=== PATIENT | female | born 1980 | race Caucasian/White ===

== ENCOUNTER 2018-01-22 03:16 | Inpatient (IN) | payer OTHER ==
[2018-01-22] VITALS (13 sets, daily range): BP systolic 88–134; BP diastolic 50–80; PULSE 93–116; RESP 15; TEMP 97.6–99; O2SAT 96–100
[~2018-01-22] VITALS: Ht 170.2 cm; Wt 71.2 kg
[2018-01-22] MEDS ORDERED: LIDOCAINE HCL 1% PF 30 ML VIAL ONE (03:36)
[2018-01-22] MEDS ORDERED: ONDANSETRON HCL 4 MG/2 ML VIAL ONE (03:37)
[2018-01-22] MEDS ORDERED: VECURONIUM BROMIDE 10 MG VIAL ONE (03:52)
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
[2018-01-22] MEDS ORDERED: IOHEXOL 350 MG/ML 10 ML VIAL (for RAD DIAG) IVCONTRAST ONE (04:23)
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
[2018-01-22] MEDS ORDERED: NURSING INFORMATION XX SCH (04:45)
[2018-01-22] MEDS ORDERED: CHLORHEXIDINE GLUCONATE 2 % 1 PACK (2 CLOTHS) TOP PRN (04:45)
[2018-01-22] MEDS ORDERED: ENALAPRILAT 1.25 MG/ML VIAL IV PUSH PRN (04:45)
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
[2018-01-22] MEDS ORDERED: NEED HT & WT SCH (05:15)
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
[2018-01-22] MEDS ORDERED: GENTAMICIN INJ 80 MG in SODIUM CHLORIDE 0.9% INJ 100 ML IV ONE (06:00)
[2018-01-22] MEDS ORDERED: PROPOFOL 500 MG/50 ML INJ 50 ML ONE (06:03)
[2018-01-22] MEDS: SODIUM CHLOR 0.9% 1000 ML INJ 1,000 ML IV SCH ×3 (06:07→19:15)
[2018-01-22] MEDS: ceFAZolin 2 GM PREMIX 50 ML IV SCH ×3 (06:07→22:03)
[2018-01-22] MEDS: PANTOPRAZOLE SODIUM 40 MG VIAL IVP SCH (06:07)
[2018-01-22 06:08] LABS: AUTOMATED NEUTROPHIL # 15.3 TH/MM3 (1.8-7.7); BASOPHIL % 0.2 % (0.0-2.0); EOSINOPHIL % 0.2 % (0.0-4.0); HEMATOCRIT 52.5 % (35.0-46.0); HEMOGLOBIN 17.5 GM/DL (11.6-15.3); LYMPH % 14.5 % (9.0-44.0); LYMPHOCYTE # 2.7 TH/MM3 (1.0-4.8); MEAN CELL VOLUME 91.7 FL (80.0-100.0); MEAN CORPUSCULAR HEMOGLOBIN 30.5 PG (27.0-34.0); MEAN CORPUSCULAR HGB CONC 33.2 % (32.0-36.0); MEAN PLATELET VOLUME 9.5 FL (7.0-11.0); MONO % 3.4 % (0.0-8.0); MONOCYTE # 0.6 TH/MM3 (0-0.9); NEUT % 81.7 % (16.0-70.0); PLATELET COUNT 196 TH/MM3 (150-450); RED BLOOD COUNT 5.73 MIL/MM3 (4.00-5.30); RED CELL DISTRIBUTION WIDTH 16.8 % (11.6-17.2); WHITE BLOOD COUNT 18.7 TH/MM3 (4.0-11.0)
[2018-01-22] MEDS: fentaNYL 2,500 MCG/NS 250 ML IV PRN ×2 (06:08→17:04)
[2018-01-22 06:23] LABS: INTERNATIONAL NORMALIZED RATIO 1.3 RATIO; PROTHROMBIN TIME - PATIENT 13.4 SEC (9.8-11.6)
[2018-01-22] MEDS ORDERED: SODIUM BICARBONATE 8.4% SOLN 50 MEQ/50 ML VIAL IV SCH (06:30)
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
--- NOTE | 2018-01-22 06:39 | MP ---
cc: Cody Olsen MD DATE OF OPERATION: 01/22/2018 PREOPERATIVE DIAGNOSIS: Left pneumothorax. POSTOPERATIVE DIAGNOSIS: Left pneumothorax. PROCEDURE PERFORMED: Placement of 28-Greenlandic chest tube. SURGEON: Obdulio Olsen MD. ANESTHESIA: 1% lidocaine. PROCEDURE NOTE: In the trauma bay, the patient's left chest was prepped and draped sterilely. 1% lidocaine was used to anesthetize the skin and subcutaneous tissue at the fourth interspace at the anterior axillary line. A skin incision was made using blunt dissection. The intercostal muscle was encountered. A Dorota clamp was used to enter the chest cavity. A joaquin of air escaped on entering. A 28-Greenlandic chest tube was placed. The tube was secured to the chest wall with a suture and then an occlusive dressing was placed. The tube was secured to the Pleur-evac. The patient tolerated the procedure well. Cody Olsen MD JLS/CAT , 05:06 AM , 06:38 AM
[2018-01-22] MEDS: METHOCARBAMOL 500 MG TAB PO SCH ×3 (06:45→22:03)
[2018-01-22] MEDS ORDERED: POTASSIUM CHLOR 20 MEQ PREMIX 100 ML IV PRN ×2 (06:45)
[2018-01-22] MEDS ORDERED: MAGNESIUM SULFATE INJ 4 GM in SODIUM CHLORIDE 0.9% INJ 92 ML IV PRN (06:45)
[2018-01-22] MEDS ORDERED: SODIUM PHOSPHATE INJ 30 MMOL in SODIUM CHLOR 0.9% 250 ML INJ 240 ML IV PRN (06:45)
[2018-01-22] MEDS ORDERED: POTASSIUM PHOSPHATE INJ 30 MMOL in SODIUM CHLOR 0.9% 250 ML INJ 250 ML IV PRN (06:45)
[2018-01-22] MEDS ORDERED: POTASSIUM CHLORIDE 25 MEQ EFFERVESCENT TAB PO PRN ×2 (06:45)
[2018-01-22] MEDS ORDERED: POTASSIUM PHOSPHATE MONOBASIC 500 MG TAB PO PRN (06:45)
[2018-01-22] MEDS ORDERED: POTASSIUM PHOSPHATE MONOBASIC 500 MG TAB PO/TUBE PRN (06:45)
[2018-01-22] MEDS ORDERED: MAGNESIUM SULFATE INJ 2 GM in SODIUM CHLORIDE 0.9% INJ 96 ML IV PRN (06:45)
[2018-01-22] MEDS ORDERED: MAGNESIUM OXIDE 400 MG TAB PO PRN (06:45)
[2018-01-22] MEDS ORDERED: POTASSIUM CHLOR 40 MEQ PREMIX 100 ML IV PRN ×2 (06:45)
[2018-01-22 07:15] LABS: BACTERIA, URINE FEW /hpf; BILIRUBIN, URINE NEG (NEG); BLOOD, URINE LARGE (NEG); GLUCOSE,URINE NEG (NEG); KETONE, URINE NEG (NEG); NITRITE,URINE NEG (NEG); SQUAMOUS EPITHELIAL CELL URINE 2 /hpf (0-5); URINE LEUKOCYTE ESTERASE TRACE (NEG)
[2018-01-22 07:17] LABS: URINE COLOR RED (YELLW/STRAW)
[2018-01-22] MEDS ORDERED: SODIUM BICARBONATE 8.4% INJ 50 MEQ/50 ML SYR ONE (07:26)
[2018-01-22] MEDS: CHLORHEXIDINE 0.12% (ORAL KIT) 15 ML CUP MT SCH ×2 (08:00→19:48)
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
[2018-01-22] MEDS: RESP: ALBUTEROL 2.5 MG/IPRATROPIUM 0.5 MG NEB (SCH) NEB ×3 (08:23→21:43)
[2018-01-22] MEDS: MAGNESIUM HYDROXIDE SUSP 30 ML CUP PO SCH ×2 (09:00→21:00)
[2018-01-22] MEDS ORDERED: MIDAZOLAM HCL 5 MG/ML VIAL (1 ML) ONE ×2 (10:20→11:28)
[2018-01-22] MEDS ORDERED: LACTATED RINGER'S 1000 ML INJ 1,000 ML IV ONE ×2 (10:45→20:00)
[2018-01-22] MEDS ORDERED: ALBUMIN 5% INJ 500 ML IV ONE (10:45)
--- NOTE | 2018-01-22 11:01 | PD.PROCEDR ---
Central Line Procedure REASON FOR PROCEDURE Central venous access PROCEDURE PERFORMED Central line placement: [left SC ] CONSENT emergency consent ANESTHESIA Local injection of 1% Lidocaine DESCRIPTION OF THE PROCEDURE The patient was placed in supine, mild Trendelenburg position. The area was exposed and cleansed with ChloraPrep, times two. Large sterile drape was used to cover the patient, with the site exposed, under sterile conditions including cap, face mask, sterile gown, and sterile gloves. On single attempt, the introducer needle was inserted with negative pressure in syringe and venous flash was obtained. The guide wire was then advanced without any restriction and the needle was removed. The dilator was used without any complications. Using Seldinger technique the [ TLC] catheter was advanced over the guide wire to a depth of [ 15] centimeters. The guide wire was removed. All ports were aspirated with dark venous blood return and flushed easily with sterile saline. All ports were capped. Antibiotic disc was placed around central line at puncture site. The central line was secured to the skin with two interrupted 2.0 silk sutures. The area was bandaged with sterile see-through central line bandage. RADIOLOGICAL DATA CXR p COMPLICATIONS: No apparent complications ESTIMATED BLOOD LOSS: Less than 1 cc. Julisa Sawyer MD Jan 22, 2018 11:01
--- NOTE | 2018-01-22 11:26 | OTSOAPIP ---
TIME SESSION COMPLETED: AM TREATMENT TIME: 0 MINS. CHART REVIEWED. INTERDISCIPLINARY COMMUNICATION: NURSING REQUEST TO HOLD TREATMENT TODAY SECONDARY TO PATIENT SCHEDULE FOR SURGERY OF LEFT LOWER EXTREMITY PLAN: WILL SEE PT NEXT TREATMENT Therapist: JULIÁN CARBAJAL/Esther Signature on file
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
[2018-01-22 12:11] LABS: HEMATOCRIT 33.6 % (35.0-46.0); HEMOGLOBIN 11.4 GM/DL (11.6-15.3)
--- NOTE | 2018-01-22 12:12 | RADRPT ---
EXAM DATE/TIME: 01/22/2018 11:33 [facility] COMPARISON: CT THORAX W CONTRAST, January 22, 2018, 4:05. CHEST SINGLE AP, January 22, 2018, 3:26. INDICATIONS : Central line placement. Evaluate for pneumothorax. MEDICAL HISTORY : None. SURGICAL HISTORY : None. ENCOUNTER: Subsequent ACUITY: 1 day PAIN SCORE: 0/10 LOCATION: chest FINDINGS: Portable AP view the chest demonstrates a normal-sized cardiac silhouette. ETT, left subclavian centr al line, nasogastric tube, and left chest tube are present. No pneumothorax is visualized. There is m ild by basilar airspace opacity. A round density nodule in the right lower lung zone measures 19 mm. CONCLUSION: 1. Left subclavian central line distal tip in the SVC. No pneumothorax is visualized. 2. Mild bibasilar airspace opacity. 1. Mickey Colin MD on January 22, 2018 at 12:06 Board Certified Radiologist. This report was verified electronically.
[2018-01-22] MEDS: LIDOCAINE HCL 5% PATCH T-DERMAL SCH (12:21)
[2018-01-22] MEDS: DOCUSATE SODIUM 50 MG/SENNA 8.6 MG TAB PO SCH ×2 (12:23→22:03)
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
[2018-01-22] MEDS ORDERED: MIDAZOLAM HCL 2 MG/2 ML VIAL IV PUSH ONE (12:45)
--- NOTE | 2018-01-22 12:55 | RADRPT ---
EXAM DATE/TIME: 01/22/2018 12:02 [facility] COMPARISON: CT ABDOMEN & PELVIS W CONTRAST, January 22, 2018, 4:05. PELVIS AP ONLY, January 22, 2018, 3:26. INDICATIONS : Fracture. MEDICAL HISTORY : None. SURGICAL HISTORY : None. ENCOUNTER: Initial ACUITY: 1 day PAIN SCORE: Non-responsive. LOCATION: Bilateral pelvis FINDINGS: Single slightly rotated AP view of the pelvis demonstrates a minimally displaced left pubic bone and superior pubic ramus fracture. There is also a displaced and comminuted fracture of the right acetabu lum with approximately 13 mm of displacement. The distal fragment is less displaced than present on t he prior examination. Proximal femurs appear intact. There is stable discontinuity of the sacral arch es. No soft tissue abnormality is seen. [place] catheter is present within the urinary bladder which co ntains excreted IV contrast. CONCLUSION: 1. Comminuted and displaced fracture of the right acetabulum. There is slightly less displacement oscar n present on the prior study. 2. Stable minimally displaced left pubic bone fracture. 3. Stable fracture through the right sacrum. Mickey Colin MD on January 22, 2018 at 12:51 Board Certified Radiologist. This report was verified electronically.
--- NOTE | 2018-01-22 12:57 | RADRPT ---
EXAM DATE/TIME: 01/22/2018 12:17 [facility] COMPARISON: TIBIA/FIBULA RIGHT ( 1 VW), January 22, 2018, 3:26. INDICATIONS : Fracture. MEDICAL HISTORY : None. SURGICAL HISTORY : None. ENCOUNTER: Initial ACUITY: 1 day PAIN SCORE: Non-responsive. LOCATION: Right knee FINDINGS: AP and lateral views of the right knee demonstrates a comminuted displaced fracture of the patella. T he distal femur and proximal tibia appear intact. Metallic traction device is present. No soft tissue abnormality is identified. There is no definite joint effusion seen. CONCLUSION: Comminuted displaced fracture of the patella. Mickey Colin MD on January 22, 2018 at 12:54 Board Certified Radiologist. This report was verified electronically.
[2018-01-22] MEDS: PROPOFOL 1000 MG/100 ML IV PRN ×3 (13:00→22:30)
--- NOTE | 2018-01-22 13:09 | RADRPT ---
EXAM DATE/TIME: 01/22/2018 12:06 [facility] COMPARISON: No previous studies available for comparison. INDICATIONS : Fracture. MEDICAL HISTORY : None. SURGICAL HISTORY : None. ENCOUNTER: Initial ACUITY: 1 day PAIN SCORE: Non-responsive. LOCATION: Left knee FINDINGS: The small amount of air within the joint capsule. There is fracture of the proximal tibia that proba augustine exits through the medial plateau. The fracture of the lateral corner of the plateau as well.. F ibular head is intact. CONCLUSION: Fracture as above. CT scan would be benefit.. Anup Diehl MD FACR on January 22, 2018 at 13:06 Board Certified Radiologist. This report was verified electronically.
--- NOTE | 2018-01-22 13:12 | RADRPT ---
EXAM DATE/TIME: 01/22/2018 12:12 [facility] COMPARISON: No previous studies available for comparison. INDICATIONS : Fracture. MEDICAL HISTORY : None. SURGICAL HISTORY : None. ENCOUNTER: Initial ACUITY: 1 day PAIN SCORE: Non-responsive. LOCATION: Left ankle FINDINGS: The fracture of the distal fibula extending above the tibial plafond. Distal tibia is intact. Align ment is anatomic about the ankle mortise. CONCLUSION: Fracture distal fibula. Anup Diehl MD FACR on January 22, 2018 at 13:09 Board Certified Radiologist. This report was verified electronically.
[2018-01-22] MEDS ORDERED: MIDAZOLAM HCL 5 MG/ML VIAL (1 ML) IV PUSH ONE (14:15)
[2018-01-22] MEDS: MIDAZOLAM 100 MG/100 ML INJ 100 ML IV PRN (16:26)
[2018-01-22] MEDS ORDERED: RASS Change Order XX ONE (16:30)
[2018-01-22 17:52] LABS: HEMATOCRIT 29.4 % (35.0-46.0); HEMOGLOBIN 10.1 GM/DL (11.6-15.3); MEAN CELL VOLUME 89.1 FL (80.0-100.0); MEAN CORPUSCULAR HEMOGLOBIN 30.7 PG (27.0-34.0); MEAN CORPUSCULAR HGB CONC 34.5 % (32.0-36.0); MEAN PLATELET VOLUME 9.4 FL (7.0-11.0); PLATELET COUNT 80 TH/MM3 (150-450); RED CELL DISTRIBUTION WIDTH 16.8 % (11.6-17.2); WHITE BLOOD COUNT 8.5 TH/MM3 (4.0-11.0)
[2018-01-22 18:18] LABS: BICARBONATE 22.5 MEQ/L (21.0-32.0); CALCIUM 6.3 MG/DL (8.5-10.1); CREATININE 1.38 MG/DL (0.50-1.00)
[2018-01-22 18:35] LABS: CALCIUM-PROTEIN CORRECTED 7.5 MG/DL (8.5-10.1); TOTAL PROTEIN 4.6 GM/DL (6.4-8.2)
[2018-01-23] VITALS (23 sets, daily range): BP systolic 55–132; BP diastolic 50–67; PULSE 88–100; RESP 15–22; TEMP 98.4–99.3; O2SAT 92–100
[2018-01-23 00:35] LABS: HEMATOCRIT 26.4 % (35.0-46.0)
[2018-01-23] MEDS: RESP: ALBUTEROL 2.5 MG/IPRATROPIUM 0.5 MG NEB (SCH) NEB ×4 (02:50→21:44)
[2018-01-23] MEDS: CHLORHEXIDINE GLUCONATE 2 % 1 PACK (2 CLOTHS) TOP SCH (04:00)
[2018-01-23] MEDS: SODIUM CHLOR 0.9% 1000 ML INJ 1,000 ML IV SCH ×2 (04:05→07:41)
[2018-01-23] MEDS: fentaNYL 2,500 MCG/NS 250 ML IV PRN ×2 (04:06→13:35)
[2018-01-23] MEDS: PROPOFOL 1000 MG/100 ML IV PRN ×3 (04:07→20:46)
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
[2018-01-23] MEDS: PANTOPRAZOLE SODIUM 40 MG VIAL IVP SCH (05:34)
[2018-01-23] MEDS: METHOCARBAMOL 500 MG TAB PO SCH ×3 (05:34→22:09)
[2018-01-23] MEDS: ceFAZolin 2 GM PREMIX 50 ML IV SCH ×3 (05:34→22:09)
[2018-01-23 06:19] LABS: AUTOMATED NEUTROPHIL # 5.4 TH/MM3 (1.8-7.7); BASOPHIL % 0.3 % (0.0-2.0); EOSINOPHIL # 0.1 TH/MM3 (0-0.4); EOSINOPHIL % 1.9 % (0.0-4.0); HEMATOCRIT 24.4 % (35.0-46.0); HEMOGLOBIN 8.4 GM/DL (11.6-15.3); LYMPH % 10.8 % (9.0-44.0); LYMPHOCYTE # 0.7 TH/MM3 (1.0-4.8); MEAN CELL VOLUME 89.7 FL (80.0-100.0); MEAN CORPUSCULAR HEMOGLOBIN 30.8 PG (27.0-34.0); MEAN CORPUSCULAR HGB CONC 34.3 % (32.0-36.0); MEAN PLATELET VOLUME 9.3 FL (7.0-11.0); MONO % 6.2 % (0.0-8.0); MONOCYTE # 0.4 TH/MM3 (0-0.9); NEUT % 80.8 % (16.0-70.0); PLATELET COUNT 68 TH/MM3 (150-450); RED BLOOD COUNT 2.72 MIL/MM3 (4.00-5.30); RED CELL DISTRIBUTION WIDTH 17.1 % (11.6-17.2); WHITE BLOOD COUNT 6.6 TH/MM3 (4.0-11.0)
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
[2018-01-23 07:12] LABS: BANDS 26 % (0-6); LYMPHOCYTES 8 % (9-44); MONOCYTES 2 % (0-8); NEUTROPHIL # MANUAL DIFF 5.9 TH/MM3 (1.8-7.7); POLYS (SEG NEUTROPHILS) 63 % (16-70)
[2018-01-23 07:20] LABS: ALBUMIN 2.1 GM/DL (3.4-5.0); BICARBONATE 22.4 MEQ/L (21.0-32.0); CREATININE 1.34 MG/DL (0.50-1.00); TOTAL BILIRUBIN ADULT 0.4 MG/DL (0.2-1.0); TOTAL PROTEIN 4.2 GM/DL (6.4-8.2)
[2018-01-23 07:30] LABS: CALCIUM-PROTEIN CORRECTED 7.4 MG/DL (8.5-10.1)
[2018-01-23] MEDS: MAGNESIUM HYDROXIDE SUSP 30 ML CUP PO SCH ×2 (08:57→22:09)
[2018-01-23] MEDS: LIDOCAINE HCL 5% PATCH T-DERMAL SCH (08:57)
[2018-01-23] MEDS: DOCUSATE SODIUM 50 MG/SENNA 8.6 MG TAB PO SCH ×2 (08:57→22:09)
[2018-01-23] MEDS: CHLORHEXIDINE 0.12% (ORAL KIT) 15 ML CUP MT SCH ×2 (09:00→20:44)
[2018-01-23] MEDS: LACTATED RINGER'S 1000 ML INJ 1,000 ML IV SCH ×2 (10:30→20:46)
[2018-01-23] MEDS ORDERED: IOHEXOL 350 MG/ML 10 ML VIAL (for RAD DIAG) IVCONTRAST ONE (10:57)
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
[2018-01-23] MEDS ORDERED: ROCURONIUM INJ 50 MG/5 ML SYRINGE IV PUSH ONE (12:00)
[2018-01-23] MEDS ORDERED: PROPOFOL 200 MG/20 ML AMP IV ONE (12:00)
[2018-01-23] MEDS ORDERED: LACTATED RINGER'S 1000 ML INJ 1,000 ML IV ONE (12:00)
[2018-01-23] MEDS ORDERED: LIDOCAINE HCL 1% PF 5 ML SYRINGE OTHER ONE (12:00)
[2018-01-23] MEDS ORDERED: CALCIUM GLUCONATE 10% 1 GM/10 ML VIAL ONE (12:20)
[2018-01-23 13:45] LABS: HEMATOCRIT 27.2 % (35.0-46.0); HEMOGLOBIN 9.9 GM/DL (11.6-15.3)
[2018-01-23] MEDS ORDERED: CALCIUM GLUCONATE INJ 1 GM in SODIUM CHLORIDE 0.9% INJ 100 ML IV ONE (14:15)
[2018-01-23] MEDS ORDERED: VANCOMYCIN HCL 1000 MG VIAL ONE (14:30)
[2018-01-23] MEDS ORDERED: SODIUM CHLOR 0.9% 250 ML INJ 250 ML ONE (14:30)
[2018-01-23] MEDS ORDERED: GENTAMICIN SULFATE 80 MG/2 ML VIAL ONE (14:30)
[2018-01-23] MEDS ORDERED: BACITRACIN TOP OINT 15 GM TUBE ONE (14:30)
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
--- NOTE | 2018-01-23 17:26 | PD.OP ---
cc: Michael Nuno MD Operative Report Date of Surgery: Jan 23, 2018 Preoperative Diagnosis: Displaced left ankle bimalleolar fracture, displaced left ulnar shaft fracture Postoperative Diagnosis: Procedure: Open reduction internal fixation left ankle bimalleolar fracture, open reduction fixation left ulna shaft fracture Surgeon: Michael Nuno Dry Wall Installer(s): Irving Agee PA-C The surgical procedure was assisted by my physician broker assistant. My P.A. presence was necessary throughout this case for the manipulation and positioning of the surgical extremity. My P.A. was assisting me throughout the duration of this procedure. The skill set of a physician broker assistant was medically necessary to complete this procedure. During the surgical case the home appliance technician was working at the back table and the physician broker assistant was directly assisting me. Operation and Findings: Implants used : ITS Patient was seen and evaluated preoperatively and found to have a displaced left ulna fracture and a left ankle fracture. Informed consent was obtained after a detailed discussion of risk and benefits of surgery. The operative sites was marked. Patient was brought to the OR, placed on the OR table, and given IV sedation and general endotracheal anesthesia. IV antibiotics were given preoperatively. A timeout procedure was performed. The left arm and left leg were prepped with alcohol followed by Hibiclens and draped in the usual sterile fashion. Attention was turned towards the distal fibula. A four-inch incision was made over the distal fibula. The subcutaneous tissue was dissected with Bovie. The fracture site was visualized. The fracture site was cleaned with curets. The fracture was now reduced. The fracture keyed into anatomic alignment. K-wires were used to hold provisional fixation. A lag screw was placed to compress fracture. A plate was selected and contoured to fit the distal fibula. The plate was provisionally held to bone with K-wires. 3.5 cortical screws were used to compress the plate to bone. Multiple screws were placed above and below the fracture. Next attention was turned towards the medial malleolus. The medial malleolus supposed through a 3 cm incision. Saphenous vein was retracted. Fracture was visualized. Fracture was cleaned with curettes. Fracture was now reduced and keyed into anatomic alignment. K wires were used to hold provisional fixation. 2 guidepins for the 4.0 cannulated screws were placed in a retrograde fashion across the fracture. Fluoroscopy was used to confirm guidepin placement. Cannulated drill was placed over the guidepin. 2 appropriate length screws were now placed. Good compression was applied. Fluoroscopy confirmed well aligned fracture with well-placed hardware. Next, attention was turned to the syndesmosis. The syndesmosis was stressed. There was no widening of the syndesmosis with external rotation of the ankle. Incisions were thoroughly irrigated. The subcutaneous tissue was closed with 3- 0 Vicryl and the skin was closed with 3-0 nylon. Next attention was turned towards the left arm. A 5 inch incision was made over the subcutaneous border of the ulna. Fracture site was visualized. Fracture was cleaned with curettes. Fracture fragments were manipulated and keyed into a appropriate alignment. Excellent reduction was achieved. K wires were used to hold provisional fixation. A plate was placed along the volar aspect of the ulna. Plate was provisionally held to bone with K wires. 3.5 cortical screws were used to compress plate to bone. Multiple screws were placed in the side of the fracture. Final fluoroscopy revealed well aligned fracture with well-placed hardware. Incision was closed with #1 Vicryl, 3-0 Vicryl, and rodir. Sterile dressings were applied. A well molded well- padded ankle splint was applied. The patient was transferred to intensive care in critical condition. Needle and sponge counts were correct. Michael Nuno MD Jan 23, 2018 17:26
--- NOTE | 2018-01-23 18:06 | RADRPT ---
EXAM DATE/TIME: 01/23/2018 16:07 [facility] COMPARISON: No previous studies available for comparison. INDICATIONS : ORIF of the left ankle. MEDICAL HISTORY : Non-responsive SURGICAL HISTORY : Non-responsive ENCOUNTER: Subsequent ACUITY: 2 days PAIN SCORE: Non-responsive. LOCATION: Left ankle CONCLUSION: Fluoroscopic images during placement of plate and screws distal fibula. 2 screws medi al malleolus. Near anatomic alignment. Mark Olivares MD on January 23, 2018 at 18:03 Board Certified Radiologist. This report was verified electronically.
[2018-01-23] MEDS ORDERED: ALBUMIN 5% INJ 500 ML IV ONE (20:15)
[2018-01-23 22:00] LABS: HEMATOCRIT 27.8 % (35.0-46.0); HEMOGLOBIN 9.7 GM/DL (11.6-15.3); MEAN CELL VOLUME 88.5 FL (80.0-100.0); MEAN CORPUSCULAR HEMOGLOBIN 30.9 PG (27.0-34.0); MEAN CORPUSCULAR HGB CONC 34.9 % (32.0-36.0); PLATELET COUNT 137 TH/MM3 (150-450); RED BLOOD COUNT 3.14 MIL/MM3 (4.00-5.30); RED CELL DISTRIBUTION WIDTH 15.7 % (11.6-17.2); WHITE BLOOD COUNT 8.8 TH/MM3 (4.0-11.0)
--- NOTE | 2018-01-23 22:10 | RADRPT ---
EXAM DATE/TIME: 01/23/2018 16:07 [facility] COMPARISON: FOREARM LEFT (2VWS), January 22, 2018, 3:26. INDICATIONS : ORIF of the left forearm. MEDICAL HISTORY : Non-responsive SURGICAL HISTORY : Non-responsive ENCOUNTER: Subsequent ACUITY: 2 days PAIN SCORE: Non-responsive. LOCATION: Left upper extremity CONCLUSION: Fluoroscopic image demonstrating plate and screws along the left ulna. Mark Olivares MD on January 23, 2018 at 22:08 Board Certified Radiologist. This report was verified electronically.
[2018-01-23 22:28] LABS: ALBUMIN 2.2 GM/DL (3.4-5.0); BICARBONATE 23.8 MEQ/L (21.0-32.0); CALCIUM 6.5 MG/DL (8.5-10.1); CALCIUM-PROTEIN CORRECTED 7.7 MG/DL (8.5-10.1); CREATININE 1.2 MG/DL (0.50-1.00); TOTAL BILIRUBIN ADULT 0.5 MG/DL (0.2-1.0); TOTAL PROTEIN 4.7 GM/DL (6.4-8.2)
[2018-01-24] VITALS (17 sets, daily range): BP systolic 117–135; BP diastolic 49–70; PULSE 96–112; RESP 18–22; TEMP 99–101.1; O2SAT 89–99
[2018-01-24] MEDS: CHLORHEXIDINE GLUCONATE 2 % 1 PACK (2 CLOTHS) TOP SCH (00:08)
[2018-01-24] MEDS: fentaNYL 2,500 MCG/NS 250 ML IV PRN ×2 (00:45→11:55)
[2018-01-24] MEDS: PROPOFOL 1000 MG/100 ML IV PRN ×3 (03:02→21:12)
[2018-01-24] MEDS: RESP: ALBUTEROL 2.5 MG/IPRATROPIUM 0.5 MG NEB (SCH) NEB ×4 (03:21→20:06)
--- NOTE | 2018-01-24 05:38 | RADRPT ---
EXAM DATE/TIME: 01/24/2018 04:46 [facility] COMPARISON: CHEST SINGLE AP, January 23, 2018, 3:41. INDICATIONS : Shortness of breath. MEDICAL HISTORY : Non-responsive SURGICAL HISTORY : Non-responsive ENCOUNTER: Subsequent ACUITY: 3 days PAIN SCORE: Non-responsive. LOCATION: Bilateral chest FINDINGS: Bibasilar consolidation and small effusions worsening, especially on the left. Left chest tube remain s in place. No pneumothorax. Heart size stable and within normal limits. Endotracheal tube tip is approximately 3 cm above the nisha. Nasogastric tube courses into the stoma ch. There is a left subclavian central venous catheter with tip in the superior vena cava. CONCLUSION: Left greater than right basilar consolidation and small effusions. There has been worsening on the le ft. No pneumothorax. Left chest tube remains in place. Mickey Kline MD on January 24, 2018 at 5:36 Board Certified Radiologist. This report was verified electronically.
[2018-01-24] MEDS: ceFAZolin 2 GM PREMIX 50 ML IV SCH ×3 (05:52→20:23)
[2018-01-24] MEDS: METHOCARBAMOL 500 MG TAB PO SCH ×3 (05:52→21:49)
[2018-01-24] MEDS: PANTOPRAZOLE SODIUM 40 MG VIAL IVP SCH (05:53)
[2018-01-24] MEDS: LACTATED RINGER'S 1000 ML INJ 1,000 ML IV SCH ×2 (05:53→16:25)
[2018-01-24 06:00] LABS: AUTOMATED NEUTROPHIL # 6.1 TH/MM3 (1.8-7.7); BASOPHIL % 0.6 % (0.0-2.0); EOSINOPHIL # 0.1 TH/MM3 (0-0.4); EOSINOPHIL % 1.9 % (0.0-4.0); HEMATOCRIT 24.6 % (35.0-46.0); HEMOGLOBIN 8.6 GM/DL (11.6-15.3); LYMPH % 8.1 % (9.0-44.0); LYMPHOCYTE # 0.6 TH/MM3 (1.0-4.8); MEAN CELL VOLUME 89.1 FL (80.0-100.0); MEAN CORPUSCULAR HGB CONC 34.8 % (32.0-36.0); MEAN PLATELET VOLUME 8.9 FL (7.0-11.0); MONO % 3.3 % (0.0-8.0); MONOCYTE # 0.2 TH/MM3 (0-0.9); NEUT % 86.1 % (16.0-70.0); PLATELET COUNT 119 TH/MM3 (150-450); RED BLOOD COUNT 2.76 MIL/MM3 (4.00-5.30); RED CELL DISTRIBUTION WIDTH 15.4 % (11.6-17.2); WHITE BLOOD COUNT 7.1 TH/MM3 (4.0-11.0)
[2018-01-24 06:22] LABS: ALBUMIN 2.3 GM/DL (3.4-5.0); BICARBONATE 23.3 MEQ/L (21.0-32.0); CALCIUM 6.5 MG/DL (8.5-10.1); CREATININE 1.2 MG/DL (0.50-1.00)
[2018-01-24 06:23] LABS: CALCIUM-PROTEIN CORRECTED 7.6 MG/DL (8.5-10.1); TOTAL BILIRUBIN ADULT 0.5 MG/DL (0.2-1.0); TOTAL PROTEIN 4.8 GM/DL (6.4-8.2)
[2018-01-24] MEDS: MAGNESIUM HYDROXIDE SUSP 30 ML CUP PO SCH ×2 (09:00→21:00)
[2018-01-24] MEDS: DOCUSATE SODIUM 50 MG/SENNA 8.6 MG TAB PO SCH ×2 (09:00→21:00)
[2018-01-24] MEDS: CHLORHEXIDINE 0.12% (ORAL KIT) 15 ML CUP MT SCH ×2 (09:01→20:00)
[2018-01-24] MEDS: MIDAZOLAM 100 MG/100 ML INJ 100 ML IV PRN (11:13)
[2018-01-24] MEDS ORDERED: ENOXAPARIN SODIUM 30 MG/0.3 ML SYRINGE SQ SCH (13:00)
[2018-01-24] MEDS: ACETAMINOPHEN 650 MG/20.3 ML UDC PO PRN (13:10)
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
[2018-01-24 18:50] LABS: HEMATOCRIT 24.8 % (35.0-46.0); HEMOGLOBIN 8.6 GM/DL (11.6-15.3)
[2018-01-24] MEDS ORDERED: ROCURONIUM INJ 50 MG/5 ML VIAL ONE ×2 (20:20)
[2018-01-24] MEDS ORDERED: ROCURONIUM INJ 50 MG/5 ML VIAL IV PRN (20:30)
[2018-01-24] MEDS ORDERED: ROCURONIUM INJ 100 MG/10 ML VIAL IV ONE (21:00)
[2018-01-24] MEDS ORDERED: CISATRACURIUM INJ 100 MG in SODIUM CHLOR 0.9% 250 ML INJ 250 ML IV PRN (21:00)
--- NOTE | 2018-01-24 21:32 | RADRPT ---
EXAM DATE/TIME: 01/24/2018 20:46 [facility] COMPARISON: CHEST SINGLE AP, January 24, 2018, 4:46. INDICATIONS : Shortness of breath. MEDICAL HISTORY : None. SURGICAL HISTORY : None. ENCOUNTER: Subsequent ACUITY: 3 days PAIN SCORE: Non-responsive. LOCATION: chest FINDINGS: Endotracheal tube, nasogastric tube, left thoracostomy tube and left subclavian central line are stab le. There has been slight interval improvement in aeration with decrease in confluence of basilar inf iltrates. Heart and contours are grossly stable. CONCLUSION: Stable to slightly improved aeration Mickey Mancilla MD on January 24, 2018 at 21:29 Board Certified Radiologist. This report was verified electronically.
[2018-01-24] MEDS: ENOXAPARIN SODIUM 30 MG/0.3 ML SYRINGE SQ SCH (21:44)
[2018-01-24] MEDS ORDERED: SODIUM BICARBONATE 8.4% SOLN 50 MEQ/50 ML VIAL IV ONE (22:45)
[2018-01-24] MEDS ORDERED: LACTATED RINGER'S 1000 ML INJ 1,000 ML IV ONE (22:45)
[2018-01-25] VITALS (19 sets, daily range): BP systolic 91–133; BP diastolic 44–61; PULSE 92–103; RESP 10–27; TEMP 99–100.2; O2SAT 94–100
[2018-01-25] MEDS: LACTATED RINGER'S 1000 ML INJ 1,000 ML IV SCH ×3 (02:30→16:47)
[2018-01-25] MEDS: PROPOFOL 1000 MG/100 ML IV PRN (02:40)
[2018-01-25] MEDS: fentaNYL 2,500 MCG/NS 250 ML IV PRN (02:59)
[2018-01-25] MEDS: RESP: ALBUTEROL 2.5 MG/IPRATROPIUM 0.5 MG NEB (SCH) NEB ×4 (03:58→20:27)
[2018-01-25] MEDS: CHLORHEXIDINE GLUCONATE 2 % 1 PACK (2 CLOTHS) TOP SCH (04:00)
[2018-01-25] MEDS: ceFAZolin 2 GM PREMIX 50 ML IV SCH ×2 (05:27→13:00)
[2018-01-25] MEDS: MIDAZOLAM 100 MG/100 ML INJ 100 ML IV PRN ×2 (05:27→15:20)
[2018-01-25] MEDS: METHOCARBAMOL 500 MG TAB PO SCH ×3 (05:27→21:00)
[2018-01-25] MEDS: PANTOPRAZOLE SODIUM 40 MG VIAL IVP SCH (05:27)
--- NOTE | 2018-01-25 05:36 | RADRPT ---
EXAM DATE/TIME: 01/25/2018 04:29 [facility] COMPARISON: CHEST SINGLE AP, January 24, 2018, 20:46. INDICATIONS : Shortness of breath MEDICAL HISTORY : None. SURGICAL HISTORY : None. ENCOUNTER: Subsequent ACUITY: 4 - 6 days PAIN SCORE: Non-responsive. LOCATION: Bilateral chest FINDINGS: Basilar predominant air space opacities again noted and not significantly changed. Left chest tube re apolinar in place. No perceptible pneumothorax. Heart size stable, upper limits of normal. Endotracheal tube tip is approximately 4 cm above the nisha. Nasogastric tube coiled in the stomach. There is a left subclavian central venous catheter with tip in the superior vena cava. CONCLUSION: No significant change Mickey Kline MD on January 25, 2018 at 5:33 Board Certified Radiologist. This report was verified electronically.
[2018-01-25 05:54] LABS: AUTOMATED NEUTROPHIL # 5.6 TH/MM3 (1.8-7.7); BASOPHIL % 0.2 % (0.0-2.0); EOSINOPHIL # 0.1 TH/MM3 (0-0.4); EOSINOPHIL % 1.9 % (0.0-4.0); HEMATOCRIT 24.9 % (35.0-46.0); HEMOGLOBIN 8.6 GM/DL (11.6-15.3); LYMPH % 6.4 % (9.0-44.0); LYMPHOCYTE # 0.4 TH/MM3 (1.0-4.8); MEAN CELL VOLUME 90.6 FL (80.0-100.0); MEAN CORPUSCULAR HEMOGLOBIN 31.2 PG (27.0-34.0); MEAN CORPUSCULAR HGB CONC 34.5 % (32.0-36.0); MEAN PLATELET VOLUME 9.2 FL (7.0-11.0); MONO % 3.6 % (0.0-8.0); MONOCYTE # 0.2 TH/MM3 (0-0.9); NEUT % 87.9 % (16.0-70.0); PLATELET COUNT 107 TH/MM3 (150-450); RED BLOOD COUNT 2.75 MIL/MM3 (4.00-5.30); RED CELL DISTRIBUTION WIDTH 15.4 % (11.6-17.2); WHITE BLOOD COUNT 6.3 TH/MM3 (4.0-11.0)
[2018-01-25 06:21] LABS: ALBUMIN 1.8 GM/DL (3.4-5.0); BICARBONATE 23.7 MEQ/L (21.0-32.0); CALCIUM 6.6 MG/DL (8.5-10.1); CALCIUM-PROTEIN CORRECTED 7.9 MG/DL (8.5-10.1); CREATININE 2.12 MG/DL (0.50-1.00); TOTAL BILIRUBIN ADULT 0.5 MG/DL (0.2-1.0); TOTAL PROTEIN 4.6 GM/DL (6.4-8.2)
[2018-01-25 06:48] LABS: BANDS 27 % (0-6); LYMPHOCYTES 12 % (9-44); MONOCYTES 4 % (0-8); MYELOCYTES 1 % (0-0); NEUTROPHIL # MANUAL DIFF 5.2 TH/MM3 (1.8-7.7); POLYS (SEG NEUTROPHILS) 54 % (16-70)
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
[2018-01-25] MEDS: LIDOCAINE HCL 5% PATCH T-DERMAL SCH (08:23)
[2018-01-25] MEDS: CHLORHEXIDINE 0.12% (ORAL KIT) 15 ML CUP MT SCH ×2 (08:24→21:01)
[2018-01-25] MEDS: MAGNESIUM HYDROXIDE SUSP 30 ML CUP PO SCH ×2 (08:24→21:00)
[2018-01-25] MEDS: DOCUSATE SODIUM 50 MG/SENNA 8.6 MG TAB PO SCH ×2 (08:24→21:00)
[2018-01-25] MEDS ORDERED: ALBUMIN 5% INJ 500 ML IV ONE (09:45)
[2018-01-25] MEDS: LACTULOSE SYRUP 20 GM/30 ML CUP PO SCH (10:34)
[2018-01-25] MEDS: fentaNYL DRIP 250 ML IV PRN (14:45)
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
[2018-01-25 18:03] LABS: BICARBONATE 24.4 MEQ/L (21.0-32.0); CALCIUM 6.6 MG/DL (8.5-10.1); CALCIUM-PROTEIN CORRECTED 7.8 MG/DL (8.5-10.1); CREATININE 2.96 MG/DL (0.50-1.00); TOTAL BILIRUBIN ADULT 0.5 MG/DL (0.2-1.0); TOTAL PROTEIN 4.8 GM/DL (6.4-8.2)
[2018-01-25] MEDS: SODIUM BICARBONATE 8.4% INJ 50 MEQ in DEXTROSE 5% IN WATE 1000ML INJ 1,000 ML IV SCH ×2 (21:00)
[2018-01-25] MEDS: ENOXAPARIN SODIUM 30 MG/0.3 ML SYRINGE SQ SCH (21:00)
[2018-01-26] VITALS (18 sets, daily range): BP systolic 96–138; BP diastolic 51–76; PULSE 84–108; RESP 16–21; TEMP 99.9–101.3; O2SAT 95–98
[2018-01-26] MEDS: MIDAZOLAM 100 MG/100 ML INJ 100 ML IV PRN (01:55)
[2018-01-26] MEDS: CHLORHEXIDINE GLUCONATE 2 % 1 PACK (2 CLOTHS) TOP SCH (04:00)
--- NOTE | 2018-01-26 04:15 | RADRPT ---
EXAM DATE/TIME: 01/26/2018 03:29 [facility] COMPARISON: CHEST SINGLE AP, January 25, 2018, 4:29. INDICATIONS : Pulmonary contusion. MEDICAL HISTORY : Non-responsive. SURGICAL HISTORY : Non-responsive. ENCOUNTER: Subsequent ACUITY: 4 - 6 days PAIN SCORE: Non-responsive. LOCATION: Bilateral chest FINDINGS: 2 portable frontal views of the chest show a new moderate size right apical pneumothorax.. Bilateral pulmonary infiltrates predominantly at the bases. Left thoracostomy tube without pneumothorax. Left s ubclavian central line. Tip of the endotracheal tube 3 cm from the nisha. Nasogastric tube coiled in the fundus. The heart is normal in size. CONCLUSION: 1. New moderate sized right apical pneumothorax. 2. No pneumothorax on the left. 3. Unchanged pulmonary infiltrates. Can Rivera Jr., MD on January 26, 2018 at 4:12 Board Certified Radiologist. This report was verified electronically.
[2018-01-26] MEDS: RESP: ALBUTEROL 2.5 MG/IPRATROPIUM 0.5 MG NEB (SCH) NEB ×2 (04:50→07:43)
[2018-01-26 05:52] LABS: AUTOMATED NEUTROPHIL # 5.8 TH/MM3 (1.8-7.7); BASOPHIL % 0.5 % (0.0-2.0); EOSINOPHIL # 0.1 TH/MM3 (0-0.4); EOSINOPHIL % 1.9 % (0.0-4.0); HEMATOCRIT 22.8 % (35.0-46.0); HEMOGLOBIN 7.6 GM/DL (11.6-15.3); LYMPHOCYTE # 0.4 TH/MM3 (1.0-4.8); MEAN CELL VOLUME 92.2 FL (80.0-100.0); MEAN CORPUSCULAR HEMOGLOBIN 30.9 PG (27.0-34.0); MEAN CORPUSCULAR HGB CONC 33.6 % (32.0-36.0); MEAN PLATELET VOLUME 9.1 FL (7.0-11.0); MONO % 4.3 % (0.0-8.0); MONOCYTE # 0.3 TH/MM3 (0-0.9); NEUT % 87.3 % (16.0-70.0); PLATELET COUNT 109 TH/MM3 (150-450); RED BLOOD COUNT 2.47 MIL/MM3 (4.00-5.30); RED CELL DISTRIBUTION WIDTH 15.7 % (11.6-17.2); WHITE BLOOD COUNT 6.6 TH/MM3 (4.0-11.0)
[2018-01-26 05:54] LABS: ALBUMIN 1.9 GM/DL (3.4-5.0); BICARBONATE 22.9 MEQ/L (21.0-32.0); CALCIUM 6.9 MG/DL (8.5-10.1); CALCIUM-PROTEIN CORRECTED 8.1 MG/DL (8.5-10.1); CREATININE 3.96 MG/DL (0.50-1.00); TOTAL BILIRUBIN ADULT 0.6 MG/DL (0.2-1.0); TOTAL PROTEIN 4.9 GM/DL (6.4-8.2)
[2018-01-26] MEDS: PANTOPRAZOLE SODIUM 40 MG VIAL IVP SCH (06:04)
[2018-01-26] MEDS: METHOCARBAMOL 500 MG TAB PO SCH ×3 (06:04→20:06)
[2018-01-26] MEDS: ACETAMINOPHEN 650 MG/20.3 ML UDC PO PRN (07:03)
[2018-01-26] MEDS: fentaNYL DRIP 250 ML IV PRN ×3 (07:04→20:08)
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
[2018-01-26] MEDS: LIDOCAINE HCL 5% PATCH T-DERMAL SCH (08:11)
[2018-01-26] MEDS: LACTULOSE SYRUP 20 GM/30 ML CUP PO SCH (08:12)
[2018-01-26] MEDS: HEPARIN SODIUM - SQ 10,000 UNITS/ML VIAL SQ SCH ×3 (08:12→20:06)
[2018-01-26] MEDS: DOCUSATE SODIUM 50 MG/SENNA 8.6 MG TAB PO SCH ×2 (08:12→20:06)
[2018-01-26] MEDS: MAGNESIUM HYDROXIDE SUSP 30 ML CUP PO SCH ×2 (08:12→20:05)
[2018-01-26] MEDS: CHLORHEXIDINE 0.12% (ORAL KIT) 15 ML CUP MT SCH ×2 (08:12→20:05)
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
[2018-01-26] MEDS: NOREPINEPHRINE-DEXTROSE DRIP 250 ML IV PRN ×2 (10:12→17:04)
[2018-01-26] MEDS ORDERED: TERBUTALINE INJ 1 MG/ML AMP SQ PRN (10:15)
[2018-01-26 10:26] LABS: AMORPHOUS SEDIMENT, URINE RARE; BACTERIA, URINE FEW /hpf; BILIRUBIN, URINE NEG (NEG); BLOOD, URINE LARGE (NEG); GLUCOSE,URINE TRACE mg/dL (NEG); KETONE, URINE NEG (NEG); NITRITE,URINE NEG (NEG); SQUAMOUS EPITHELIAL CELL URINE 42 /hpf (0-5); URINE LEUKOCYTE ESTERASE SMALL (NEG)
[2018-01-26 10:27] LABS: URINE COLOR YELLOW (YELLW/STRAW)
[2018-01-26] MEDS: CEFEPIME INJ 2,000 MG in SODIUM CHLORIDE 0.9% INJ 100 ML IV SCH ×2 (10:35→20:06)
[2018-01-26] MEDS ORDERED: LIDOCAINE 1%/EPINEPHrine 1:100,000 SOLN 30 ML VIAL ONE ×2 (12:58→12:59)
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
[2018-01-26] MEDS: VASOPRESSIN 40 U/D5W 100 ML Titrate, Post Cardiac Surgery IV PRN ×2 (14:40)
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
--- NOTE | 2018-01-26 15:24 | PD.OP ---
Operative Report Right pneumothorax Postoperative Diagnosis: Right pneumothorax Procedure: Right chest tube thoracostomy Surgeon: Julisa Sawyer An/Syq 13 Nav/C2 Operator(s): none Operation and Findings: Develop moderate-sized pneumothorax which was seen on chest x-ray-she is a multitrauma patient with multiorgan failure Technique Patient's right thoracic area was thoroughly prepped and draped using usual technique-fifth ICR level transverse incision was placed. Carried out subcutaneous tissue anterior superior margin of the rib palpated-carefully with a hemostat pleural space was entered-lump palpated in a 32 [place] chest tube inserted-chest tube was secured to skin with 0 silk-x-ray confirms good position. Julisa Sawyer MD Jan 26, 2018 15:24
[2018-01-26] MEDS: SODIUM BICARBONATE 8.4% INJ 50 MEQ in DEXTROSE 5% IN WATE 1000ML INJ 1,000 ML IV SCH ×2 (15:46)
[2018-01-26 16:25] LABS: BICARBONATE 23.1 MEQ/L (21.0-32.0); CALCIUM 7.3 MG/DL (8.5-10.1); CREATININE 4.84 MG/DL (0.50-1.00)
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
[2018-01-26 16:39] LABS: CALCIUM-PROTEIN CORRECTED 8.2 MG/DL (8.5-10.1); TOTAL PROTEIN 5.4 GM/DL (6.4-8.2)
[2018-01-26 16:59] LABS: COMPLEMENT C4 18 MG/DL (10-40)
[2018-01-26] MEDS: PROPOFOL 1000 MG/100 ML IV PRN (17:03)
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
[2018-01-26] MEDS ORDERED: SODIUM BICARB 4.2% (INF) INJ 5 MEQ/10 ML SYR IV PUSH ONE (18:00)
[2018-01-26] MEDS ORDERED: SODIUM BICARBONATE 8.4% INJ 50 MEQ/50 ML SYR ONE (18:03)
[2018-01-26] MEDS ORDERED: SODIUM BICARBONATE 8.4% INJ 50 MEQ/50 ML SYR IV ONE (18:15)
[2018-01-26] MEDS: SODIUM BICARBONATE 8.4% INJ 100 MEQ in DEXTROSE 5% IN WATE 1000ML INJ 1,000 ML IV SCH ×2 (18:36)
[2018-01-26] MEDS: CEFTAROLINE IV SCH (18:58)
[2018-01-26] MEDS: SODIUM CHLORIDE 0.9% IV SCH (18:58)
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
[2018-01-27] VITALS (19 sets, daily range): BP systolic 104–128; BP diastolic 57–72; PULSE 68–82; RESP 18; TEMP 97.2–99.7; O2SAT 92–97
[2018-01-27] MEDS: CHLORHEXIDINE GLUCONATE 2 % 1 PACK (2 CLOTHS) TOP SCH (00:24)
[2018-01-27] MEDS: NOREPINEPHRINE-DEXTROSE DRIP 250 ML IV PRN ×2 (00:25→14:11)
[2018-01-27] MEDS: fentaNYL DRIP 250 ML IV PRN ×3 (03:17→17:18)
[2018-01-27] MEDS: MIDAZOLAM 100 MG/100 ML INJ 100 ML IV PRN ×2 (03:18→18:54)
[2018-01-27] MEDS: SODIUM BICARBONATE 8.4% INJ 100 MEQ in DEXTROSE 5% IN WATE 1000ML INJ 1,000 ML IV SCH ×4 (05:19→15:32)
[2018-01-27 05:40] LABS: AUTOMATED NEUTROPHIL # 6.5 TH/MM3 (1.8-7.7); BASOPHIL % 0.3 % (0.0-2.0); EOSINOPHIL # 0.1 TH/MM3 (0-0.4); EOSINOPHIL % 0.9 % (0.0-4.0); HEMATOCRIT 21.9 % (35.0-46.0); HEMOGLOBIN 7.5 GM/DL (11.6-15.3); LYMPH % 4.5 % (9.0-44.0); LYMPHOCYTE # 0.3 TH/MM3 (1.0-4.8); MEAN CELL VOLUME 91.7 FL (80.0-100.0); MEAN CORPUSCULAR HEMOGLOBIN 31.2 PG (27.0-34.0); MEAN PLATELET VOLUME 9.4 FL (7.0-11.0); MONO % 4.9 % (0.0-8.0); MONOCYTE # 0.4 TH/MM3 (0-0.9); NEUT % 89.4 % (16.0-70.0); PLATELET COUNT 119 TH/MM3 (150-450); RED BLOOD COUNT 2.39 MIL/MM3 (4.00-5.30); RED CELL DISTRIBUTION WIDTH 15.5 % (11.6-17.2); WHITE BLOOD COUNT 7.3 TH/MM3 (4.0-11.0)
[2018-01-27 05:55] LABS: ALBUMIN 1.6 GM/DL (3.4-5.0); ALT (GPT) LESS THAN 6 U/L (10-53); AST (GOT) 57 U/L (15-37); BICARBONATE 24.1 MEQ/L (21.0-32.0); BLOOD UREA NITROGEN 38 MG/DL (7-18); CALCIUM 7.4 MG/DL (8.5-10.1); CHLORIDE 106 MEQ/L (98-107); CREATININE 5.49 MG/DL (0.50-1.00); GLOMERULAR FILTRATION RATE 7 ML/MIN (>89); GLUCOSE,RANDOM 139 MG/DL (74-106); SODIUM (NA) 139 MEQ/L (136-145)
[2018-01-27 05:58] LABS: ALKALINE PHOSPHATASE 103 U/L (45-117); CALCIUM-PROTEIN CORRECTED 8.5 MG/DL (8.5-10.1); TOTAL BILIRUBIN ADULT 0.6 MG/DL (0.2-1.0); TOTAL PROTEIN 5.2 GM/DL (6.4-8.2)
[2018-01-27] MEDS: CEFTAROLINE IV SCH ×2 (06:17→17:58)
[2018-01-27] MEDS: SODIUM CHLORIDE 0.9% IV SCH ×2 (06:17→17:58)
[2018-01-27] MEDS: PROPOFOL 1000 MG/100 ML IV PRN ×2 (06:18→17:18)
[2018-01-27] MEDS: METHOCARBAMOL 500 MG TAB PO SCH ×3 (06:18→21:00)
[2018-01-27] MEDS: HEPARIN SODIUM - SQ 10,000 UNITS/ML VIAL SQ SCH ×3 (06:18→21:00)
[2018-01-27] MEDS: VASOPRESSIN 40 U/D5W 100 ML Titrate, Post Cardiac Surgery IV PRN ×4 (06:19→21:00)
[2018-01-27] MEDS: CHLORHEXIDINE 0.12% (ORAL KIT) 15 ML CUP MT SCH ×2 (08:00→20:54)
[2018-01-27] MEDS: DOCUSATE SODIUM 50 MG/SENNA 8.6 MG TAB PO SCH ×2 (08:34→10:21)
[2018-01-27] MEDS: MAGNESIUM HYDROXIDE SUSP 30 ML CUP PO SCH ×3 (08:34→20:59)
[2018-01-27] MEDS: LACTULOSE SYRUP 20 GM/30 ML CUP PO SCH ×2 (08:34→09:00)
[2018-01-27] MEDS: LIDOCAINE HCL 5% PATCH T-DERMAL SCH (09:00)
[2018-01-27] MEDS: CEFEPIME INJ 2,000 MG in SODIUM CHLORIDE 0.9% INJ 100 ML IV SCH (10:20)
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
[2018-01-27] MEDS: METOCLOPRAMIDE HCL 10 MG/2 ML VIAL IV PUSH SCH ×2 (13:23→21:00)
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
[2018-01-27] MEDS ORDERED: HEPARIN SODIUM - IV 10,000 UNITS/10 ML VIAL ONE (16:36)
--- NOTE | 2018-01-27 16:50 | PD.PROCEDR ---
Central Line Procedure REASON FOR PROCEDURE HD PROCEDURE PERFORMED Central line placement: [ ]HD line insertion left femoral vein CONSENT Informed consent for procedure was obtained . The risks and benefits of the procedure were discussed to include but limited to bleeding, clot formation, infection, and even . ANESTHESIA Patient on propofol,fentanyl DESCRIPTION OF THE PROCEDURE The area was exposed and cleansed with ChloraPrep, times two. Large sterile drape was used to cover the patient, with the site exposed, under sterile conditions including cap, face mask, sterile gown, and sterile gloves. On single attempt, the introducer needle was inserted with negative pressure in syringe and venous flash was obtained. The guide wire was then advanced without any restriction and the needle was removed. The dilator was used without any complications. Using Seldinger technique the a double lumen H D catheter was advanced over the guide wire to a depth of [15 ] centimeters. The guide wire was removed. All ports were aspirated with dark venous blood return and flushed easily with sterile saline and heparin All ports were capped. Antibiotic disc was placed around central line at puncture site. The central line was secured to the skin with two interrupted 2.0 silk sutures. The area was bandaged with sterile see-through central line bandage. RADIOLOGICAL DATA COMPLICATIONS: No apparent complications ESTIMATED BLOOD LOSS: Less than 1 cc. Julisa Sawyer MD Jan 27, 2018 16:50
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
[2018-01-28] VITALS (27 sets, daily range): BP systolic 92–118; BP diastolic 46–62; PULSE 66–73; RESP 18–24; TEMP 96.8–98.1; O2SAT 91–97
[2018-01-28] MEDS: fentaNYL DRIP 250 ML IV PRN ×3 (00:15→15:15)
[2018-01-28] MEDS: PROPOFOL 1000 MG/100 ML IV PRN ×2 (00:17→23:00)
[2018-01-28] MEDS: SODIUM BICARBONATE 8.4% INJ 100 MEQ in DEXTROSE 5% IN WATE 1000ML INJ 1,000 ML IV SCH ×4 (03:00→16:45)
[2018-01-28] MEDS: CHLORHEXIDINE GLUCONATE 2 % 1 PACK (2 CLOTHS) TOP SCH (04:00)
--- NOTE | 2018-01-28 04:22 | RADRPT ---
EXAM DATE/TIME: 01/28/2018 02:58 [facility] COMPARISON: CHEST SINGLE AP, January 27, 2018, 11:02. INDICATIONS : Evaluate for pneumothorax. MEDICAL HISTORY : Smoker. SURGICAL HISTORY : section. Tonsillectomy. ENCOUNTER: Subsequent ACUITY: 4 - 6 days PAIN SCORE: Non-responsive. LOCATION: Bilateral chest FINDINGS: Bilateral thoracostomy tubes and nasogastric tube. No pneumothorax on either side. Subcutaneous air o verlies the right chest. Left-sided central line. Heart secured to limits of normal in terms of size. Diffuse consolidation throughout both lungs. Appearance is stable. CONCLUSION: 1. No significant change. 2. No pneumothorax. 3. Diffuse bilateral pulmonary infiltrates. Can Rivera Jr., MD on January 28, 2018 at 4:20 Board Certified Radiologist. This report was verified electronically.
[2018-01-28] MEDS: CEFTAROLINE IV SCH (05:24)
[2018-01-28] MEDS: METHOCARBAMOL 500 MG TAB PO SCH (05:24)
[2018-01-28] MEDS: SODIUM CHLORIDE 0.9% IV SCH (05:24)
[2018-01-28] MEDS: METOCLOPRAMIDE HCL 10 MG/2 ML VIAL IV PUSH SCH ×3 (05:24→21:40)
[2018-01-28] MEDS: HEPARIN SODIUM - SQ 10,000 UNITS/ML VIAL SQ SCH ×3 (05:24→22:00)
[2018-01-28 05:40] LABS: AUTOMATED NEUTROPHIL # 5.3 TH/MM3 (1.8-7.7); BASOPHIL % 0.4 % (0.0-2.0); EOSINOPHIL # 0.3 TH/MM3 (0-0.4); LYMPH % 6.6 % (9.0-44.0); LYMPHOCYTE # 0.4 TH/MM3 (1.0-4.8); MEAN CELL VOLUME 91.4 FL (80.0-100.0); MEAN CORPUSCULAR HEMOGLOBIN 31.2 PG (27.0-34.0); MEAN CORPUSCULAR HGB CONC 34.1 % (32.0-36.0); MEAN PLATELET VOLUME 9.4 FL (7.0-11.0); MONO % 4.5 % (0.0-8.0); MONOCYTE # 0.3 TH/MM3 (0-0.9); NEUT % 84.5 % (16.0-70.0); PLATELET COUNT 148 TH/MM3 (150-450); RED BLOOD COUNT 2.12 MIL/MM3 (4.00-5.30); RED CELL DISTRIBUTION WIDTH 15.3 % (11.6-17.2); WHITE BLOOD COUNT 6.3 TH/MM3 (4.0-11.0)
[2018-01-28 05:53] LABS: HEMATOCRIT 19.4 % (35.0-46.0); HEMOGLOBIN 6.6 GM/DL (11.6-15.3)
[2018-01-28 06:23] LABS: ALBUMIN 1.3 GM/DL (3.4-5.0); ALKALINE PHOSPHATASE 95 U/L (45-117); ALT (GPT) LESS THAN 6 U/L (10-53); AST (GOT) 31 U/L (15-37); BICARBONATE 25.8 MEQ/L (21.0-32.0); BLOOD UREA NITROGEN 49 MG/DL (7-18); CALCIUM 7.4 MG/DL (8.5-10.1); CALCIUM-PROTEIN CORRECTED 8.8 MG/DL (8.5-10.1); CHLORIDE 101 MEQ/L (98-107); CREATININE 6.14 MG/DL (0.50-1.00); GLOMERULAR FILTRATION RATE 6 ML/MIN (>89); GLUCOSE,RANDOM 103 MG/DL (74-106); SODIUM (NA) 138 MEQ/L (136-145); TOTAL BILIRUBIN ADULT 0.7 MG/DL (0.2-1.0); TOTAL PROTEIN 4.7 GM/DL (6.4-8.2)
[2018-01-28] MEDS: ONDANSETRON HCL 4 MG/2 ML VIAL IV PUSH PRN (06:43)
[2018-01-28] MEDS: CHLORHEXIDINE 0.12% (ORAL KIT) 15 ML CUP MT SCH ×2 (08:00→21:19)
[2018-01-28] MEDS: DOCUSATE SODIUM 50 MG/SENNA 8.6 MG TAB PO SCH ×2 (08:43→21:40)
[2018-01-28] MEDS: MAGNESIUM HYDROXIDE SUSP 30 ML CUP PO SCH ×2 (08:43→21:40)
[2018-01-28] MEDS: LACTULOSE SYRUP 20 GM/30 ML CUP PO SCH (08:43)
[2018-01-28] MEDS ORDERED: ROCURONIUM INJ 50 MG/5 ML VIAL ONE (09:14)
--- NOTE | 2018-01-28 09:45 | PD.PROCEDR ---
Procedure Note Procedure Diagnosis: Acute hypoxemic respiratory failure Procedure: Orotracheal intubation Narrative: Patient has developed a cuff leak and ventilatory volumes are affected. Timeout performed and patient properly identified. Ventilator placed to 100% oxygen delivery, rate 18. Propofol and Versed sedation infusing. Rocuronium 100 mg intravenous. Oxygen saturation 99%. Ventilatory circuit disconnected and tube exchanger passed through indwelling orotracheal tube to a distance of 38 cm. Old endotracheal tube removed and new 7.5 mm endotracheal tube passed over the indwelling tube exchanger to a distance of 34 cm from the teeth. Position confirmed with end-tidal CO2 analyzer. Good bilateral breath sounds appreciated immediately. Reconnected to ventilatory circuit with return of tidal volumes and acceptable airway pressure. New endotracheal tube attached to Whigham device. Chest x-ray confirms endotracheal tube in good position. Jareth Ontiveros MD Jan 28, 2018 09:45
--- NOTE | 2018-01-28 09:52 | RADRPT ---
EXAM DATE/TIME: 01/28/2018 09:29 [facility] COMPARISON: CHEST SINGLE AP, January 28, 2018, 2:58. INDICATIONS : Status post intubation. Respiratory failure MEDICAL HISTORY : None. SURGICAL HISTORY : None. ENCOUNTER: Subsequent ACUITY: 1 day PAIN SCORE: Non-responsive. LOCATION: Bilateral chest FINDINGS: A single AP supine portable view of the chest was obtained and demonstrates interval placement of an endotracheal tube with the tip approximately 1 cm above the level the nisha. The nasogastric tube re apolinar in place. There are bilateral chest tubes again noted with a small right apical pneumothorax. T he left subclavian transvenous pacer remains in place. Hazy opacity remains in both lungs which appea rs mildly increased. There is subcutaneous emphysema over the right chest wall. The heart size is at the upper limits of normal. Multiple overlying electrocardiogram leads are present. CONCLUSION: 1. Interval placement endotracheal tube tip 1 cm above the nisha. 2. Small right apical pneumothorax. 3. Hazy opacity remains in both lungs which appears mildly increased. Maverick Yepez MD on January 28, 2018 at 9:46 Board Certified Radiologist. This report was verified electronically.
[2018-01-28] MEDS ORDERED: CEFEPIME INJ 2,000 MG in SODIUM CHLORIDE 0.9% INJ 100 ML IV SCH (10:00)
[2018-01-28] MEDS: RESP: ALBUTEROL 2.5 MG/IPRATROPIUM 0.5 MG NEB (SCH) NEB ×3 (12:18→20:04)
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
[2018-01-28] MEDS ORDERED: KCL/AQUEOUS SOLN Dialysate additive PRN (14:45)
[2018-01-28] MEDS ORDERED: HEPARIN 25,000 UNITS-D5W 250 ML IV PRN (14:45)
[2018-01-28] MEDS ORDERED: PROTAMINE SULFATE 250 MG in NS 250 ML IV PRN (14:45)
[2018-01-28] MEDS ORDERED: HEPARIN IV 10,000 U/10 ML VIAL PRIMING OTHER PRN (14:45)
[2018-01-28] MEDS: SODIUM CHLOR 0.9% 1000 ML INJ 1,000 ML OTHER SCH ×5 (15:00→23:53)
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
[2018-01-28] MEDS: MIDAZOLAM 100 MG/100 ML INJ 100 ML IV PRN (15:15)
[2018-01-28] MEDS ORDERED: HEPARIN 25,000 UNITS-D5W 250 ML OTHER PRN (15:45)
[2018-01-28] MEDS ORDERED: CALCIUM GLUCONATE 10% 1 GM/10 ML VIAL IV PUSH PRN (16:45)
[2018-01-28] MEDS ORDERED: SODIUM PHOSPHATE INJ 15 MMOL in SODIUM CHLORIDE 0.9% INJ 150 ML IV PRN (16:45)
[2018-01-28 16:58] LABS: BICARBONATE 26.8 MEQ/L (21.0-32.0); CALCIUM 7.6 MG/DL (8.5-10.1); CREATININE 4.78 MG/DL (0.50-1.00)
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
[2018-01-28] MEDS: POTASSIUM CHLOR 10 MEQ PREMIX 100 ML IV PRN (17:48)
[2018-01-28 18:00] LABS: CALCIUM-PROTEIN CORRECTED 8.9 MG/DL (8.5-10.1); TOTAL PROTEIN 4.9 GM/DL (6.4-8.2)
[2018-01-28] MEDS: VASOPRESSIN 40 U/D5W 100 ML Titrate, Post Cardiac Surgery IV PRN ×2 (18:19)
[2018-01-28 19:08] LABS: AUTOMATED NEUTROPHIL # 6.7 TH/MM3 (1.8-7.7); BASOPHIL % 0.3 % (0.0-2.0); EOSINOPHIL # 0.2 TH/MM3 (0-0.4); EOSINOPHIL % 2.6 % (0.0-4.0); HEMATOCRIT 23.7 % (35.0-46.0); HEMOGLOBIN 8.4 GM/DL (11.6-15.3); LYMPH % 4.9 % (9.0-44.0); LYMPHOCYTE # 0.4 TH/MM3 (1.0-4.8); MEAN CELL VOLUME 86.1 FL (80.0-100.0); MEAN CORPUSCULAR HEMOGLOBIN 30.4 PG (27.0-34.0); MEAN CORPUSCULAR HGB CONC 35.3 % (32.0-36.0); MONO % 4.5 % (0.0-8.0); MONOCYTE # 0.3 TH/MM3 (0-0.9); NEUT % 87.7 % (16.0-70.0); PLATELET COUNT 144 TH/MM3 (150-450); RED BLOOD COUNT 2.76 MIL/MM3 (4.00-5.30); RED CELL DISTRIBUTION WIDTH 16.1 % (11.6-17.2); WHITE BLOOD COUNT 7.7 TH/MM3 (4.0-11.0)
[2018-01-28 21:18] LABS: BANDS 3 % (0-6); CORRECTED NUCLEATED RBC 1 /100 WBC (0-0); LYMPHOCYTES 6 % (9-44); METAMYELOCYTES 1 % (0-1); MONOCYTES 10 % (0-8); NEUTROPHIL # MANUAL DIFF 6.4 TH/MM3 (1.8-7.7); NUCLEATED RED BLOOD CELL 1 (0-0); POLYS (SEG NEUTROPHILS) 79 % (16-70)
[2018-01-28 23:03] LABS: BICARBONATE 25.1 MEQ/L (21.0-32.0); CALCIUM 7.6 MG/DL (8.5-10.1); CREATININE 5.34 MG/DL (0.50-1.00); MAGNESIUM 2.2 MG/DL (1.5-2.5)
[2018-01-29] VITALS (18 sets, daily range): BP systolic 109–121; BP diastolic 52–60; PULSE 69–93; RESP 24; TEMP 97.7–99; O2SAT 95–96
[2018-01-29] MEDS: SODIUM CHLOR 0.9% 1000 ML INJ 1,000 ML OTHER SCH ×12 (01:00→23:00)
[2018-01-29] MEDS: fentaNYL DRIP 250 ML IV PRN ×2 (02:12→11:27)
[2018-01-29] MEDS: RESP: ALBUTEROL 2.5 MG/IPRATROPIUM 0.5 MG NEB (SCH) NEB ×4 (03:40→20:21)
[2018-01-29] MEDS: CHLORHEXIDINE GLUCONATE 2 % 1 PACK (2 CLOTHS) TOP SCH ×2 (04:00→23:38)
[2018-01-29 04:32] LABS: AUTOMATED NEUTROPHIL # 6.3 TH/MM3 (1.8-7.7); BASOPHIL % 0.5 % (0.0-2.0); EOSINOPHIL # 0.2 TH/MM3 (0-0.4); HEMATOCRIT 23.6 % (35.0-46.0); HEMOGLOBIN 8.2 GM/DL (11.6-15.3); LYMPH % 6.6 % (9.0-44.0); LYMPHOCYTE # 0.5 TH/MM3 (1.0-4.8); MEAN CELL VOLUME 87.3 FL (80.0-100.0); MEAN CORPUSCULAR HEMOGLOBIN 30.3 PG (27.0-34.0); MEAN CORPUSCULAR HGB CONC 34.7 % (32.0-36.0); MEAN PLATELET VOLUME 9.2 FL (7.0-11.0); MONO % 4.9 % (0.0-8.0); MONOCYTE # 0.4 TH/MM3 (0-0.9); PLATELET COUNT 163 TH/MM3 (150-450); RED BLOOD COUNT 2.71 MIL/MM3 (4.00-5.30); RED CELL DISTRIBUTION WIDTH 16.5 % (11.6-17.2); WHITE BLOOD COUNT 7.4 TH/MM3 (4.0-11.0)
[2018-01-29 05:06] LABS: CALCIUM 7.7 MG/DL (8.5-10.1); CREATININE 5.35 MG/DL (0.50-1.00)
[2018-01-29 05:07] LABS: TOTAL PROTEIN 4.9 GM/DL (6.4-8.2)
[2018-01-29] MEDS: HEPARIN SODIUM - SQ 10,000 UNITS/ML VIAL SQ SCH ×4 (06:00→21:50)
[2018-01-29] MEDS: METOCLOPRAMIDE HCL 10 MG/2 ML VIAL IV PUSH SCH (06:07)
[2018-01-29] MEDS: CHLORHEXIDINE 0.12% (ORAL KIT) 15 ML CUP MT SCH ×2 (07:15→20:00)
[2018-01-29 07:44] LABS: BANDS 31 % (0-6); LYMPHOCYTES 2 % (9-44); MONOCYTES 3 % (0-8); NEUTROPHIL # MANUAL DIFF 6.4 TH/MM3 (1.8-7.7); PLASMA CELLS 2 % (0-0); POLYS (SEG NEUTROPHILS) 56 % (16-70)
[2018-01-29] MEDS: DOCUSATE SODIUM 50 MG/SENNA 8.6 MG TAB PO SCH ×2 (07:45→20:00)
[2018-01-29] MEDS: MAGNESIUM HYDROXIDE SUSP 30 ML CUP PO SCH ×2 (07:45→20:00)
[2018-01-29] MEDS: LACTULOSE SYRUP 20 GM/30 ML CUP PO SCH (07:45)
[2018-01-29 07:46] LABS: TOXIC GRANULATION 2+ (NORMAL)
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
[2018-01-29] MEDS: PROPOFOL 1000 MG/100 ML IV PRN ×2 (09:00→20:00)
[2018-01-29 11:15] LABS: BICARBONATE 24.3 MEQ/L (21.0-32.0); CALCIUM 7.7 MG/DL (8.5-10.1); CREATININE 5.54 MG/DL (0.50-1.00); MAGNESIUM 2.1 MG/DL (1.5-2.5); PHOSPHORUS 3.3 MG/DL (2.5-4.9)
[2018-01-29 11:16] LABS: TOTAL PROTEIN 4.9 GM/DL (6.4-8.2)
[2018-01-29] MEDS: POTASSIUM CHLOR 10 MEQ PREMIX 100 ML IV PRN (11:28)
[2018-01-29] MEDS: PANTOPRAZOLE SODIUM 40 MG VIAL IV PUSH SCH (11:28)
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
[2018-01-29] MEDS: VASOPRESSIN 40 U/D5W 100 ML Titrate, Post Cardiac Surgery IV PRN ×2 (14:11)
[2018-01-29] MEDS: CEFEPIME INJ 1,000 MG in SODIUM CHLORIDE 0.9% INJ 100 ML IV SCH (14:14)
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
[2018-01-29 23:19] LABS: BICARBONATE 23.9 MEQ/L (21.0-32.0); CALCIUM 7.5 MG/DL (8.5-10.1); CREATININE 5.54 MG/DL (0.50-1.00); PHOSPHORUS 3.8 MG/DL (2.5-4.9)
[2018-01-30] VITALS (17 sets, daily range): BP systolic 114–126; BP diastolic 53–66; PULSE 66–94; RESP 22–26; TEMP 97.8–100; O2SAT 93–97
[2018-01-30] MEDS: POTASSIUM CHLOR 10 MEQ PREMIX 100 ML IV PRN (00:10)
[2018-01-30 00:39] LABS: CALCIUM 7.6 MG/DL (8.5-10.1)
[2018-01-30 00:40] LABS: CALCIUM-PROTEIN CORRECTED 8.9 MG/DL (8.5-10.1); TOTAL PROTEIN 4.8 GM/DL (6.4-8.2)
[2018-01-30] MEDS: SODIUM CHLOR 0.9% 1000 ML INJ 1,000 ML OTHER SCH ×12 (00:59→21:12)
[2018-01-30] MEDS: RESP: ALBUTEROL 2.5 MG/IPRATROPIUM 0.5 MG NEB (SCH) NEB ×4 (04:01→20:16)
[2018-01-30 05:51] LABS: AUTOMATED NEUTROPHIL # 8.7 TH/MM3 (1.8-7.7); BASOPHIL % 0.4 % (0.0-2.0); EOSINOPHIL # 0.3 TH/MM3 (0-0.4); EOSINOPHIL % 3.3 % (0.0-4.0); HEMATOCRIT 23.9 % (35.0-46.0); HEMOGLOBIN 8.2 GM/DL (11.6-15.3); LYMPH % 5.1 % (9.0-44.0); LYMPHOCYTE # 0.5 TH/MM3 (1.0-4.8); MEAN CORPUSCULAR HEMOGLOBIN 30.3 PG (27.0-34.0); MEAN CORPUSCULAR HGB CONC 34.5 % (32.0-36.0); MEAN PLATELET VOLUME 8.7 FL (7.0-11.0); MONO % 5.2 % (0.0-8.0); MONOCYTE # 0.5 TH/MM3 (0-0.9); PLATELET COUNT 168 TH/MM3 (150-450); RED BLOOD COUNT 2.72 MIL/MM3 (4.00-5.30); RED CELL DISTRIBUTION WIDTH 16.4 % (11.6-17.2); WHITE BLOOD COUNT 10.1 TH/MM3 (4.0-11.0)
--- NOTE | 2018-01-30 05:52 | RADRPT ---
EXAM DATE/TIME: 01/30/2018 05:02 [facility] COMPARISON: CHEST SINGLE AP, January 28, 2018, 9:29. INDICATIONS : Respiratory failure. MEDICAL HISTORY : None. SURGICAL HISTORY : None. ENCOUNTER: Subsequent ACUITY: 1 week PAIN SCORE: Non-responsive. LOCATION: Bilateral chest FINDINGS: Endotracheal tube and nasogastric tube in good position. Bilateral chest tubes without significant pn eumothorax. Left central line in left brachiocephalic vein. Improving subcutaneous air on the right. Right pneumothorax no longer visualized. Bilateral airspace disease relatively stable. CONCLUSION: 1. Improving subcutaneous air on the right with resolution of right pneumothorax. Bilateral chest tub es remain. Bilateral airspace disease similar to January 28. Obdulio Seo MD on January 30, 2018 at 5:49 Board Certified Radiologist. This report was verified electronically.
[2018-01-30 06:10] LABS: BICARBONATE 20.9 MEQ/L (21.0-32.0); CALCIUM 7.6 MG/DL (8.5-10.1); CREATININE 4.86 MG/DL (0.50-1.00); PHOSPHORUS 3.9 MG/DL (2.5-4.9)
[2018-01-30 06:11] LABS: TOTAL PROTEIN 4.7 GM/DL (6.4-8.2)
[2018-01-30] MEDS: HEPARIN SODIUM - SQ 10,000 UNITS/ML VIAL SQ SCH ×3 (06:37→21:11)
[2018-01-30] MEDS: CHLORHEXIDINE 0.12% (ORAL KIT) 15 ML CUP MT SCH ×2 (08:14→20:02)
[2018-01-30] MEDS: PANTOPRAZOLE SODIUM 40 MG VIAL IV PUSH SCH (08:14)
[2018-01-30] MEDS: MAGNESIUM HYDROXIDE SUSP 30 ML CUP PO SCH ×2 (08:15→21:11)
[2018-01-30] MEDS: LACTULOSE SYRUP 20 GM/30 ML CUP PO SCH (08:15)
[2018-01-30] MEDS: DOCUSATE SODIUM 50 MG/SENNA 8.6 MG TAB PO SCH ×2 (08:15→21:11)
[2018-01-30] MEDS: PROPOFOL 1000 MG/100 ML IV PRN ×2 (08:15→15:36)
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
[2018-01-30] MEDS ORDERED: FUROSEMIDE 100 MG/10 ML VIAL IV PUSH ONE (10:30)
[2018-01-30] MEDS ORDERED: SODIUM CHLOR 0.9% 1000 ML INJ 1,000 ML IV PRN (10:32)
[2018-01-30] MEDS ORDERED: SODIUM CHLOR 0.9% 1000 ML INJ 1,000 ML OTHER PRN (10:32)
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
[2018-01-30] MEDS ORDERED: NITROGLYCERIN 0.4 MG SL 25 TABS/BTL SL PRN (10:45)
[2018-01-30] MEDS ORDERED: cloNIDine HCL 0.1 MG TAB PO PRN (10:45)
[2018-01-30] MEDS ORDERED: MANNITOL 12.5 GM/50 ML VIAL IV PRN (10:45)
[2018-01-30] MEDS ORDERED: SODIUM CHLORIDE 0.9% FLUSH 10 ML FLUSH IV FLUSH PRN (10:45)
[2018-01-30] MEDS ORDERED: ONDANSETRON HCL 4 MG/2 ML VIAL IV PUSH PRN (10:45)
[2018-01-30] MEDS ORDERED: GELATIN 12 MM/7 MM FOAM TOP PRN (10:45)
[2018-01-30] MEDS ORDERED: HEPARIN SODIUM - IV 10,000 UNITS/10 ML VIAL IV FLUSH PRN (10:45)
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
[2018-01-30] MEDS: CEFEPIME INJ 1,000 MG in SODIUM CHLORIDE 0.9% INJ 100 ML IV SCH (13:52)
[2018-01-30] MEDS: fentaNYL DRIP 250 ML IV PRN (13:54)
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
[2018-01-30] MEDS: GENTAMICIN SULFATE 20 MG/2 ML VIAL OTHER PRN (18:52)
[2018-01-30] MEDS: HEPARIN SODIUM - IV 10,000 UNITS/10 ML VIAL PRN (18:52)
[2018-01-30] MEDS: CHLORHEXIDINE GLUCONATE 2 % 1 PACK (2 CLOTHS) TOP SCH (21:08)
[2018-01-30] MEDS: VASOPRESSIN 40 U/D5W 100 ML Titrate, Post Cardiac Surgery IV PRN ×2 (23:58)
[2018-01-31] VITALS (18 sets, daily range): BP systolic 124–141; BP diastolic 56–67; PULSE 88–106; RESP 20–25; TEMP 99.5–100.6; O2SAT 95–97
[2018-01-31] MEDS: PROPOFOL 1000 MG/100 ML IV PRN ×2 (00:57→11:24)
[2018-01-31] MEDS: RESP: ALBUTEROL 2.5 MG/IPRATROPIUM 0.5 MG NEB (SCH) NEB ×4 (03:05→21:00)
[2018-01-31] MEDS: HEPARIN SODIUM - SQ 10,000 UNITS/ML VIAL SQ SCH ×3 (05:51→20:35)
[2018-01-31] MEDS: fentaNYL DRIP 250 ML IV PRN ×2 (05:51→16:49)
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
[2018-01-31 06:10] LABS: AUTOMATED NEUTROPHIL # 10.1 TH/MM3 (1.8-7.7); BASOPHIL % 0.3 % (0.0-2.0); EOSINOPHIL # 0.4 TH/MM3 (0-0.4); EOSINOPHIL % 3.3 % (0.0-4.0); HEMATOCRIT 22.7 % (35.0-46.0); HEMOGLOBIN 7.8 GM/DL (11.6-15.3); LYMPH % 6.6 % (9.0-44.0); LYMPHOCYTE # 0.8 TH/MM3 (1.0-4.8); MEAN CELL VOLUME 88.5 FL (80.0-100.0); MEAN CORPUSCULAR HEMOGLOBIN 30.3 PG (27.0-34.0); MEAN CORPUSCULAR HGB CONC 34.3 % (32.0-36.0); MEAN PLATELET VOLUME 8.6 FL (7.0-11.0); MONO % 5.5 % (0.0-8.0); MONOCYTE # 0.7 TH/MM3 (0-0.9); NEUT % 84.3 % (16.0-70.0); PLATELET COUNT 255 TH/MM3 (150-450); RED BLOOD COUNT 2.56 MIL/MM3 (4.00-5.30); RED CELL DISTRIBUTION WIDTH 15.8 % (11.6-17.2)
[2018-01-31 06:39] LABS: BICARBONATE 22.9 MEQ/L (21.0-32.0); CALCIUM 8.3 MG/DL (8.5-10.1); CREATININE 4.7 MG/DL (0.50-1.00)
[2018-01-31] MEDS: SODIUM CHLOR 0.9% 1000 ML INJ 1,000 ML OTHER SCH ×9 (07:00→23:00)
[2018-01-31 08:00] LABS: BANDS 21 % (0-6); CORRECTED NUCLEATED RBC 6 /100 WBC (0-0); LYMPHOCYTES 3 % (9-44); MONOCYTES 7 % (0-8); NEUTROPHIL # MANUAL DIFF 10.6 TH/MM3 (1.8-7.7); NUCLEATED RED BLOOD CELL 6 (0-0); POLYS (SEG NEUTROPHILS) 67 % (16-70)
[2018-01-31] MEDS: CHLORHEXIDINE 0.12% (ORAL KIT) 15 ML CUP MT SCH ×2 (08:03→20:36)
[2018-01-31] MEDS: DOCUSATE SODIUM 50 MG/SENNA 8.6 MG TAB PO SCH ×2 (08:04→20:35)
[2018-01-31] MEDS: PANTOPRAZOLE SODIUM 40 MG VIAL IV PUSH SCH (08:04)
[2018-01-31] MEDS: MAGNESIUM HYDROXIDE SUSP 30 ML CUP PO SCH ×2 (08:04→20:35)
[2018-01-31] MEDS: LACTULOSE SYRUP 20 GM/30 ML CUP PO SCH (08:04)
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
[2018-01-31] MEDS: CEFEPIME INJ 1,000 MG in SODIUM CHLORIDE 0.9% INJ 100 ML IV SCH (13:47)
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
[2018-02-01] VITALS (19 sets, daily range): BP systolic 144–152; BP diastolic 62–69; PULSE 89–111; RESP 20–24; TEMP 100.1–101.5; O2SAT 93–96
[2018-02-01] MEDS: SODIUM CHLOR 0.9% 1000 ML INJ 1,000 ML OTHER SCH ×12 (01:00→23:00)
[2018-02-01] MEDS: PROPOFOL 1000 MG/100 ML IV PRN ×3 (01:26→18:15)
[2018-02-01] MEDS: RESP: ALBUTEROL 2.5 MG/IPRATROPIUM 0.5 MG NEB (SCH) NEB ×2 (03:48→07:40)
[2018-02-01] MEDS: CHLORHEXIDINE GLUCONATE 2 % 1 PACK (2 CLOTHS) TOP SCH (04:17)
[2018-02-01] MEDS: fentaNYL DRIP 250 ML IV PRN ×2 (04:36→14:27)
[2018-02-01 05:47] LABS: AUTOMATED NEUTROPHIL # 10.9 TH/MM3 (1.8-7.7); BASOPHIL % 0.2 % (0.0-2.0); EOSINOPHIL # 0.3 TH/MM3 (0-0.4); EOSINOPHIL % 2.6 % (0.0-4.0); HEMATOCRIT 22.9 % (35.0-46.0); HEMOGLOBIN 7.9 GM/DL (11.6-15.3); LYMPH % 7.1 % (9.0-44.0); LYMPHOCYTE # 0.9 TH/MM3 (1.0-4.8); MEAN CELL VOLUME 89.6 FL (80.0-100.0); MEAN CORPUSCULAR HEMOGLOBIN 30.8 PG (27.0-34.0); MEAN CORPUSCULAR HGB CONC 34.3 % (32.0-36.0); MEAN PLATELET VOLUME 8.5 FL (7.0-11.0); MONO % 6.7 % (0.0-8.0); MONOCYTE # 0.9 TH/MM3 (0-0.9); NEUT % 83.4 % (16.0-70.0); PLATELET COUNT 283 TH/MM3 (150-450); RED BLOOD COUNT 2.55 MIL/MM3 (4.00-5.30); RED CELL DISTRIBUTION WIDTH 15.7 % (11.6-17.2)
[2018-02-01 06:06] LABS: ALBUMIN 1.4 GM/DL (3.4-5.0); AST (GOT) 42 U/L (15-37); BICARBONATE 26.6 MEQ/L (21.0-32.0); BLOOD UREA NITROGEN 35 MG/DL (7-18); CALCIUM 8.1 MG/DL (8.5-10.1); CHLORIDE 101 MEQ/L (98-107); CREATININE 4.03 MG/DL (0.50-1.00); GLOMERULAR FILTRATION RATE 10 ML/MIN (>89); GLUCOSE,RANDOM 97 MG/DL (74-106); SODIUM (NA) 141 MEQ/L (136-145)
[2018-02-01 06:10] LABS: ALKALINE PHOSPHATASE 111 U/L (45-117); ALT (GPT) 6 U/L (10-53); TOTAL BILIRUBIN ADULT 0.6 MG/DL (0.2-1.0); TOTAL PROTEIN 5.2 GM/DL (6.4-8.2)
[2018-02-01] MEDS: HEPARIN SODIUM - SQ 10,000 UNITS/ML VIAL SQ SCH ×3 (06:24→20:41)
--- NOTE | 2018-02-01 06:40 | RADRPT ---
EXAM DATE/TIME: 02/01/2018 05:30 [place] COMPARISON: CHEST SINGLE AP, January 31, 2018, 5:33. INDICATIONS : Short of breath. MEDICAL HISTORY : None. SURGICAL HISTORY : None. ENCOUNTER: Subsequent ACUITY: 1 week PAIN SCORE: Non-responsive. LOCATION: Bilateral chest FINDINGS: A single view of the chest demonstrates bibasilar airspace disease. Endotracheal tube, nasogastric tu be MRI chest tube stable in position. No definite pneumothorax. Left subclavian central line also sta ble position. The cardiomediastinal contours are unremarkable. Osseous structures are intact. CONCLUSION: Minimal improvement in bibasilar airspace disease. Mark Olivares MD on February 01, 2018 at 6:36 Board Certified Radiologist. This report was verified electronically.
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
[2018-02-01] MEDS: DOCUSATE SODIUM 50 MG/SENNA 8.6 MG TAB PO SCH ×2 (08:14→20:41)
[2018-02-01] MEDS: LACTULOSE SYRUP 20 GM/30 ML CUP PO SCH (08:14)
[2018-02-01] MEDS: MAGNESIUM HYDROXIDE SUSP 30 ML CUP PO SCH ×2 (08:14→20:41)
[2018-02-01] MEDS: PANTOPRAZOLE SODIUM 40 MG VIAL IV PUSH SCH (08:14)
[2018-02-01] MEDS: CHLORHEXIDINE 0.12% (ORAL KIT) 15 ML CUP MT SCH ×2 (08:15→20:56)
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
[2018-02-01] MEDS: CEFEPIME INJ 1,000 MG in SODIUM CHLORIDE 0.9% INJ 100 ML IV SCH (12:39)
[2018-02-01] MEDS: MORPHINE SULFATE ORAL SOLN 10 MG/0.5 ML SYRINGE PO SCH ×4 (12:39→23:59)
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
[2018-02-01] MEDS: diphenhydrAMINE HCL 25 MG CAP PO PRN (15:37)
[2018-02-01] MEDS ORDERED: PHARMACY INFORMATION XX PRN (15:45)
[2018-02-01] MEDS ORDERED: ASP: Other exception documentation: ( ) PRN ×2 (15:45)
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
[2018-02-01] MEDS: MEROPENEM INJ 500 MG in SODIUM CHLORIDE 0.9% INJ 100 ML IV SCH ×2 (16:00→23:58)
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
[2018-02-01] MEDS ORDERED: POTASSIUM CHLORIDE 25 MEQ EFFERVESCENT TAB NG ONE (16:15)
[2018-02-01] MEDS: LINEZOLID 600 MG PREMIX 300 ML IV SCH (18:16)
[2018-02-01] MEDS: FUROSEMIDE 40 MG/4 ML VIAL IV PUSH SCH (20:40)
[2018-02-02] VITALS (18 sets, daily range): BP systolic 110–158; BP diastolic 47–70; PULSE 81–105; RESP 20–25; TEMP 100–101.6; O2SAT 92–100
[2018-02-02] MEDS: ACETAMINOPHEN 650 MG/20.3 ML UDC PO PRN ×3 (00:01→23:54)
[2018-02-02] MEDS: fentaNYL DRIP 250 ML IV PRN ×3 (00:02→13:25)
[2018-02-02] MEDS: SODIUM CHLOR 0.9% 1000 ML INJ 1,000 ML OTHER SCH ×3 (01:00→05:00)
[2018-02-02] MEDS: MORPHINE SULFATE ORAL SOLN 10 MG/0.5 ML SYRINGE PO SCH ×2 (03:58→06:29)
[2018-02-02] MEDS: LINEZOLID 600 MG PREMIX 300 ML IV SCH ×2 (03:58→17:37)
[2018-02-02] MEDS: CHLORHEXIDINE GLUCONATE 2 % 1 PACK (2 CLOTHS) TOP SCH (04:00)
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
[2018-02-02 05:36] LABS: AUTOMATED NEUTROPHIL # 9.2 TH/MM3 (1.8-7.7); BASOPHIL % 0.3 % (0.0-2.0); EOSINOPHIL # 0.5 TH/MM3 (0-0.4); EOSINOPHIL % 4.3 % (0.0-4.0); HEMATOCRIT 22.3 % (35.0-46.0); HEMOGLOBIN 7.5 GM/DL (11.6-15.3); LYMPH % 7.7 % (9.0-44.0); LYMPHOCYTE # 0.9 TH/MM3 (1.0-4.8); MEAN CELL VOLUME 89.6 FL (80.0-100.0); MEAN CORPUSCULAR HEMOGLOBIN 30.3 PG (27.0-34.0); MEAN CORPUSCULAR HGB CONC 33.8 % (32.0-36.0); MEAN PLATELET VOLUME 8.8 FL (7.0-11.0); MONOCYTE # 0.8 TH/MM3 (0-0.9); NEUT % 80.7 % (16.0-70.0); PLATELET COUNT 320 TH/MM3 (150-450); RED BLOOD COUNT 2.49 MIL/MM3 (4.00-5.30); RED CELL DISTRIBUTION WIDTH 15.6 % (11.6-17.2); WHITE BLOOD COUNT 11.5 TH/MM3 (4.0-11.0)
[2018-02-02 06:27] LABS: ALBUMIN 1.4 GM/DL (3.4-5.0); ALKALINE PHOSPHATASE 106 U/L (45-117); ALT (GPT) 14 U/L (10-53); AST (GOT) 50 U/L (15-37); BLOOD UREA NITROGEN 48 MG/DL (7-18); CALCIUM 8.3 MG/DL (8.5-10.1); CHLORIDE 101 MEQ/L (98-107); CREATININE 5.27 MG/DL (0.50-1.00); GLOMERULAR FILTRATION RATE 7 ML/MIN (>89); GLUCOSE,RANDOM 124 MG/DL (74-106); SODIUM (NA) 139 MEQ/L (136-145); TOTAL BILIRUBIN ADULT 0.5 MG/DL (0.2-1.0); TOTAL PROTEIN 5.1 GM/DL (6.4-8.2)
[2018-02-02] MEDS: HEPARIN SODIUM - SQ 10,000 UNITS/ML VIAL SQ SCH ×3 (06:30→21:04)
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
[2018-02-02] MEDS: DOCUSATE SODIUM 50 MG/SENNA 8.6 MG TAB PO SCH ×2 (07:56→21:04)
[2018-02-02] MEDS: MAGNESIUM HYDROXIDE SUSP 30 ML CUP PO SCH ×2 (07:56→21:03)
[2018-02-02] MEDS: MEROPENEM INJ 500 MG in SODIUM CHLORIDE 0.9% INJ 100 ML IV SCH ×3 (07:56→23:31)
[2018-02-02] MEDS: PANTOPRAZOLE SODIUM 40 MG VIAL IV PUSH SCH (07:56)
[2018-02-02] MEDS: CHLORHEXIDINE 0.12% (ORAL KIT) 15 ML CUP MT SCH ×2 (07:57→20:30)
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
[2018-02-02] MEDS: FUROSEMIDE 40 MG/4 ML VIAL IV PUSH SCH ×2 (10:16→21:03)
[2018-02-02] MEDS: oxyCODONE HCL ORAL CONC 5 MG/0.25 ML SYRINGE PO SCH ×4 (10:16→21:03)
[2018-02-02] MEDS: LACTULOSE SYRUP 20 GM/30 ML CUP PO SCH (10:22)
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
[2018-02-02] MEDS: PROPOFOL 1000 MG/100 ML IV PRN (12:42)
[2018-02-02] MEDS: GENTAMICIN SULFATE 20 MG/2 ML VIAL OTHER PRN (17:13)
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
[2018-02-03] VITALS (18 sets, daily range): BP systolic 122–141; BP diastolic 49–60; PULSE 80–98; RESP 18–20; TEMP 99.2–101.1; O2SAT 95–99
[2018-02-03] MEDS: PROPOFOL 1000 MG/100 ML IV PRN ×3 (00:26→18:14)
[2018-02-03] MEDS: oxyCODONE HCL ORAL CONC 5 MG/0.25 ML SYRINGE PO SCH ×6 (02:04→20:24)
[2018-02-03] MEDS: fentaNYL DRIP 250 ML IV PRN ×2 (02:08→16:35)
[2018-02-03] MEDS: ACETAMINOPHEN 650 MG/20.3 ML UDC PO PRN (03:06)
[2018-02-03] MEDS: LINEZOLID 600 MG PREMIX 300 ML IV SCH ×2 (03:06→16:34)
[2018-02-03] MEDS: CHLORHEXIDINE GLUCONATE 2 % 1 PACK (2 CLOTHS) TOP SCH (03:06)
[2018-02-03 03:33] LABS: AUTOMATED NEUTROPHIL # 11.8 TH/MM3 (1.8-7.7); BASOPHIL # 0.1 TH/MM3 (0-0.2); BASOPHIL % 0.6 % (0.0-2.0); EOSINOPHIL # 0.5 TH/MM3 (0-0.4); EOSINOPHIL % 3.7 % (0.0-4.0); HEMATOCRIT 22.7 % (35.0-46.0); HEMOGLOBIN 7.6 GM/DL (11.6-15.3); LYMPH % 5.6 % (9.0-44.0); LYMPHOCYTE # 0.8 TH/MM3 (1.0-4.8); MEAN CELL VOLUME 88.5 FL (80.0-100.0); MEAN CORPUSCULAR HEMOGLOBIN 29.6 PG (27.0-34.0); MEAN CORPUSCULAR HGB CONC 33.5 % (32.0-36.0); MEAN PLATELET VOLUME 8.7 FL (7.0-11.0); MONO % 5.6 % (0.0-8.0); MONOCYTE # 0.8 TH/MM3 (0-0.9); NEUT % 84.5 % (16.0-70.0); PLATELET COUNT 349 TH/MM3 (150-450); RED BLOOD COUNT 2.56 MIL/MM3 (4.00-5.30); WHITE BLOOD COUNT 13.9 TH/MM3 (4.0-11.0)
[2018-02-03 04:28] LABS: BANDS 8 % (0-6); LYMPHOCYTES 10 % (9-44); METAMYELOCYTES 1 % (0-1); MONOCYTES 1 % (0-8); NEUTROPHIL # MANUAL DIFF 12.1 TH/MM3 (1.8-7.7); POLYS (SEG NEUTROPHILS) 78 % (16-70)
[2018-02-03 04:29] LABS: DOHLE BODIES PRESENT (NONE SEEN)
[2018-02-03 04:30] LABS: TOXIC GRANULATION 1+ (NORMAL)
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
[2018-02-03 04:51] LABS: ALBUMIN 1.4 GM/DL (3.4-5.0); ALKALINE PHOSPHATASE 116 U/L (45-117); ALT (GPT) 16 U/L (10-53); AST (GOT) 48 U/L (15-37); BICARBONATE 30.5 MEQ/L (21.0-32.0); BLOOD UREA NITROGEN 40 MG/DL (7-18); CHLORIDE 101 MEQ/L (98-107); CREATININE 4.27 MG/DL (0.50-1.00); GLOMERULAR FILTRATION RATE 9 ML/MIN (>89); GLUCOSE,RANDOM 126 MG/DL (74-106); SODIUM (NA) 140 MEQ/L (136-145); TOTAL BILIRUBIN ADULT 0.5 MG/DL (0.2-1.0); TOTAL PROTEIN 5.3 GM/DL (6.4-8.2)
[2018-02-03] MEDS: HEPARIN SODIUM - SQ 10,000 UNITS/ML VIAL SQ SCH ×3 (06:00→20:24)
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
[2018-02-03] MEDS: CHLORHEXIDINE 0.12% (ORAL KIT) 15 ML CUP MT SCH ×2 (08:00→20:24)
[2018-02-03] MEDS: FUROSEMIDE 40 MG/4 ML VIAL IV PUSH SCH ×2 (08:36→20:23)
[2018-02-03] MEDS: LACTULOSE SYRUP 20 GM/30 ML CUP PO SCH (08:36)
[2018-02-03] MEDS: MEROPENEM INJ 500 MG in SODIUM CHLORIDE 0.9% INJ 100 ML IV SCH ×2 (08:36→16:34)
[2018-02-03] MEDS: MAGNESIUM HYDROXIDE SUSP 30 ML CUP PO SCH ×2 (08:36→20:24)
[2018-02-03] MEDS: DOCUSATE SODIUM 50 MG/SENNA 8.6 MG TAB PO SCH ×2 (08:37→20:24)
[2018-02-03] MEDS: PANTOPRAZOLE SODIUM 40 MG VIAL IV PUSH SCH (08:37)
[2018-02-03] MEDS: GENTAMICIN SULFATE 20 MG/2 ML VIAL OTHER PRN (13:45)
[2018-02-03] MEDS: HEPARIN SODIUM - IV 10,000 UNITS/10 ML VIAL PRN (13:45)
[2018-02-03] MEDS: SODIUM CHLOR 0.9% 1000 ML INJ 1,000 ML OTHER PRN (13:46)
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
[2018-02-03] MEDS ORDERED: EPOETIN ALFA 10,000 UNITS/ML VIAL SQ ONE (15:00)
[2018-02-04] VITALS (18 sets, daily range): BP systolic 121–140; BP diastolic 57–63; PULSE 68–97; RESP 18–23; TEMP 98.7–100.1; O2SAT 97–100
[2018-02-04] MEDS: MEROPENEM INJ 500 MG in SODIUM CHLORIDE 0.9% INJ 100 ML IV SCH ×3 (00:29→15:36)
[2018-02-04] MEDS: oxyCODONE HCL ORAL CONC 5 MG/0.25 ML SYRINGE PO SCH ×6 (02:15→21:42)
[2018-02-04] MEDS: CHLORHEXIDINE GLUCONATE 2 % 1 PACK (2 CLOTHS) TOP SCH (04:00)
[2018-02-04] MEDS: LINEZOLID 600 MG PREMIX 300 ML IV SCH ×2 (04:57→15:37)
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
[2018-02-04 05:23] LABS: AUTOMATED NEUTROPHIL # 8.2 TH/MM3 (1.8-7.7); BASOPHIL % 0.4 % (0.0-2.0); EOSINOPHIL # 0.7 TH/MM3 (0-0.4); EOSINOPHIL % 6.4 % (0.0-4.0); HEMATOCRIT 21.8 % (35.0-46.0); HEMOGLOBIN 7.4 GM/DL (11.6-15.3); LYMPH % 7.6 % (9.0-44.0); LYMPHOCYTE # 0.8 TH/MM3 (1.0-4.8); MEAN CELL VOLUME 90.1 FL (80.0-100.0); MEAN CORPUSCULAR HEMOGLOBIN 30.5 PG (27.0-34.0); MEAN CORPUSCULAR HGB CONC 33.9 % (32.0-36.0); MEAN PLATELET VOLUME 9.2 FL (7.0-11.0); MONO % 6.5 % (0.0-8.0); MONOCYTE # 0.7 TH/MM3 (0-0.9); NEUT % 79.1 % (16.0-70.0); PLATELET COUNT 380 TH/MM3 (150-450); RED BLOOD COUNT 2.42 MIL/MM3 (4.00-5.30); RED CELL DISTRIBUTION WIDTH 15.6 % (11.6-17.2); WHITE BLOOD COUNT 10.4 TH/MM3 (4.0-11.0)
[2018-02-04 05:46] LABS: ALBUMIN 1.4 GM/DL (3.4-5.0); AST (GOT) 38 U/L (15-37); BICARBONATE 30.7 MEQ/L (21.0-32.0); BLOOD UREA NITROGEN 38 MG/DL (7-18); CALCIUM 8.3 MG/DL (8.5-10.1); CHLORIDE 101 MEQ/L (98-107); CREATININE 3.94 MG/DL (0.50-1.00); GLOMERULAR FILTRATION RATE 10 ML/MIN (>89); GLUCOSE,RANDOM 112 MG/DL (74-106); SODIUM (NA) 141 MEQ/L (136-145)
[2018-02-04 05:48] LABS: ALT (GPT) 10 U/L (10-53)
[2018-02-04 05:50] LABS: ALKALINE PHOSPHATASE 117 U/L (45-117); TOTAL BILIRUBIN ADULT 0.5 MG/DL (0.2-1.0); TOTAL PROTEIN 5.5 GM/DL (6.4-8.2)
[2018-02-04] MEDS: HEPARIN SODIUM - SQ 10,000 UNITS/ML VIAL SQ SCH ×3 (06:15→21:41)
[2018-02-04] MEDS: PANTOPRAZOLE SODIUM 40 MG VIAL IV PUSH SCH (07:31)
[2018-02-04] MEDS: LACTULOSE SYRUP 20 GM/30 ML CUP PO SCH (07:31)
[2018-02-04] MEDS: MAGNESIUM HYDROXIDE SUSP 30 ML CUP PO SCH ×2 (07:31→21:41)
[2018-02-04] MEDS: FUROSEMIDE 40 MG/4 ML VIAL IV PUSH SCH ×2 (07:32→21:41)
[2018-02-04] MEDS: DOCUSATE SODIUM 50 MG/SENNA 8.6 MG TAB PO SCH ×2 (07:34→21:42)
[2018-02-04] MEDS: CHLORHEXIDINE 0.12% (ORAL KIT) 15 ML CUP MT SCH ×2 (07:34→20:06)
--- NOTE | 2018-02-04 08:21 | PD.ORT.PN ---
Subjective Subjective Remarks Intubated, stable Objective Vitals Vital Signs Date Time Temp Pulse Resp B/P (MAP) Pulse Ox O2 Delivery O2 Flow Rate FiO2 02/04/18 08:00 35 02/04/18 08:00 100.0 87 23 140/63 (88) 100 02/04/18 08:00 87 02/04/18 07:34 20 02/04/18 06:00 80 02/04/18 04:06 99 35 02/04/18 04:00 98.8 72 18 121/57 (78) 99 02/04/18 04:00 72 02/04/18 04:00 35 02/04/18 02:00 93 02/04/18 01:17 97 35 02/04/18 00:00 87 02/04/18 00:00 99.6 97 18 137/61 (86) 98 02/04/18 00:00 35 02/03/18 22:00 90 02/03/18 21:17 96 35 02/03/18 20:00 87 02/03/18 20:00 35 02/03/18 20:00 99.2 87 18 125/49 (74) 97 02/03/18 18:00 91 02/03/18 17:01 99 35 02/03/18 16:00 83 02/03/18 16:00 100.0 98 20 141/58 (85) 98 02/03/18 16:00 35 02/03/18 14:00 90 02/03/18 12:00 35 02/03/18 12:00 100.0 92 18 132/60 (84) 98 02/03/18 12:00 92 02/03/18 11:50 99 35 02/03/18 10:00 89 02/03/18 09:38 99 35 I/O 02/03/18 02/03/18 02/03/18 02/04/18 02/04/18 02/04/18 07:00 15:00 23:00 07:00 15:00 23:00 Intake Total 870 ml 400 ml 673 ml 1436 ml Output Total 15 ml 5010 ml 130 ml Balance 855 ml 400 ml -4337 ml 1306 ml Intake IV Total 200 ml 400 ml 900 ml Tube Feeding 550 ml 543 ml 536 ml Other 120 ml 130 ml Output Urine Total 10 ml 10 ml 20 ml Stool Total 900 ml 0 ml Gastric Drainage Total 0 ml 0 ml Chest Tube Drainage Total 5 ml 100 ml 110 ml Hemodialysis 4000 ml Result Diagram: 02/04/1851002/04/18510 Imaging Last 24 hours Impressions Thoracic Spine CT 01/22/18337 Signed Impressions: Service Date/Time: Monday, January 22, 2018 04:05 - CONCLUSION: Nondisplaced right transverse process fracture of T1. Mickey Kline MD Pelvis X-Ray 01/22/18337 Signed Impressions: Service Date/Time: Monday, January 22, 2018 03:26 - CONCLUSION: Comminuted and medially displaced fracture of the right acetabulum. Also a minimally displaced fracture of the left pubic bone. Mickey Kline MD Lumbar Spine CT 01/22/18337 Signed Impressions: Service Date/Time: Monday, January 22, 2018 04:05 - CONCLUSION: Intact lumbar spine. Mickey Kline MD Head CT 01/22/18337 Signed Impressions: Service Date/Time: Monday, January 22, 2018 03:59 - CONCLUSION: No bleed or other acute intracranial abnormality. Mickey Kline MD Chest X-Ray 01/22/18337 Signed Impressions: Service Date/Time: Monday, January 22, 2018 03:26 - CONCLUSION: 1. Small bilateral pneumothoraces. 2. Right rib fractures. 3. Nasogastric tube doubled back on itself within the esophagus. 4. Appropriate position of the endotracheal tube. Mickey Kline MD Chest CT 01/22/18337 Signed Impressions: Service Date/Time: Monday, January 22, 2018 04:05 - CONCLUSION: 1. Tiny left pneumothorax. Chest tube in place. 2. Small right pneumothorax and a right lower lobe pulmonary contusion and a tiny right hemothorax. 3. Nondisplaced fractures posteriorly and laterally of the right second and third ribs. Mickey Kline MD Cervical Spine CT 01/22/188 Signed Impressions: Service Date/Time: Monday, January 22, 2018 03:59 - CONCLUSION: Intact cervical spine. Mickey Kline MD Abdomen/Pelvis CT 01/22/188 Signed Impressions: Service Date/Time: Monday, January 22, 2018 04:05 - CONCLUSION: 1. Low-grade subcapsular lacerations of the liver down without active bleeding. 2. Comminuted laceration of the spleen with a small hematoma. No active bleeding demonstrated. 3. Comminuted and displaced fracturing of the right acetabulum with a large pelvic hematoma and a focus of slow, active bleeding. 4. Minimally displaced fracture of the right side of the sacrum. 5. Nondisplaced fracture of the left pubic bone. Mickey Kline MD Tibia/Fibula X-Ray 01/22/18 0000 Signed Impressions: Service Date/Time: Monday, January 22, 2018 03:26 - CONCLUSION: Comminuted lateral tibial plateau fracture and minimally displaced fractures of the proximal and distal fibula. Mickey Kline MD Tibia/Fibula X-Ray 01/22/18 0000 Signed Impressions: Service Date/Time: Monday, January 22, 2018 03:26 - CONCLUSION: Grossly intact right tibia and fibula. Mickey Kline MD Radius/Ulna X-Ray 01/22/18 0000 Signed Impressions: Service Date/Time: Monday, January 22, 2018 03:26 - CONCLUSION: Comminuted and mildly displaced proximal shaft fracture of the ulna. Mickey Kline MD Femur X-Ray 01/22/18 0000 Signed Impressions: Service Date/Time: Monday, January 22, 2018 03:26 - CONCLUSION: Femur is grossly intact. Mickey Kline MD Objective Remarks RLE: +skeletal traction. good cap refill. compartments soft LLE: open wound on anterior tibia. compartments soft. good cap refill. +splint LUE: +splint. good cap refill Assessment & Plan Assessment and Plan 1) Right Acetabulum fx with femoral head dislocation s/p reduction and application of skeletal traction 2) Multiple Pelvis Fxs 3) Left Open Tibial tubercle and proximal tibia Fx s/p I&D and wound closure 4) Left Ulna Fx s/p ORIF - POD 12 (01/23/18) 5) Left Ankle Fx s/p ORIF - POD 12 (01/23/18) 6) Right Patella Fx 7) Left PCL rupture -maintain skeletal traction with 20lbs of traction to right hip -maintain short leg splint on left and knee brace on left -patient will need to be placed prone for 2-3 hours in order to proceed with surgery -trauma team gave clearance to proceed with pelvic surgery. plan to proceed monday. -will fill out consents and place on chart Maverick Pompa Jr. Feb 04, 2018 08:21
[2018-02-04] MEDS: PROPOFOL 1000 MG/100 ML IV PRN ×4 (08:27→21:42)
[2018-02-04] MEDS: fentaNYL DRIP 250 ML IV PRN (08:28)
[2018-02-04] MEDS: DEXMEDETOMIDINE INJ 200 MCG in SODIUM CHLORIDE 0.9% INJ 50 ML IV PRN ×3 (10:17→21:04)
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
[2018-02-05] VITALS (22 sets, daily range): BP systolic 123–146; BP diastolic 60–68; PULSE 66–92; RESP 18–24; TEMP 99.7–101.8; O2SAT 96–100
[2018-02-05] MEDS: fentaNYL DRIP 250 ML IV PRN (00:02)
[2018-02-05] MEDS: MEROPENEM INJ 500 MG in SODIUM CHLORIDE 0.9% INJ 100 ML IV SCH ×2 (00:03→08:13)
[2018-02-05] MEDS: DEXMEDETOMIDINE INJ 200 MCG in SODIUM CHLORIDE 0.9% INJ 50 ML IV PRN ×3 (00:03→08:16)
[2018-02-05] MEDS: oxyCODONE HCL ORAL CONC 5 MG/0.25 ML SYRINGE PO SCH ×6 (02:23→21:48)
[2018-02-05] MEDS: CHLORHEXIDINE GLUCONATE 2 % 1 PACK (2 CLOTHS) TOP SCH ×2 (03:32→23:02)
[2018-02-05] MEDS: PROPOFOL 1000 MG/100 ML IV PRN (03:42)
[2018-02-05] MEDS: LINEZOLID 600 MG PREMIX 300 ML IV SCH ×2 (05:09→17:07)
[2018-02-05] MEDS: HEPARIN SODIUM - SQ 10,000 UNITS/ML VIAL SQ SCH (05:10)
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
[2018-02-05] MEDS: ACETAMINOPHEN 325 MG TAB PO PRN (06:11)
[2018-02-05 06:47] LABS: AUTOMATED NEUTROPHIL # 7.5 TH/MM3 (1.8-7.7); BASOPHIL # 0.1 TH/MM3 (0-0.2); BASOPHIL % 0.9 % (0.0-2.0); EOSINOPHIL # 0.9 TH/MM3 (0-0.4); HEMATOCRIT 22.6 % (35.0-46.0); HEMOGLOBIN 7.7 GM/DL (11.6-15.3); LYMPH % 9.7 % (9.0-44.0); MEAN CELL VOLUME 90.2 FL (80.0-100.0); MEAN CORPUSCULAR HEMOGLOBIN 30.7 PG (27.0-34.0); MEAN PLATELET VOLUME 9.5 FL (7.0-11.0); MONO % 5.3 % (0.0-8.0); MONOCYTE # 0.5 TH/MM3 (0-0.9); NEUT % 75.1 % (16.0-70.0); PLATELET COUNT 431 TH/MM3 (150-450); RED BLOOD COUNT 2.51 MIL/MM3 (4.00-5.30); RED CELL DISTRIBUTION WIDTH 16.3 % (11.6-17.2)
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
[2018-02-05] MEDS ORDERED: SODIUM CHLOR 0.9% 250 ML INJ 250 ML IV ONE (07:15)
[2018-02-05 07:22] LABS: ALBUMIN 1.5 GM/DL (3.4-5.0); ALKALINE PHOSPHATASE 115 U/L (45-117); ALT (GPT) 12 U/L (10-53); AST (GOT) 49 U/L (15-37); BLOOD UREA NITROGEN 53 MG/DL (7-18); CALCIUM 8.5 MG/DL (8.5-10.1); CHLORIDE 100 MEQ/L (98-107); CREATININE 5.45 MG/DL (0.50-1.00); GLOMERULAR FILTRATION RATE 7 ML/MIN (>89); GLUCOSE,RANDOM 122 MG/DL (74-106); SODIUM (NA) 139 MEQ/L (136-145); TOTAL BILIRUBIN ADULT 0.5 MG/DL (0.2-1.0); TOTAL PROTEIN 5.6 GM/DL (6.4-8.2)
[2018-02-05 07:37] LABS: BANDS 4 % (0-6); BASOPHILS 1 % (0-2); CORRECTED NUCLEATED RBC 1 /100 WBC (0-0); LYMPHOCYTES 9 % (9-44); METAMYELOCYTES 1 % (0-1); MONOCYTES 4 % (0-8); MYELOCYTES 3 % (0-0); NEUTROPHIL # MANUAL DIFF 7.8 TH/MM3 (1.8-7.7); NUCLEATED RED BLOOD CELL 1 (0-0); POLYS (SEG NEUTROPHILS) 69 % (16-70); PROMYELOCYTES 1 % (0-0)
[2018-02-05] MEDS: PANTOPRAZOLE SODIUM 40 MG VIAL IV PUSH SCH (08:14)
[2018-02-05] MEDS: LACTULOSE SYRUP 20 GM/30 ML CUP PO SCH (08:14)
[2018-02-05] MEDS: FUROSEMIDE 40 MG/4 ML VIAL IV PUSH SCH ×2 (08:14→21:46)
[2018-02-05] MEDS: MAGNESIUM HYDROXIDE SUSP 30 ML CUP PO SCH ×2 (08:14→21:46)
[2018-02-05] MEDS: DOCUSATE SODIUM 50 MG/SENNA 8.6 MG TAB PO SCH ×2 (08:14→21:47)
[2018-02-05] MEDS: CHLORHEXIDINE 0.12% (ORAL KIT) 15 ML CUP MT SCH ×2 (08:15→20:00)
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
[2018-02-05] MEDS: ACETAMINOPHEN 650 MG/20.3 ML UDC PO PRN (10:17)
[2018-02-05] MEDS: QUEtiapine FUMARATE 25 MG TAB PO SCH ×2 (10:17→21:47)
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
[2018-02-05] MEDS ORDERED: MIDAZOLAM HCL 5 MG/5 ML VIAL IV PUSH ONE (12:00)
[2018-02-05] MEDS ORDERED: MICAFUNGIN INJ 150 MG in SODIUM CHLORIDE 0.9% INJ 100 ML IV ONE ×2 (12:00→13:30)
[2018-02-05] MEDS: HEPARIN SODIUM - IV 10,000 UNITS/10 ML VIAL PRN (12:59)
[2018-02-05] MEDS: GENTAMICIN SULFATE 20 MG/2 ML VIAL OTHER PRN (13:00)
[2018-02-05] MEDS: metroNIDAZOLE 500 MG TAB PO SCH ×2 (14:31→21:47)
[2018-02-05] MEDS: MIDAZOLAM 100 MG/NS 100 ML DRIP Premix IV PRN (17:08)
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
[2018-02-05 19:26] LABS: HEMATOCRIT 25.1 % (35.0-46.0); HEMOGLOBIN 9.1 GM/DL (11.6-15.3)
[2018-02-06] VITALS (14 sets, daily range): BP systolic 119–145; BP diastolic 54–77; PULSE 75–86; RESP 16–22; TEMP 98.6–101.6; O2SAT 96–100
[2018-02-06] MEDS: oxyCODONE HCL ORAL CONC 5 MG/0.25 ML SYRINGE PO SCH ×6 (02:00→22:23)
[2018-02-06] MEDS: LINEZOLID 600 MG PREMIX 300 ML IV SCH ×2 (04:00→16:43)
[2018-02-06] MEDS: metroNIDAZOLE 500 MG TAB PO SCH ×3 (04:27→22:22)
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
[2018-02-06 06:11] LABS: AUTOMATED NEUTROPHIL # 6.4 TH/MM3 (1.8-7.7); BASOPHIL % 0.4 % (0.0-2.0); EOSINOPHIL % 10.8 % (0.0-4.0); HEMATOCRIT 24.9 % (35.0-46.0); HEMOGLOBIN 8.6 GM/DL (11.6-15.3); LYMPH % 13.9 % (9.0-44.0); LYMPHOCYTE # 1.3 TH/MM3 (1.0-4.8); MEAN CELL VOLUME 89.9 FL (80.0-100.0); MEAN CORPUSCULAR HEMOGLOBIN 31.2 PG (27.0-34.0); MEAN CORPUSCULAR HGB CONC 34.7 % (32.0-36.0); MONO % 5.3 % (0.0-8.0); MONOCYTE # 0.5 TH/MM3 (0-0.9); NEUT % 69.6 % (16.0-70.0); PLATELET COUNT 406 TH/MM3 (150-450); RED BLOOD COUNT 2.77 MIL/MM3 (4.00-5.30); RED CELL DISTRIBUTION WIDTH 16.2 % (11.6-17.2); WHITE BLOOD COUNT 9.1 TH/MM3 (4.0-11.0)
[2018-02-06 06:42] LABS: ALBUMIN 1.5 GM/DL (3.4-5.0); ALKALINE PHOSPHATASE 113 U/L (45-117); ALT (GPT) 12 U/L (10-53); AST (GOT) 57 U/L (15-37); BICARBONATE 31.7 MEQ/L (21.0-32.0); BLOOD UREA NITROGEN 41 MG/DL (7-18); CALCIUM 8.1 MG/DL (8.5-10.1); CHLORIDE 102 MEQ/L (98-107); CREATININE 4.91 MG/DL (0.50-1.00); GLOMERULAR FILTRATION RATE 8 ML/MIN (>89); GLUCOSE,RANDOM 95 MG/DL (74-106); SODIUM (NA) 141 MEQ/L (136-145); TOTAL BILIRUBIN ADULT 0.6 MG/DL (0.2-1.0); TOTAL PROTEIN 5.5 GM/DL (6.4-8.2)
[2018-02-06] MEDS: PROPOFOL 1000 MG/100 ML IV PRN ×2 (07:00→16:43)
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
[2018-02-06] MEDS ORDERED: SODIUM CHLOR 0.9% 250 ML INJ 250 ML IV ONE (07:15)
[2018-02-06] MEDS ORDERED: VANCOMYCIN HCL 1000 MG VIAL ONE ×2 (08:15→14:09)
[2018-02-06] MEDS: ceFAZolin INJ 1,000 MG VIAL ONE ×2 (08:15→12:15)
[2018-02-06] MEDS: GENTAMICIN SULFATE 80 MG/2 ML VIAL ONE ×2 (08:15→12:26)
[2018-02-06] MEDS: HEPARIN SODIUM - SQ 10,000 UNITS/ML VIAL ONE ×2 (08:15→12:26)
[2018-02-06] MEDS: BACITRACIN TOP OINT 15 GM TUBE ONE (08:16)
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
[2018-02-06 08:37] LABS: BANDS 9 % (0-6); CORRECTED NUCLEATED RBC 1 /100 WBC (0-0); LYMPHOCYTES 11 % (9-44); METAMYELOCYTES 2 % (0-1); MONOCYTES 7 % (0-8); NEUTROPHIL # MANUAL DIFF 6.8 TH/MM3 (1.8-7.7); NUCLEATED RED BLOOD CELL 1 (0-0); POLYS (SEG NEUTROPHILS) 64 % (16-70)
[2018-02-06] MEDS: CHLORHEXIDINE 0.12% (ORAL KIT) 15 ML CUP MT SCH ×2 (08:47→20:00)
[2018-02-06] MEDS: MEROPENEM INJ 500 MG in SODIUM CHLORIDE 0.9% INJ 100 ML IV SCH (08:47)
[2018-02-06] MEDS: LACTULOSE SYRUP 20 GM/30 ML CUP PO SCH (08:47)
[2018-02-06] MEDS: FUROSEMIDE 40 MG/4 ML VIAL IV PUSH SCH ×2 (08:47→20:01)
[2018-02-06] MEDS: SODIUM CHLORIDE 0.9% FLUSH 10 ML FLUSH IV FLUSH PRN ×2 (08:47→20:02)
[2018-02-06] MEDS: MAGNESIUM HYDROXIDE SUSP 30 ML CUP PO SCH ×2 (08:48→19:57)
[2018-02-06] MEDS: ACETAMINOPHEN 650 MG/20.3 ML UDC PO PRN (08:48)
[2018-02-06] MEDS: QUEtiapine FUMARATE 25 MG TAB PO SCH ×2 (08:48→20:45)
[2018-02-06] MEDS: PANTOPRAZOLE SODIUM 40 MG VIAL IV PUSH SCH (08:48)
[2018-02-06] MEDS: DOCUSATE SODIUM 50 MG/SENNA 8.6 MG TAB PO SCH ×2 (08:48→19:57)
[2018-02-06] MEDS ORDERED: SODIUM CHLORIDE 0.9% IV SCH (09:00)
[2018-02-06] MEDS ORDERED: TRANEXAMIC ACID IV SCH (09:00)
[2018-02-06] MEDS ORDERED: KETAMINE HCL 500 MG/10 ML VIAL ONE (10:58)
[2018-02-06] MEDS ORDERED: CISATRACURIUM BESYLATE 20 MG/10 ML VIAL ONE ×2 (11:17→13:55)
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
[2018-02-06] MEDS ORDERED: fentaNYL CITRATE 250 MCG/5 ML AMP ONE (13:55)
[2018-02-06] MEDS ORDERED: MICAFUNGIN INJ 100 MG in SODIUM CHLORIDE 0.9% INJ 100 ML IV SCH (14:00)
[2018-02-06] MEDS ORDERED: TOBRAMYCIN 1200 MG VIAL (for ortho/sterile core) OTHER ONE (14:11)
[2018-02-06] MEDS ORDERED: ceFAZolin 2 GM PREMIX 50 ML IV SCH (16:00)
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
[2018-02-06 17:37] LABS: HEMATOCRIT 25.9 % (35.0-46.0); HEMOGLOBIN 8.7 GM/DL (11.6-15.3)
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
[2018-02-07] VITALS (21 sets, daily range): BP systolic 106–158; BP diastolic 61–81; PULSE 82–102; RESP 17–21; TEMP 98.6–103.2; O2SAT 99–100
[2018-02-07] MEDS: oxyCODONE HCL ORAL CONC 5 MG/0.25 ML SYRINGE PO SCH ×7 (02:29→21:48)
[2018-02-07] MEDS: fentaNYL DRIP 250 ML IV PRN ×2 (02:29→17:13)
[2018-02-07] MEDS: CHLORHEXIDINE GLUCONATE 2 % 1 PACK (2 CLOTHS) TOP SCH (04:00)
[2018-02-07] MEDS: LINEZOLID 600 MG PREMIX 300 ML IV SCH (04:49)
[2018-02-07] MEDS: SODIUM CHLORIDE 0.9% FLUSH 10 ML FLUSH IV FLUSH PRN (05:39)
[2018-02-07] MEDS: metroNIDAZOLE 500 MG TAB PO SCH ×3 (05:40→21:11)
[2018-02-07 06:10] LABS: AUTOMATED NEUTROPHIL # 9.6 TH/MM3 (1.8-7.7); BASOPHIL # 0.1 TH/MM3 (0-0.2); BASOPHIL % 0.7 % (0.0-2.0); EOSINOPHIL # 0.8 TH/MM3 (0-0.4); EOSINOPHIL % 6.6 % (0.0-4.0); HEMATOCRIT 23.6 % (35.0-46.0); LYMPH % 5.8 % (9.0-44.0); LYMPHOCYTE # 0.7 TH/MM3 (1.0-4.8); MEAN CELL VOLUME 90.1 FL (80.0-100.0); MEAN CORPUSCULAR HEMOGLOBIN 30.5 PG (27.0-34.0); MEAN CORPUSCULAR HGB CONC 33.8 % (32.0-36.0); MEAN PLATELET VOLUME 9.1 FL (7.0-11.0); MONO % 6.4 % (0.0-8.0); MONOCYTE # 0.8 TH/MM3 (0-0.9); NEUT % 80.5 % (16.0-70.0); PLATELET COUNT 404 TH/MM3 (150-450); RED BLOOD COUNT 2.62 MIL/MM3 (4.00-5.30); RED CELL DISTRIBUTION WIDTH 15.9 % (11.6-17.2); WHITE BLOOD COUNT 11.9 TH/MM3 (4.0-11.0)
[2018-02-07] MEDS: ACETAMINOPHEN 650 MG/20.3 ML UDC PO PRN ×3 (06:31→17:14)
[2018-02-07] MEDS: MIDAZOLAM 100 MG/NS 100 ML DRIP Premix IV PRN (06:33)
[2018-02-07 06:39] LABS: BICARBONATE 27.6 MEQ/L (21.0-32.0); CALCIUM 7.9 MG/DL (8.5-10.1); CREATININE 6.01 MG/DL (0.50-1.00)
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
[2018-02-07] MEDS: CHLORHEXIDINE 0.12% (ORAL KIT) 15 ML CUP MT SCH ×2 (08:00→20:00)
[2018-02-07 08:09] LABS: BANDS 10 % (0-6); LYMPHOCYTES 6 % (9-44); METAMYELOCYTES 1 % (0-1); MONOCYTES 6 % (0-8); MYELOCYTES 1 % (0-0); NEUTROPHIL # MANUAL DIFF 9.9 TH/MM3 (1.8-7.7); POLYS (SEG NEUTROPHILS) 71 % (16-70)
[2018-02-07] MEDS: MAGNESIUM HYDROXIDE SUSP 30 ML CUP PO SCH ×2 (08:24→21:00)
[2018-02-07] MEDS: DOCUSATE SODIUM 50 MG/SENNA 8.6 MG TAB PO SCH ×2 (08:24→21:00)
[2018-02-07] MEDS: FUROSEMIDE 40 MG/4 ML VIAL IV PUSH SCH ×2 (08:39→21:10)
[2018-02-07] MEDS: MEROPENEM INJ 500 MG in SODIUM CHLORIDE 0.9% INJ 100 ML IV SCH (08:39)
[2018-02-07] MEDS: PANTOPRAZOLE SODIUM 40 MG VIAL IV PUSH SCH (08:40)
[2018-02-07] MEDS: QUEtiapine FUMARATE 25 MG TAB PO SCH ×2 (08:40→21:10)
[2018-02-07] MEDS ORDERED: LIDOCAINE 1%/EPINEPHrine 1:100,000 SOLN 30 ML VIAL ONE (10:31)
--- NOTE | 2018-02-07 11:20 | PD.RAD ---
Post Procedure Progress Note Pre Procedure Diagnosis: (1) Acute renal failure Post Procedure Diagnosis: (1) Acute renal failure Procedure Date: February 07, 2018 Supervising Radiologist: Tyler Diehl Estimated blood loss: 3cc Anesthesia: Local, Conscious Sedation Plan of Activity Patient to Unit: Critical Care Patient Condition: Fair Additional Comments: Right Ij vascath placed without difficulty catheter is in good position OK for use Full report to follow See PACS Report for procedural detail/treatment Tyler Diehl MD February 07, 2018 11:20
[2018-02-07] MEDS ORDERED: HEPARIN SODIUM - IV 2,000 UNITS/2 ML VIAL IV FLUSH PRN (11:30)
[2018-02-07] MEDS ORDERED: SODIUM CHLORIDE 0.9% FLUSH 10 ML FLUSH IV FLUSH PRN (11:30)
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
--- NOTE | 2018-02-07 12:26 | RADRPT ---
EXAM DATE/TIME: 02/07/2018 11:50 [facility] COMPARISON: ANKLE LEFT COMPLETE ([id number]), January 22, 2018, 12:12. INDICATIONS : Status post open reduction and internal fixation of ankle fracture.. MEDICAL HISTORY : Unobtainable. SURGICAL HISTORY : Unobtainable. ENCOUNTER: Subsequent ACUITY: 2 weeks PAIN SCORE: Non-responsive. LOCATION: Left ankle. FINDINGS: Multiple views of the left ankle were obtained and demonstrate interval placement of a screw plate fi xation device transfixing the distal fibular fracture which is now in anatomic alignment. There are 2 lag screws now noted transfixing the medial malleolus. The ankle mortise is intact. CONCLUSION: Status post open rigid internal fixation. Maverick Yepez MD on February 07, 2018 at 12:24 Board Certified Radiologist. This report was verified electronically.
--- NOTE | 2018-02-07 12:28 | RADRPT ---
EXAM DATE/TIME: 02/07/2018 11:38 [facility] COMPARISON: ANKLE LEFT COMPLETE ([id number]), February 07, 2018, 11:50. INDICATIONS : Fractures RADIATION DOSE: 7.29 CTDIvol (mGy) MEDICAL HISTORY : None SURGICAL HISTORY : None. ENCOUNTER: Initial ACUITY: 1 day PAIN SCALE: Non-responsive LOCATION: RT Ankles TECHNIQUE: Volumetric scanning of the ankle was performed. Using automated exposure control and adjustment of t he mA and/or kV according to patient size, radiation dose was kept as low as reasonably achievable to obtain optimal diagnostic quality images. DICOM format image data is available electronically for review and comparison. FINDINGS: Multiple fractures are noted involving the foot. The distal tibia and fibula appear to be intact. The re is good alignment at the mortise joint. There is an intra-articular comminuted fracture involving the talus bone. The calcaneus appears to be grossly intact. There is a comminuted fracture involving the inferior tarsal navicular bone. Diffusely comminuted fractures are seen throughout the cuboid bon e. There is a nondisplaced fracture involving the distal fifth metatarsal. There are displaced fractu res involving the distal portions of the second, third and fourth metatarsals. No definite joint disl ocation is seen at the metatarsal phalangeal joints. There appeared a fractures involving the second and third cuneiforms. There is diffuse soft tissue swelling. CONCLUSION: Multiple severe fractures involving the right foot. Luiz Miller MD on February 07, 2018 at 12:16 Board Certified Radiologist. This report was verified electronically.
--- NOTE | 2018-02-07 12:30 | RADRPT ---
EXAM DATE/TIME: 02/07/2018 11:52 [facility] COMPARISON: KNEE LEFT LTD (1 OR 2VWS), January 22, 2018, 12:06. INDICATIONS : Followup proximal tibial fracture.. MEDICAL HISTORY : Unobtainable. SURGICAL HISTORY : Unobtainable. ENCOUNTER: Subsequent ACUITY: 2 weeks PAIN SCORE: Non-responsive. LOCATION: Left Knee. FINDINGS: AP and lateral views of the knee were obtained and again demonstrate a comminuted fracture deformity of the anterior proximal tibia with multiple ill-defined fracture line is. Impression deformity of th e anterior cortex is again noted. The tibial plateaus appear congruent. The joint spaces remain prese rved. Overlying soft tissue swelling is again noted. The patella is intact. CONCLUSION: No significant change in the appearance of the proximal tibial fracture. Maverick Yepez MD on February 07, 2018 at 12:27 Board Certified Radiologist. This report was verified electronically.
--- NOTE | 2018-02-07 12:31 | RADRPT ---
EXAM DATE/TIME: 02/07/2018 11:55 [facility] COMPARISON: FOREARM LEFT (2VWS), January 23, 2018, 16:07. INDICATIONS : Followup ulnar fracture status post open rigid internal fixation.. MEDICAL HISTORY : Unobtainable. SURGICAL HISTORY : Unobtainable. ENCOUNTER: Subsequent ACUITY: 2 weeks PAIN SCORE: Non-responsive. LOCATION: Left forearm. FINDINGS: Multiple views of the left forearm were obtained and again demonstrate a screw plate fixation device transfixing the ulnar fracture. The fracture fragments are in anatomic alignment. There is overlying soft tissue swelling and surgical skin rodri. The radius remains intact. CONCLUSION: Stable appearance status post open rigid internal fixation of the ulnar fracture. Maverick Yepez MD on February 07, 2018 at 12:29 Board Certified Radiologist. This report was verified electronically.
[2018-02-07] MEDS: HEPARIN SODIUM - SQ 10,000 UNITS/ML VIAL SQ SCH ×2 (13:36→21:47)
[2018-02-07] MEDS: DEXMEDETOMIDINE INJ 200 MCG in SODIUM CHLORIDE 0.9% INJ 50 ML IV PRN ×6 (13:43→23:30)
[2018-02-07] MEDS: ceFAZolin 1,000 MG/NS 100 ML IV SCH ×2 (17:13)
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
[2018-02-08] VITALS (22 sets, daily range): BP systolic 105–135; BP diastolic 57–80; PULSE 57–108; RESP 16–34; TEMP 99–103.3; O2SAT 96–100
[2018-02-08] MEDS: oxyCODONE HCL ORAL CONC 5 MG/0.25 ML SYRINGE PO SCH ×6 (02:04→22:00)
[2018-02-08] MEDS: DEXMEDETOMIDINE INJ 200 MCG in SODIUM CHLORIDE 0.9% INJ 50 ML IV PRN ×7 (02:15→22:29)
[2018-02-08] MEDS: CHLORHEXIDINE GLUCONATE 2 % 1 PACK (2 CLOTHS) TOP SCH (04:00)
[2018-02-08] MEDS: HEPARIN SODIUM - SQ 10,000 UNITS/ML VIAL SQ SCH ×3 (06:00→22:00)
[2018-02-08] MEDS: metroNIDAZOLE 500 MG TAB PO SCH ×3 (06:00→22:00)
[2018-02-08] MEDS: ACETAMINOPHEN 325 MG TAB PO PRN (06:20)
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
[2018-02-08 07:09] LABS: AUTOMATED NEUTROPHIL # 7.9 TH/MM3 (1.8-7.7); BASOPHIL # 0.1 TH/MM3 (0-0.2); BASOPHIL % 0.8 % (0.0-2.0); EOSINOPHIL # 0.5 TH/MM3 (0-0.4); HEMOGLOBIN 7.1 GM/DL (11.6-15.3); LYMPH % 10.5 % (9.0-44.0); LYMPHOCYTE # 1.1 TH/MM3 (1.0-4.8); MEAN CELL VOLUME 91.5 FL (80.0-100.0); MEAN CORPUSCULAR HGB CONC 33.9 % (32.0-36.0); MEAN PLATELET VOLUME 8.9 FL (7.0-11.0); MONO % 8.6 % (0.0-8.0); MONOCYTE # 0.9 TH/MM3 (0-0.9); NEUT % 75.1 % (16.0-70.0); PLATELET COUNT 341 TH/MM3 (150-450); RED BLOOD COUNT 2.29 MIL/MM3 (4.00-5.30); RED CELL DISTRIBUTION WIDTH 16.1 % (11.6-17.2); WHITE BLOOD COUNT 10.5 TH/MM3 (4.0-11.0)
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
[2018-02-08 07:35] LABS: BICARBONATE 26.8 MEQ/L (21.0-32.0); CREATININE 5.32 MG/DL (0.50-1.00)
[2018-02-08] MEDS: CHLORHEXIDINE 0.12% (ORAL KIT) 15 ML CUP MT SCH ×2 (08:00→20:00)
[2018-02-08] MEDS: MEROPENEM INJ 500 MG in SODIUM CHLORIDE 0.9% INJ 100 ML IV SCH (08:04)
[2018-02-08] MEDS: SODIUM CHLORIDE 0.9% FLUSH 10 ML FLUSH IV FLUSH PRN (08:04)
[2018-02-08] MEDS: QUEtiapine FUMARATE 25 MG TAB PO SCH ×2 (08:04→21:00)
[2018-02-08] MEDS: MAGNESIUM HYDROXIDE SUSP 30 ML CUP PO SCH ×2 (08:05→21:00)
[2018-02-08] MEDS: FUROSEMIDE 40 MG/4 ML VIAL IV PUSH SCH ×2 (08:05→21:00)
[2018-02-08] MEDS: PANTOPRAZOLE SODIUM 40 MG VIAL IV PUSH SCH (08:05)
[2018-02-08] MEDS: DOCUSATE SODIUM 50 MG/SENNA 8.6 MG TAB PO SCH ×2 (08:05→21:00)
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
--- NOTE | 2018-02-08 09:39 | RADRPT ---
EXAM DATE/TIME: 02/07/2018 10:45 [facility] COMPARISON: No previous studies available for comparison. INDICATIONS : Patient presents with elevated BUN and Creatinine in need of a temporary dialysis catheter. MEDICAL HISTORY : NA SURGICAL HISTORY : NA ENCOUNTER: Initial ACUITY: 2 days PAIN SCORE: FLUORO TIME: 0.4 minutes IMAGE SERIES: 1 ACCESS: Right internal jugular vein DEVICE(S): 1.) 14 [place] 15 cm Schon catheter PROCEDURE : 1. Ultrasound guided venipuncture. 2. Fluoroscopic guidance. 3. Central line placement. The risks, benefits and alternatives to the procedure were explained and verbal and written consent w as obtained. The site was prepped in sterile fashion. Full sterile technique was used, including ca p, mask, sterile gloves and gown and a large sterile sheet. Hand hygiene and 2% chlorhexidine prep w as utilized per protocol for cutaneous antisepsis with appropriate dry time for site. Sterile gel an d sterile probe cover were utilized for ultrasound guidance. The skin and subcutaneous tissues were infiltrated with local anesthetic solution. A suitable site a yoav the vein was selected with ultrasound and fluoroscopic guidance. A small incision was made. Th e vein was accessed under direct ultrasound visualization using the micropuncture technique. The yosi ropuncture set was exchanged for a 0.035 wire. The tract was dilated. The catheter was advanced int o position under direct fluoroscopic visualization. The catheter was fixed in place with suture and a sterile dressing was applied. The patient tolerated the procedure well and there were no complications. CONCLUSION: Uncomplicated non-tunneled 14 [place] Vas-Cath placement as above. Tyler Diehl MD on February 08, 2018 at 9:37 Board Certified Radiologist. This report was verified electronically.
[2018-02-08] MEDS: ACETAMINOPHEN 650 MG/20.3 ML UDC PO PRN ×2 (11:38→18:12)
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
[2018-02-08 17:38] LABS: HEMATOCRIT 25.7 % (35.0-46.0); HEMOGLOBIN 8.7 GM/DL (11.6-15.3)
[2018-02-08] MEDS: ceFAZolin 1,000 MG/NS 100 ML IV SCH ×2 (18:12)
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
[2018-02-08] MEDS: fentaNYL DRIP 250 ML IV PRN (22:29)
[2018-02-09] VITALS (17 sets, daily range): BP systolic 106–149; BP diastolic 59–78; PULSE 50–90; RESP 16–21; TEMP 96–100.8; O2SAT 99–100
[2018-02-09] MEDS: oxyCODONE HCL ORAL CONC 5 MG/0.25 ML SYRINGE PO SCH ×6 (01:59→21:41)
[2018-02-09] MEDS: DEXMEDETOMIDINE INJ 200 MCG in SODIUM CHLORIDE 0.9% INJ 50 ML IV PRN ×5 (02:19→20:32)
[2018-02-09] MEDS: CHLORHEXIDINE GLUCONATE 2 % 1 PACK (2 CLOTHS) TOP SCH (04:00)
[2018-02-09 05:05] LABS: AUTOMATED NEUTROPHIL # 9.5 TH/MM3 (1.8-7.7); BASOPHIL # 0.1 TH/MM3 (0-0.2); BASOPHIL % 0.4 % (0.0-2.0); EOSINOPHIL # 0.9 TH/MM3 (0-0.4); EOSINOPHIL % 7.2 % (0.0-4.0); HEMOGLOBIN 11.7 GM/DL (11.6-15.3); LYMPH % 9.9 % (9.0-44.0); LYMPHOCYTE # 1.2 TH/MM3 (1.0-4.8); MEAN CELL VOLUME 90.4 FL (80.0-100.0); MEAN CORPUSCULAR HEMOGLOBIN 30.1 PG (27.0-34.0); MEAN CORPUSCULAR HGB CONC 33.3 % (32.0-36.0); MEAN PLATELET VOLUME 9.2 FL (7.0-11.0); MONO % 5.5 % (0.0-8.0); MONOCYTE # 0.7 TH/MM3 (0-0.9); PLATELET COUNT 404 TH/MM3 (150-450); RED BLOOD COUNT 3.88 MIL/MM3 (4.00-5.30); RED CELL DISTRIBUTION WIDTH 15.8 % (11.6-17.2); WHITE BLOOD COUNT 12.3 TH/MM3 (4.0-11.0)
[2018-02-09 05:23] LABS: BICARBONATE 24.5 MEQ/L (21.0-32.0); CALCIUM 8.7 MG/DL (8.5-10.1); CREATININE 6.45 MG/DL (0.50-1.00)
[2018-02-09] MEDS: HEPARIN SODIUM - SQ 10,000 UNITS/ML VIAL SQ SCH ×3 (06:00→21:41)
[2018-02-09] MEDS: metroNIDAZOLE 500 MG TAB PO SCH ×3 (06:00→21:41)
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
[2018-02-09] MEDS: CHLORHEXIDINE 0.12% (ORAL KIT) 15 ML CUP MT SCH ×2 (08:00→20:00)
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
[2018-02-09] MEDS: DOCUSATE SODIUM 50 MG/SENNA 8.6 MG TAB PO SCH ×2 (09:00→21:00)
[2018-02-09] MEDS: MAGNESIUM HYDROXIDE SUSP 30 ML CUP PO SCH ×2 (09:00→21:00)
[2018-02-09] MEDS: FUROSEMIDE 40 MG/4 ML VIAL IV PUSH SCH ×2 (09:16→21:00)
[2018-02-09] MEDS: PANTOPRAZOLE SODIUM 40 MG VIAL IV PUSH SCH (09:16)
[2018-02-09] MEDS: QUEtiapine FUMARATE 25 MG TAB PO SCH ×2 (09:18→21:00)
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
[2018-02-09] MEDS: HEPARIN SODIUM - IV 10,000 UNITS/10 ML VIAL PRN (14:18)
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
[2018-02-09] MEDS: ALBUMIN 25% INJ 100 ML IV PRN (14:30)
[2018-02-09] MEDS: RESP: ALBUTEROL 2.5 MG/IPRATROPIUM 0.5 MG NEB (PRN) NEB (14:31)
[2018-02-09] MEDS ORDERED: fentaNYL CITRATE 250 MCG/5 ML AMP ONE ×2 (14:53→14:54)
[2018-02-09] MEDS ORDERED: CISATRACURIUM BESYLATE 20 MG/10 ML VIAL ONE (14:53)
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
[2018-02-09] MEDS: EPOETIN ALFA 10,000 UNITS/ML VIAL IV PUSH PRN (16:38)
[2018-02-10] VITALS (19 sets, daily range): BP systolic 127–145; BP diastolic 62–84; PULSE 64–96; RESP 11–26; TEMP 99.1–100.3; O2SAT 92–100
[2018-02-10] MEDS: DEXMEDETOMIDINE INJ 200 MCG in SODIUM CHLORIDE 0.9% INJ 50 ML IV PRN (01:12)
[2018-02-10] MEDS: oxyCODONE HCL ORAL CONC 5 MG/0.25 ML SYRINGE PO SCH ×6 (02:05→19:56)
[2018-02-10] MEDS: CHLORHEXIDINE GLUCONATE 2 % 1 PACK (2 CLOTHS) TOP SCH (04:00)
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
[2018-02-10] MEDS: HEPARIN SODIUM - SQ 10,000 UNITS/ML VIAL SQ SCH ×3 (06:00→20:05)
[2018-02-10] MEDS: metroNIDAZOLE 500 MG TAB PO SCH ×3 (06:00→20:04)
[2018-02-10 06:39] LABS: AUTOMATED NEUTROPHIL # 4.5 TH/MM3 (1.8-7.7); BASOPHIL # 0.1 TH/MM3 (0-0.2); EOSINOPHIL # 0.9 TH/MM3 (0-0.4); EOSINOPHIL % 12.8 % (0.0-4.0); HEMATOCRIT 28.8 % (35.0-46.0); HEMOGLOBIN 9.8 GM/DL (11.6-15.3); LYMPH % 12.2 % (9.0-44.0); LYMPHOCYTE # 0.8 TH/MM3 (1.0-4.8); MEAN CELL VOLUME 89.7 FL (80.0-100.0); MEAN CORPUSCULAR HEMOGLOBIN 30.5 PG (27.0-34.0); MONOCYTE # 0.6 TH/MM3 (0-0.9); PLATELET COUNT 331 TH/MM3 (150-450); RED BLOOD COUNT 3.21 MIL/MM3 (4.00-5.30); RED CELL DISTRIBUTION WIDTH 15.4 % (11.6-17.2)
[2018-02-10 07:03] LABS: ALBUMIN 1.8 GM/DL (3.4-5.0); AST (GOT) 45 U/L (15-37); BICARBONATE 28.8 MEQ/L (21.0-32.0); BLOOD UREA NITROGEN 41 MG/DL (7-18); CALCIUM 8.1 MG/DL (8.5-10.1); CHLORIDE 99 MEQ/L (98-107); CREATININE 5.05 MG/DL (0.50-1.00); GLOMERULAR FILTRATION RATE 7 ML/MIN (>89); GLUCOSE,RANDOM 79 MG/DL (74-106); MAGNESIUM 2.4 MG/DL (1.5-2.5); SODIUM (NA) 140 MEQ/L (136-145)
[2018-02-10 07:08] LABS: ALKALINE PHOSPHATASE 100 U/L (45-117); ALT (GPT) 8 U/L (10-53); TOTAL BILIRUBIN ADULT 0.6 MG/DL (0.2-1.0)
[2018-02-10] MEDS ORDERED: VANCOMYCIN HCL 1000 MG VIAL ONE ×2 (07:30→14:29)
[2018-02-10] MEDS ORDERED: ceFAZolin 2 GM PREMIX 50 ML ONE (07:30)
[2018-02-10] MEDS ORDERED: GENTAMICIN SULFATE 80 MG/2 ML VIAL ONE ×2 (07:30→14:29)
[2018-02-10] MEDS: CHLORHEXIDINE 0.12% (ORAL KIT) 15 ML CUP MT SCH ×2 (08:00→19:57)
[2018-02-10] MEDS: DOCUSATE SODIUM 50 MG/SENNA 8.6 MG TAB PO SCH ×2 (09:00→19:56)
[2018-02-10] MEDS: PANTOPRAZOLE SODIUM 40 MG VIAL IV PUSH SCH (09:00)
[2018-02-10] MEDS: MAGNESIUM HYDROXIDE SUSP 30 ML CUP PO SCH ×2 (09:00→19:56)
[2018-02-10] MEDS: FUROSEMIDE 40 MG/4 ML VIAL IV PUSH SCH ×2 (09:00→19:53)
[2018-02-10] MEDS: QUEtiapine FUMARATE 25 MG TAB PO SCH ×2 (10:17→19:53)
[2018-02-10] MEDS: EPOETIN ALFA 10,000 UNITS/ML VIAL IV PUSH PRN (10:35)
[2018-02-10] MEDS: HEPARIN SODIUM - IV 10,000 UNITS/10 ML VIAL PRN (10:35)
[2018-02-10] MEDS: GENTAMICIN SULFATE 20 MG/2 ML VIAL OTHER PRN (10:35)
[2018-02-10] MEDS: SODIUM CHLOR 0.9% 1000 ML INJ 1,000 ML OTHER PRN (10:36)
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
[2018-02-10] MEDS ORDERED: DEXAMETHASONE SOD PHOS 4 MG/ML VIAL IV ONE (12:00)
[2018-02-10] MEDS ORDERED: ONDANSETRON HCL 4 MG/2 ML VIAL IV PUSH ONE (12:00)
[2018-02-10] MEDS ORDERED: ceFAZolin INJ 1,000 MG VIAL ONE (14:29)
[2018-02-10] MEDS ORDERED: CLINDAMYCIN PHOS 900 MG/6 ML VIAL ONE (15:01)
[2018-02-10] MEDS: fentaNYL DRIP 250 ML IV PRN (16:44)
[2018-02-10] MEDS ORDERED: MIDAZOLAM HCL 2 MG/2 ML VIAL ONE (18:34)
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
[2018-02-10] MEDS: HALOPERIDOL LACTATE 5 MG/ML AMP IM PRN (19:46)
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
[2018-02-11] VITALS (18 sets, daily range): BP systolic 122–144; BP diastolic 60–73; PULSE 69–90; RESP 16–29; TEMP 98.2–100.2; O2SAT 97–100
[2018-02-11] MEDS: oxyCODONE HCL ORAL CONC 5 MG/0.25 ML SYRINGE PO SCH ×3 (00:49→09:36)
[2018-02-11] MEDS: fentaNYL DRIP 250 ML IV PRN (02:43)
[2018-02-11] MEDS: HALOPERIDOL LACTATE 5 MG/ML AMP IM PRN (02:53)
[2018-02-11] MEDS: CHLORHEXIDINE GLUCONATE 2 % 1 PACK (2 CLOTHS) TOP SCH (04:00)
[2018-02-11] MEDS: metroNIDAZOLE 500 MG TAB PO SCH ×3 (04:20→21:48)
[2018-02-11] MEDS: HEPARIN SODIUM - SQ 10,000 UNITS/ML VIAL SQ SCH ×3 (04:20→21:49)
[2018-02-11] MEDS: RESP: ALBUTEROL 2.5 MG/IPRATROPIUM 0.5 MG NEB (PRN) NEB (04:55)
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
[2018-02-11 06:58] LABS: AUTOMATED NEUTROPHIL # 4.9 TH/MM3 (1.8-7.7); BASOPHIL # 0.1 TH/MM3 (0-0.2); EOSINOPHIL # 0.2 TH/MM3 (0-0.4); EOSINOPHIL % 2.8 % (0.0-4.0); HEMATOCRIT 25.3 % (35.0-46.0); HEMOGLOBIN 8.4 GM/DL (11.6-15.3); LYMPH % 15.6 % (9.0-44.0); LYMPHOCYTE # 1.1 TH/MM3 (1.0-4.8); MEAN CELL VOLUME 91.6 FL (80.0-100.0); MEAN CORPUSCULAR HEMOGLOBIN 30.6 PG (27.0-34.0); MEAN CORPUSCULAR HGB CONC 33.3 % (32.0-36.0); MEAN PLATELET VOLUME 8.7 FL (7.0-11.0); MONO % 13.2 % (0.0-8.0); NEUT % 67.4 % (16.0-70.0); PLATELET COUNT 295 TH/MM3 (150-450); RED BLOOD COUNT 2.76 MIL/MM3 (4.00-5.30); WHITE BLOOD COUNT 7.3 TH/MM3 (4.0-11.0)
[2018-02-11 07:30] LABS: ALBUMIN 1.7 GM/DL (3.4-5.0); ALT (GPT) 10 U/L (10-53); AST (GOT) 48 U/L (15-37); BICARBONATE 24.4 MEQ/L (21.0-32.0); BLOOD UREA NITROGEN 35 MG/DL (7-18); CALCIUM 7.9 MG/DL (8.5-10.1); CHLORIDE 99 MEQ/L (98-107); CREATININE 4.22 MG/DL (0.50-1.00); GLOMERULAR FILTRATION RATE 9 ML/MIN (>89); GLUCOSE,RANDOM 71 MG/DL (74-106); MAGNESIUM 2.2 MG/DL (1.5-2.5); SODIUM (NA) 138 MEQ/L (136-145)
[2018-02-11 07:33] LABS: ALKALINE PHOSPHATASE 95 U/L (45-117); TOTAL BILIRUBIN ADULT 0.5 MG/DL (0.2-1.0); TOTAL PROTEIN 5.6 GM/DL (6.4-8.2)
[2018-02-11] MEDS: CHLORHEXIDINE 0.12% (ORAL KIT) 15 ML CUP MT SCH ×2 (08:00→20:00)
[2018-02-11 08:42] LABS: BANDS 4 % (0-6); BASOPHILS 1 % (0-2); CORRECTED NUCLEATED RBC 1 /100 WBC (0-0); LYMPHOCYTES 20 % (9-44); MONOCYTES 4 % (0-8); MYELOCYTES 1 % (0-0); NEUTROPHIL # MANUAL DIFF 5.4 TH/MM3 (1.8-7.7); NUCLEATED RED BLOOD CELL 1 (0-0); POLYS (SEG NEUTROPHILS) 69 % (16-70)
[2018-02-11] MEDS: DOCUSATE SODIUM 50 MG/SENNA 8.6 MG TAB PO SCH ×2 (09:00→21:00)
[2018-02-11] MEDS: MAGNESIUM HYDROXIDE SUSP 30 ML CUP PO SCH ×2 (09:00→21:00)
[2018-02-11] MEDS: FUROSEMIDE 40 MG/4 ML VIAL IV PUSH SCH ×2 (09:36→21:49)
[2018-02-11] MEDS: PANTOPRAZOLE SODIUM 40 MG VIAL IV PUSH SCH (09:36)
[2018-02-11] MEDS: QUEtiapine FUMARATE 25 MG TAB PO SCH ×2 (09:36→21:48)
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
[2018-02-11] MEDS: ACETAMINOPHEN 1000 MG/100 ML 100 ML IV SCH ×3 (12:34→21:49)
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
[2018-02-11] MEDS: MORPHINE SULFATE 4 MG/ML INJ IV PUSH PRN (16:48)
[2018-02-11] MEDS: DIAZEPAM 2 MG TAB PO PRN (18:36)
[2018-02-12] VITALS (13 sets, daily range): BP systolic 128–147; BP diastolic 75–80; PULSE 68–87; RESP 23–28; TEMP 98–98.6; O2SAT 92–100
[2018-02-12] MEDS: CHLORHEXIDINE GLUCONATE 2 % 1 PACK (2 CLOTHS) TOP SCH (04:00)
[2018-02-12] MEDS: ACETAMINOPHEN 1000 MG/100 ML 100 ML IV SCH (05:18)
[2018-02-12] MEDS: metroNIDAZOLE 500 MG TAB PO SCH ×3 (05:19→22:00)
[2018-02-12] MEDS: HEPARIN SODIUM - SQ 10,000 UNITS/ML VIAL SQ SCH ×3 (05:19→22:00)
[2018-02-12 06:11] LABS: AUTOMATED NEUTROPHIL # 6.3 TH/MM3 (1.8-7.7); BASOPHIL # 0.1 TH/MM3 (0-0.2); BASOPHIL % 0.7 % (0.0-2.0); EOSINOPHIL # 0.9 TH/MM3 (0-0.4); EOSINOPHIL % 10.8 % (0.0-4.0); HEMATOCRIT 28.3 % (35.0-46.0); HEMOGLOBIN 9.5 GM/DL (11.6-15.3); LYMPH % 9.4 % (9.0-44.0); LYMPHOCYTE # 0.8 TH/MM3 (1.0-4.8); MEAN CELL VOLUME 89.5 FL (80.0-100.0); MEAN CORPUSCULAR HEMOGLOBIN 30.2 PG (27.0-34.0); MEAN CORPUSCULAR HGB CONC 33.7 % (32.0-36.0); MEAN PLATELET VOLUME 8.3 FL (7.0-11.0); MONO % 7.6 % (0.0-8.0); MONOCYTE # 0.7 TH/MM3 (0-0.9); NEUT % 71.5 % (16.0-70.0); PLATELET COUNT 368 TH/MM3 (150-450); RED BLOOD COUNT 3.16 MIL/MM3 (4.00-5.30); RED CELL DISTRIBUTION WIDTH 14.9 % (11.6-17.2); WHITE BLOOD COUNT 8.7 TH/MM3 (4.0-11.0)
[2018-02-12 06:28] LABS: ALBUMIN 1.6 GM/DL (3.4-5.0); AST (GOT) 34 U/L (15-37); BICARBONATE 23.4 MEQ/L (21.0-32.0); BLOOD UREA NITROGEN 45 MG/DL (7-18); CALCIUM 7.9 MG/DL (8.5-10.1); CHLORIDE 93 MEQ/L (98-107); CREATININE 5.17 MG/DL (0.50-1.00); GLOMERULAR FILTRATION RATE 7 ML/MIN (>89); GLUCOSE,RANDOM 91 MG/DL (74-106); MAGNESIUM 2.2 MG/DL (1.5-2.5); SODIUM (NA) 133 MEQ/L (136-145)
[2018-02-12 06:29] LABS: ALT (GPT) 8 U/L (10-53)
[2018-02-12 06:31] LABS: ALKALINE PHOSPHATASE 108 U/L (45-117); TOTAL BILIRUBIN ADULT 0.5 MG/DL (0.2-1.0); TOTAL PROTEIN 5.7 GM/DL (6.4-8.2)
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
[2018-02-12] MEDS: CHLORHEXIDINE 0.12% (ORAL KIT) 15 ML CUP MT SCH ×2 (08:00→19:34)
[2018-02-12] MEDS: PANTOPRAZOLE SODIUM 40 MG VIAL IV PUSH SCH (08:41)
[2018-02-12] MEDS: QUEtiapine FUMARATE 25 MG TAB PO SCH ×2 (08:41→21:00)
[2018-02-12] MEDS: FUROSEMIDE 40 MG/4 ML VIAL IV PUSH SCH ×2 (08:41→23:33)
[2018-02-12] MEDS: MORPHINE SULFATE 4 MG/ML INJ IV PUSH PRN ×3 (08:42→17:09)
[2018-02-12] MEDS: ONDANSETRON HCL 4 MG/2 ML VIAL IV PUSH PRN (08:43)
[2018-02-12] MEDS: MAGNESIUM HYDROXIDE SUSP 30 ML CUP PO SCH ×2 (09:00→19:34)
[2018-02-12] MEDS: DOCUSATE SODIUM 50 MG/SENNA 8.6 MG TAB PO SCH ×2 (09:00→19:34)
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
--- NOTE | 2018-02-12 11:18 | HHI.PR ---
Addendum to Inpatient Note Addendum Reason: Additional Documentation Additional Information Chart review documentation Doing well off antibiotics: extubated, WBC normal, no fever. Will sign off please call back if any change in clinical condition or questions. Jami Colbert MD February 12, 2018 11:18
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
[2018-02-12] MEDS: DIAZEPAM 2 MG TAB PO PRN ×2 (12:29→22:45)
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
[2018-02-13] VITALS (18 sets, daily range): BP systolic 129–163; BP diastolic 75–94; PULSE 69–96; RESP 20–34; TEMP 98.6–99.8; O2SAT 92–100
[2018-02-13] MEDS: MORPHINE SULFATE 4 MG/ML INJ IV PUSH PRN ×4 (01:39→19:47)
[2018-02-13] MEDS: CHLORHEXIDINE GLUCONATE 2 % 1 PACK (2 CLOTHS) TOP SCH (04:00)
[2018-02-13] MEDS ORDERED: WATER BACTERIOSTATIC 30 ML VIAL IV ONE (05:00)
[2018-02-13] MEDS ORDERED: EPINEPHrine HCL (1:10,000) 1 MG/10 ML SYRINGE IV ONE (05:00)
[2018-02-13] MEDS ORDERED: AMIODARONE HCL 150 MG/3 ML VIAL IV ONE (05:00)
[2018-02-13 05:54] LABS: AUTOMATED NEUTROPHIL # 7.2 TH/MM3 (1.8-7.7); BASOPHIL # 0.1 TH/MM3 (0-0.2); BASOPHIL % 0.9 % (0.0-2.0); EOSINOPHIL # 1.8 TH/MM3 (0-0.4); EOSINOPHIL % 16.3 % (0.0-4.0); HEMATOCRIT 31.3 % (35.0-46.0); HEMOGLOBIN 10.4 GM/DL (11.6-15.3); LYMPH % 9.2 % (9.0-44.0); MEAN CORPUSCULAR HGB CONC 33.3 % (32.0-36.0); MEAN PLATELET VOLUME 8.4 FL (7.0-11.0); MONO % 8.4 % (0.0-8.0); MONOCYTE # 0.9 TH/MM3 (0-0.9); NEUT % 65.2 % (16.0-70.0); PLATELET COUNT 399 TH/MM3 (150-450); RED BLOOD COUNT 3.47 MIL/MM3 (4.00-5.30); RED CELL DISTRIBUTION WIDTH 15.2 % (11.6-17.2); WHITE BLOOD COUNT 11.1 TH/MM3 (4.0-11.0)
[2018-02-13] MEDS: metroNIDAZOLE 500 MG TAB PO SCH ×3 (06:23→21:57)
[2018-02-13] MEDS: HEPARIN SODIUM - SQ 10,000 UNITS/ML VIAL SQ SCH ×3 (06:23→21:56)
[2018-02-13 06:25] LABS: ALBUMIN 1.8 GM/DL (3.4-5.0); ALKALINE PHOSPHATASE 134 U/L (45-117); ALT (GPT) 6 U/L (10-53); AST (GOT) 33 U/L (15-37); BICARBONATE 24.3 MEQ/L (21.0-32.0); BLOOD UREA NITROGEN 57 MG/DL (7-18); CALCIUM 8.2 MG/DL (8.5-10.1); CHLORIDE 91 MEQ/L (98-107); GLOMERULAR FILTRATION RATE 6 ML/MIN (>89); GLUCOSE,RANDOM 91 MG/DL (74-106); SODIUM (NA) 131 MEQ/L (136-145); TOTAL BILIRUBIN ADULT 0.5 MG/DL (0.2-1.0); TOTAL PROTEIN 6.3 GM/DL (6.4-8.2)
[2018-02-13] MEDS: CHLORHEXIDINE 0.12% (ORAL KIT) 15 ML CUP MT SCH ×2 (08:00→20:00)
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
[2018-02-13] MEDS: FUROSEMIDE 40 MG/4 ML VIAL IV PUSH SCH ×2 (08:21→21:00)
[2018-02-13] MEDS: DOCUSATE SODIUM 50 MG/SENNA 8.6 MG TAB PO SCH ×2 (08:21→21:00)
[2018-02-13] MEDS: PANTOPRAZOLE SODIUM 40 MG VIAL IV PUSH SCH (08:21)
[2018-02-13] MEDS: QUEtiapine FUMARATE 25 MG TAB PO SCH ×2 (08:22→21:57)
[2018-02-13] MEDS: MAGNESIUM HYDROXIDE SUSP 30 ML CUP PO SCH ×2 (09:00→21:00)
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
--- NOTE | 2018-02-13 14:04 | ECHRPT ---
Indication: Shortness of breath CONCLUSIONS The left ventricular systolic function is moderately reduced with an estimated ejection fraction in the range of 40-45%. There is a small pericardial effusion. No associated right atrial or right ventricular chamber collapse was noted. BP: / HR: Rhythm: Sinus MEASUREMENTS (Male / Female) Normal Values Technical Quality:Good 2D ECHO LV Diastolic Diameter PLAX 4.3 cm 4.2 - 5.9 / 3.9 - 5.3 cm LV Systolic Diameter PLAX 3.2 cm IVS Diastolic Thickness 1.0 cm 0.6 - 1.0 / 0.6 - 0.9 cm LVPW Diastolic Thickness 1.0 cm 0.6 - 1.0 / 0.6 - 0.9 cm LV Relative Wall Thickness 0.5 LVOT Diameter 1.9 cm M-MODE Aortic Root Diameter MM 2.8 cm LA Systolic Diameter MM 2.6 cm LA Ao Ratio MM 0.9 AV Cusp Separation MM 2.5 cm DOPPLER AV Peak Velocity 153.0 cm/s AV Peak Gradient 9.4 mmHg LVOT Peak Velocity 99.7 cm/s LVOT Peak Gradient 4.0 mmHg AV Area Cont Eq pk 1.8 cm LV E' Lateral Velocity 10.7 cm/s LV E' Septal Velocity 7.1 cm/s PV Peak Velocity 147.0 cm/s PV Peak Gradient 8.6 mmHg FINDINGS LEFT VENTRICLE The left ventricular systolic function is moderately reduced with an estimated ejection fraction in the range of 40-45%. Wall thickness is normal. Normal left ventricular size. RIGHT VENTRICLE Normal right ventricular size and systolic function. LEFT ATRIUM The left atrial size is normal. RIGHT ATRIUM The right atrial size is normal. ATRIAL SEPTUM Normal atrial septal thickness AORTA The aortic root and proximal ascending aorta are normal in size on limited imaging. MITRAL VALVE Structurally normal mitral valve. No mitral valve stenosis or regurgitation. AORTIC VALVE Trileaflet aortic valve. No aortic valve stenosis or regurgitation. TRICUSPID VALVE Grossly normal tricuspid valve. No tricuspid valve stenosis or regurgitation. PULMONARY VALVE The pulmonary valve is not well visualized. Trivial pulmonary valve regurgitation. VESSELS The inferior vena cava is normal in size. PERICARDIUM There is a small pericardial effusion. No associated right atrial or right ventricular chamber collapse was noted. Donte Banks DO (Electronically Signed) Final Date:13 Feb 2018 14:04
[2018-02-13 14:14] LABS: BICARBONATE 25.7 MEQ/L (21.0-32.0); CALCIUM 7.9 MG/DL (8.5-10.1); CREATININE 4.94 MG/DL (0.50-1.00)
[2018-02-13] MEDS: DIAZEPAM 2 MG TAB PO PRN ×2 (14:23→21:57)
--- NOTE | 2018-02-13 17:07 | EKG ---
Date Performed: 02/13/2018 Time Performed: 14:16:02 PTAGE: 89 years EKG: Sinus rhythm POSSIBLE LEFT ATRIAL ENLARGEMENT INCOMPLETE RIGHT BUNDLE BRANCH BLOCK POSSIBLE RIGHT VENTRICULAR HYP ERTROPHY ABNORMAL ECG INTERPRETATION BASED ON A DEFAULT AGE OF 42 YEARS NO PREVIOUS TRACING DOCTOR: Kael Donaldson Interpretating Date/Time 02/13/2018 17:06:20
[2018-02-14] VITALS (17 sets, daily range): BP systolic 85–155; BP diastolic 58–103; PULSE 92–138; RESP 12–30; TEMP 98.5–99.8; O2SAT 93–100
[2018-02-14] MEDS: diphenhydrAMINE HCL 25 MG CAP PO PRN
[2018-02-14 03:49] LABS: AUTOMATED NEUTROPHIL # 6.5 TH/MM3 (1.8-7.7); BASOPHIL # 0.1 TH/MM3 (0-0.2); BASOPHIL % 0.5 % (0.0-2.0); EOSINOPHIL % 18.9 % (0.0-4.0); HEMATOCRIT 32.7 % (35.0-46.0); HEMOGLOBIN 10.9 GM/DL (11.6-15.3); LYMPHOCYTE # 0.9 TH/MM3 (1.0-4.8); MEAN CELL VOLUME 89.5 FL (80.0-100.0); MEAN CORPUSCULAR HEMOGLOBIN 29.9 PG (27.0-34.0); MEAN CORPUSCULAR HGB CONC 33.4 % (32.0-36.0); MEAN PLATELET VOLUME 8.2 FL (7.0-11.0); MONO % 9.5 % (0.0-8.0); NEUT % 62.1 % (16.0-70.0); PLATELET COUNT 401 TH/MM3 (150-450); RED BLOOD COUNT 3.65 MIL/MM3 (4.00-5.30); RED CELL DISTRIBUTION WIDTH 15.2 % (11.6-17.2); WHITE BLOOD COUNT 10.4 TH/MM3 (4.0-11.0)
[2018-02-14] MEDS: CHLORHEXIDINE GLUCONATE 2 % 1 PACK (2 CLOTHS) TOP SCH ×2 (04:00→23:49)
[2018-02-14] MEDS: MORPHINE SULFATE 4 MG/ML INJ IV PUSH PRN ×2 (04:06)
[2018-02-14 04:13] LABS: ALBUMIN 1.7 GM/DL (3.4-5.0); AST (GOT) 28 U/L (15-37); BICARBONATE 26.8 MEQ/L (21.0-32.0); BLOOD UREA NITROGEN 51 MG/DL (7-18); CALCIUM 7.9 MG/DL (8.5-10.1); CHLORIDE 95 MEQ/L (98-107); CREATININE 5.77 MG/DL (0.50-1.00); GLOMERULAR FILTRATION RATE 6 ML/MIN (>89); GLUCOSE,RANDOM 95 MG/DL (74-106); SODIUM (NA) 135 MEQ/L (136-145)
[2018-02-14 04:18] LABS: ALKALINE PHOSPHATASE 142 U/L (45-117); ALT (GPT) 7 U/L (10-53); PHOSPHORUS 5.8 MG/DL (2.5-4.9); TOTAL BILIRUBIN ADULT 0.6 MG/DL (0.2-1.0)
[2018-02-14] MEDS: HEPARIN SODIUM - SQ 10,000 UNITS/ML VIAL SQ SCH ×3 (05:35→20:12)
[2018-02-14] MEDS: metroNIDAZOLE 500 MG TAB PO SCH ×2 (05:35→13:47)
[2018-02-14] MEDS: DIAZEPAM 2 MG TAB PO PRN (06:02)
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
[2018-02-14] MEDS ORDERED: HYDROmorphone HCL PF 2 MG/ML VIAL IV PUSH PRN (07:15)
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
[2018-02-14] MEDS: CHLORHEXIDINE 0.12% (ORAL KIT) 15 ML CUP MT SCH ×2 (08:00→20:15)
[2018-02-14] MEDS: MAGNESIUM HYDROXIDE SUSP 30 ML CUP PO SCH ×2 (08:02→20:13)
[2018-02-14] MEDS: FUROSEMIDE 40 MG/4 ML VIAL IV PUSH SCH ×2 (08:02→20:13)
[2018-02-14] MEDS: DOCUSATE SODIUM 50 MG/SENNA 8.6 MG TAB PO SCH ×2 (08:02→20:13)
[2018-02-14] MEDS: QUEtiapine FUMARATE 25 MG TAB PO SCH ×2 (08:02→20:13)
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
[2018-02-14] MEDS ORDERED: SUCCINYLCHOLINE CHLORIDE 200 MG/10 ML VIAL IV PUSH STA (08:43)
[2018-02-14] MEDS ORDERED: MIDAZOLAM HCL 5 MG/ML VIAL (1 ML) ONE (08:43)
[2018-02-14] MEDS ORDERED: MIDAZOLAM HCL 5 MG/ML VIAL (1 ML) IV PUSH STA (08:43)
[2018-02-14] MEDS ORDERED: SUCCINYLCHOLINE CHLORIDE 200 MG/10 ML VIAL ONE (08:44)
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
[2018-02-14] MEDS ORDERED: PROPOFOL 500 MG/50 ML INJ 50 ML ONE (08:58)
[2018-02-14] MEDS: PANTOPRAZOLE SODIUM 40 MG VIAL IV PUSH SCH (09:00)
--- NOTE | 2018-02-14 09:10 | HHI.PR ---
Subjective Remarks After my visit to the patient this a.m. I was contacted by ICU and is apparently the patient's respiratory status has deteriorated and she is on BiPAP at a heart rate of 120. Recommended they contact critical care and determine whether not the patient needs to be placed on ventilator support and stabilize prior to attempting dialysis today. Cardiology consultation is also pending. As far as CTA of the chest is concerned if there is a opinion that performing this may aid in patient management significantly at this point in time with consideration of the risk-benefit ratio CTA chest is not absolutely contraindicated from my point of view. Objective Vital Signs Date Time Temp Pulse Resp B/P (MAP) Pulse Ox O2 Delivery O2 Flow Rate FiO2 02/14/18 08:09 93 60 02/14/18 08:00 125 02/14/18 08:00 98.5 125 30 155/103 (120) 97 02/14/18 07:00 96 Bi-Pap 60 02/14/18 06:00 106 02/14/18 04:00 92 02/14/18 04:00 99.8 92 20 147/92 (110) 98 02/14/18 02:00 106 02/14/18 00:11 99 40 02/14/18 00:00 99.2 100 21 138/88 (105) 96 02/14/18 00:00 100 02/13/18 22:02 98 40 02/13/18 22:00 94 02/13/18 21:58 95 Nasal Cannula 4.00 02/13/18 20:00 92 02/13/18 20:00 99.0 92 26 143/94 (110) 97 02/13/18 20:00 94 Nasal Cannula 5.00 02/13/18 18:00 82 02/13/18 16:15 94 Venturi Mask 6.00 50 02/13/18 16:15 94 Venturi Mask 50 02/13/18 16:00 94 02/13/18 16:00 99.8 94 24 129/81 (97) 100 02/13/18 14:00 88 02/13/18 13:02 96 50 02/13/18 13:00 97 Bi-Pap 50 02/13/18 12:00 70 02/13/18 12:00 99.0 70 34 163/75 (104) 92 02/13/18 11:58 94 Nasal Cannula 4.00 02/13/18 10:00 96 I/O 02/13/18 02/13/18 02/13/18 02/14/18 02/14/18 02/14/18 06:59 14:59 22:59 06:59 14:59 22:59 Intake Total 100 ml 720 ml 200 ml Output Total 160 ml 1150 ml 200 ml Balance -60 ml -430 ml 0 ml Intake Oral 100 ml 720 ml 200 ml Output Urine Total 160 ml 150 ml 200 ml Hemodialysis 1000 ml # Bowel Movements 1 0 2 Result Diagram: 02/14/1831102/14/18311 Mike Collins MD February 14, 2018 09:10
[2018-02-14] MEDS ORDERED: PROPOFOL 1000 MG/100 ML INJ 100 ML IV PRN (09:30)
[2018-02-14] MEDS ORDERED: fentaNYL DRIP 250 ML IV PRN (09:30)
[2018-02-14] MEDS: fentaNYL DRIP 250 ML IV PRN (09:51)
[2018-02-14] MEDS: PROPOFOL 1000 MG/100 ML INJ 100 ML IV PRN ×2 (09:51→16:03)
--- NOTE | 2018-02-14 11:07 | PD.PROCEDR ---
Procedure Note Procedure Endotracheal Intubation Diagnosis: Acute hypoxic respiratory failure Indications: Acute hypoxic respiratory failure Consent: verbal consent was obtained from the family. due to the emergent nature of the procedure, written consent was not obtained. Anesthesia: versed 10mg iv, succinylcholine 100mg iv. Description of the Procedure: The patient was positioned in the sniffing position. Pre-oxygenation was performed using a 100% fio2 BiPAP. Anesthesia was induced via rapid sequence. A Collazo #2 was used for laryngoscopy and a Grade I view was obtained. A 8.0 cuffed endotracheal tube was inserted atraumatically through the vocal cords. Confirmation of correct endotracheal tube placement was made by equal and bilateral breath sounds and colorimetric CO2 detection. The endotracheal tube was secured at 21 cm at the teeth. There were no immediate complications noted. The patient remained hemodynamically stable throughout the procedure. A chest x-ray has been ordered. I personally performed the procedure. James Ashley MD February 14, 2018 11:07
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
[2018-02-14] MEDS ORDERED: METOPROLOL TARTRATE 5 MG/5 ML VIAL ONE (14:37)
[2018-02-14] MEDS ORDERED: METOPROLOL TARTRATE 5 MG/5 ML VIAL IV PUSH ONE (15:15)
[2018-02-14] MEDS: METOPROLOL TARTRATE 25 MG TAB PO SCH ×2 (18:24→23:49)
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
[2018-02-14] MEDS ORDERED: NOREPINEPHRINE-DEXTROSE DRIP 250 ML IV ONE (21:18)
[2018-02-14] MEDS ORDERED: PHENYLEPHRINE HCL 10 MG/ML VIAL ONE ×2 (21:22→21:25)
[2018-02-14] MEDS: VASOPRESSIN INJ 40 UNITS in DEXTROSE 5% IN WATER 100ML INJ 98 ML IV SCH ×2 (21:25)
[2018-02-14] MEDS ORDERED: PHENYLEPHRINE INJ 80 MG in DEXTROSE 5% IN WATE 500 ML INJ 492 ML IV PRN ×2 (21:30)
[2018-02-14] MEDS ORDERED: MIDAZOLAM 100 MG/100 ML INJ 100 ML IV PRN (21:30)
[2018-02-14] MEDS ORDERED: DIGOXIN 0.5 MG/2 ML VIAL IV PUSH ONE ×2 (21:30→22:00)
[2018-02-14] MEDS ORDERED: TERBUTALINE INJ 1 MG/ML AMP SQ PRN (21:30)
[2018-02-14] MEDS: MIDAZOLAM 50 MG/NS 50 ML DRIP Premix IV PRN (21:45)
[2018-02-14 22:13] LABS: HEMATOCRIT 32.3 % (35.0-46.0); HEMOGLOBIN 10.8 GM/DL (11.6-15.3); MEAN CELL VOLUME 89.8 FL (80.0-100.0); MEAN CORPUSCULAR HEMOGLOBIN 29.8 PG (27.0-34.0); MEAN CORPUSCULAR HGB CONC 33.2 % (32.0-36.0); PLATELET COUNT 417 TH/MM3 (150-450); RED CELL DISTRIBUTION WIDTH 15.4 % (11.6-17.2); WHITE BLOOD COUNT 12.7 TH/MM3 (4.0-11.0)
[2018-02-14 22:35] LABS: ALBUMIN 1.8 GM/DL (3.4-5.0); AST (GOT) 37 U/L (15-37); BICARBONATE 24.9 MEQ/L (21.0-32.0); BLOOD UREA NITROGEN 42 MG/DL (7-18); CALCIUM 8.3 MG/DL (8.5-10.1); CHLORIDE 96 MEQ/L (98-107); CREATININE 4.77 MG/DL (0.50-1.00); GLOMERULAR FILTRATION RATE 8 ML/MIN (>89); GLUCOSE,RANDOM 108 MG/DL (74-106); SODIUM (NA) 137 MEQ/L (136-145)
[2018-02-14 22:38] LABS: ALKALINE PHOSPHATASE 150 U/L (45-117); ALT (GPT) 9 U/L (10-53); PHOSPHORUS 6.1 MG/DL (2.5-4.9); TOTAL BILIRUBIN ADULT 0.7 MG/DL (0.2-1.0); TOTAL PROTEIN 6.5 GM/DL (6.4-8.2)
[2018-02-15] VITALS (15 sets, daily range): BP systolic 99–128; BP diastolic 59–78; PULSE 71–119; RESP 12–26; TEMP 97.5–101.6; O2SAT 96–100
[2018-02-15 01:09] LABS: BACTERIA, URINE RARE /hpf; BLOOD, URINE MOD (NEG); GLUCOSE,URINE NEG (NEG); HYALINE CAST, URINE 26 /lpf (RARE); KETONE, URINE TRACE mg/dL (NEG); MUCUS URINE FEW /lpf (OCC); NITRITE,URINE NEG (NEG); RENAL EPITHELIAL CELLS <1 /hpf; SQUAMOUS EPITHELIAL CELL URINE 4 /hpf (0-5); TRANSITIONAL EPI CELLS, URINE 1 /hpf; URINE COLOR YELLOW (YELLW/STRAW); URINE LEUKOCYTE ESTERASE LARGE (NEG); WHITE BLOOD CELL CLUMPS FEW
[2018-02-15 01:10] LABS: BILIRUBIN, URINE NEG (NEG)
[2018-02-15 03:49] LABS: ALBUMIN 1.8 GM/DL (3.4-5.0); AST (GOT) 37 U/L (15-37); BLOOD UREA NITROGEN 45 MG/DL (7-18); CALCIUM 8.3 MG/DL (8.5-10.1); CHLORIDE 97 MEQ/L (98-107); CREATININE 5.04 MG/DL (0.50-1.00); GLOMERULAR FILTRATION RATE 7 ML/MIN (>89); GLUCOSE,RANDOM 97 MG/DL (74-106); SODIUM (NA) 136 MEQ/L (136-145)
[2018-02-15 03:53] LABS: ALKALINE PHOSPHATASE 145 U/L (45-117); ALT (GPT) 8 U/L (10-53); AUTOMATED NEUTROPHIL # 6.8 TH/MM3 (1.8-7.7); BASOPHIL # 0.1 TH/MM3 (0-0.2); BASOPHIL % 0.8 % (0.0-2.0); EOSINOPHIL # 1.5 TH/MM3 (0-0.4); EOSINOPHIL % 13.8 % (0.0-4.0); HEMATOCRIT 30.9 % (35.0-46.0); HEMOGLOBIN 10.2 GM/DL (11.6-15.3); LYMPH % 10.2 % (9.0-44.0); LYMPHOCYTE # 1.1 TH/MM3 (1.0-4.8); MEAN CORPUSCULAR HEMOGLOBIN 30.3 PG (27.0-34.0); MEAN CORPUSCULAR HGB CONC 32.9 % (32.0-36.0); MEAN PLATELET VOLUME 8.8 FL (7.0-11.0); MONO % 11.6 % (0.0-8.0); MONOCYTE # 1.2 TH/MM3 (0-0.9); NEUT % 63.6 % (16.0-70.0); PLATELET COUNT 362 TH/MM3 (150-450); RED BLOOD COUNT 3.36 MIL/MM3 (4.00-5.30); RED CELL DISTRIBUTION WIDTH 15.3 % (11.6-17.2); TOTAL BILIRUBIN ADULT 0.6 MG/DL (0.2-1.0); TOTAL PROTEIN 6.4 GM/DL (6.4-8.2); WHITE BLOOD COUNT 10.7 TH/MM3 (4.0-11.0)
[2018-02-15] MEDS: MIDAZOLAM 50 MG/NS 50 ML DRIP Premix IV PRN ×2 (04:01→11:32)
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
[2018-02-15] MEDS: ACETAMINOPHEN 325 MG TAB PO PRN (04:55)
[2018-02-15] MEDS: METOPROLOL TARTRATE 25 MG TAB PO SCH ×3 (05:29→17:47)
[2018-02-15] MEDS: HEPARIN SODIUM - SQ 10,000 UNITS/ML VIAL SQ SCH ×3 (05:29→20:40)
[2018-02-15] MEDS: fentaNYL DRIP 250 ML IV PRN (05:55)
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
[2018-02-15] MEDS: DOCUSATE SODIUM 50 MG/SENNA 8.6 MG TAB PO SCH ×2 (09:08→20:40)
[2018-02-15] MEDS: QUEtiapine FUMARATE 25 MG TAB PO SCH ×2 (09:08→20:40)
[2018-02-15] MEDS: MAGNESIUM HYDROXIDE SUSP 30 ML CUP PO SCH ×2 (09:08→20:40)
[2018-02-15] MEDS: PANTOPRAZOLE SODIUM 40 MG VIAL IV PUSH SCH (09:08)
[2018-02-15] MEDS: FUROSEMIDE 40 MG/4 ML VIAL IV PUSH SCH (09:09)
[2018-02-15] MEDS ORDERED: fentaNYL DRIP 250 ML IV PRN (09:45)
[2018-02-15] MEDS: CHLORHEXIDINE 0.12% (ORAL KIT) 15 ML CUP MT SCH ×2 (09:48→20:00)
[2018-02-15] MEDS: ALBUMIN 25% INJ 100 ML IV PRN ×2 (10:14→11:06)
[2018-02-15] MEDS: GENTAMICIN SULFATE 20 MG/2 ML VIAL OTHER PRN (10:15)
[2018-02-15] MEDS: HEPARIN SODIUM - IV 10,000 UNITS/10 ML VIAL PRN (10:15)
[2018-02-15] MEDS: oxyCODONE HCL ORAL CONC 5 MG/0.25 ML SYRINGE PO SCH ×4 (11:30→20:40)
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
[2018-02-15] MEDS: VASOPRESSIN INJ 40 UNITS in DEXTROSE 5% IN WATER 100ML INJ 98 ML IV SCH ×2 (13:57)
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
--- NOTE | 2018-02-15 19:43 | EKG ---
Date Performed: 02/15/2018 Time Performed: 07:46:30 PTAGE: 89 years EKG: Sinus rhythm WITH SHORT AL INTERVAL POSSIBLE LEFT ATRIAL ENLARGEMENT POSSIBLE RIGHT VENTRICULAR HYPERTROPHY Diffu se T wave abnormality, indicating possible subendocardiol Infarction or A central neurologica event. Rightr axis deviation. The T wave inversions are much worse. Clinical corrolation is needed. ABNORMAL ECG PREVIOUS TRACING : 02/13/2018 14.16 DOCTOR: Michael Garcia Interpretating Date/Time 02/15/2018 19:42:06
[2018-02-16] VITALS (17 sets, daily range): BP systolic 119–138; BP diastolic 59–80; PULSE 71–110; RESP 18–31; TEMP 98.4–100.8; O2SAT 95–100
[2018-02-16] MEDS: oxyCODONE HCL ORAL CONC 5 MG/0.25 ML SYRINGE PO SCH ×4 (02:00→12:43)
[2018-02-16] MEDS: CHLORHEXIDINE GLUCONATE 2 % 1 PACK (2 CLOTHS) TOP SCH (04:00)
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
[2018-02-16 05:31] LABS: AUTOMATED NEUTROPHIL # 4.9 TH/MM3 (1.8-7.7); BASOPHIL # 0.1 TH/MM3 (0-0.2); BASOPHIL % 0.6 % (0.0-2.0); EOSINOPHIL # 1.8 TH/MM3 (0-0.4); EOSINOPHIL % 21.3 % (0.0-4.0); HEMATOCRIT 27.1 % (35.0-46.0); LYMPH % 13.1 % (9.0-44.0); LYMPHOCYTE # 1.1 TH/MM3 (1.0-4.8); MEAN CELL VOLUME 92.7 FL (80.0-100.0); MEAN CORPUSCULAR HEMOGLOBIN 30.6 PG (27.0-34.0); MEAN PLATELET VOLUME 8.6 FL (7.0-11.0); MONOCYTE # 0.6 TH/MM3 (0-0.9); PLATELET COUNT 347 TH/MM3 (150-450); RED BLOOD COUNT 2.92 MIL/MM3 (4.00-5.30); RED CELL DISTRIBUTION WIDTH 15.5 % (11.6-17.2); WHITE BLOOD COUNT 8.5 TH/MM3 (4.0-11.0)
[2018-02-16] MEDS: HEPARIN SODIUM - SQ 10,000 UNITS/ML VIAL SQ SCH ×3 (05:34→20:18)
[2018-02-16] MEDS: METOPROLOL TARTRATE 25 MG TAB PO SCH ×5 (05:34→20:17)
[2018-02-16] MEDS: VASOPRESSIN INJ 40 UNITS in DEXTROSE 5% IN WATER 100ML INJ 98 ML IV SCH ×4 (05:35→23:25)
[2018-02-16 05:55] LABS: BICARBONATE 26.1 MEQ/L (21.0-32.0); CALCIUM 7.9 MG/DL (8.5-10.1); CREATININE 3.74 MG/DL (0.50-1.00); MAGNESIUM 2.1 MG/DL (1.5-2.5)
[2018-02-16] MEDS: fentaNYL DRIP 250 ML IV PRN (06:09)
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
[2018-02-16] MEDS: CHLORHEXIDINE 0.12% (ORAL KIT) 15 ML CUP MT SCH (08:00)
[2018-02-16] MEDS: MAGNESIUM HYDROXIDE SUSP 30 ML CUP PO SCH ×2 (08:20→20:18)
[2018-02-16] MEDS: DOCUSATE SODIUM 50 MG/SENNA 8.6 MG TAB PO SCH ×2 (08:20→20:17)
[2018-02-16] MEDS: QUEtiapine FUMARATE 25 MG TAB PO SCH ×3 (09:00→20:17)
[2018-02-16] MEDS: RESP: ALBUTEROL 2.5 MG/IPRATROPIUM 0.5 MG NEB (PRN) NEB (13:22)
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
[2018-02-16] MEDS: ALPRAZolam 0.25 MG TAB PO PRN (17:17)
[2018-02-16] MEDS: MORPHINE SULFATE 4 MG/ML INJ IV PUSH PRN ×2 (19:25→22:19)
[2018-02-16] MEDS: FAMOTIDINE 20 MG TAB PO SCH (20:17)
[2018-02-16] MEDS ORDERED: FAMOTIDINE 20 MG TAB PO SCH (21:00)
[2018-02-16] MEDS: diphenhydrAMINE HCL 25 MG CAP PO PRN (22:19)
[2018-02-17] VITALS (14 sets, daily range): BP systolic 128–144; BP diastolic 70–90; PULSE 88–117; RESP 22–28; TEMP 98.2–98.7; O2SAT 94–100
[2018-02-17] MEDS: ALPRAZolam 0.25 MG TAB PO PRN ×2 (01:26→20:13)
[2018-02-17] MEDS: MORPHINE SULFATE 4 MG/ML INJ IV PUSH PRN ×4 (01:26→12:18)
[2018-02-17] MEDS: CHLORHEXIDINE GLUCONATE 2 % 1 PACK (2 CLOTHS) TOP SCH (03:57)
[2018-02-17] MEDS: HEPARIN SODIUM - SQ 10,000 UNITS/ML VIAL SQ SCH ×3 (05:39→20:11)
[2018-02-17 06:03] LABS: AUTOMATED NEUTROPHIL # 6.5 TH/MM3 (1.8-7.7); BASOPHIL # 0.1 TH/MM3 (0-0.2); BASOPHIL % 1.3 % (0.0-2.0); EOSINOPHIL # 1.7 TH/MM3 (0-0.4); HEMATOCRIT 25.5 % (35.0-46.0); HEMOGLOBIN 8.5 GM/DL (11.6-15.3); LYMPH % 13.8 % (9.0-44.0); LYMPHOCYTE # 1.5 TH/MM3 (1.0-4.8); MEAN CELL VOLUME 91.9 FL (80.0-100.0); MEAN CORPUSCULAR HEMOGLOBIN 30.6 PG (27.0-34.0); MEAN CORPUSCULAR HGB CONC 33.3 % (32.0-36.0); MEAN PLATELET VOLUME 8.4 FL (7.0-11.0); MONO % 11.4 % (0.0-8.0); MONOCYTE # 1.3 TH/MM3 (0-0.9); NEUT % 58.5 % (16.0-70.0); PLATELET COUNT 280 TH/MM3 (150-450); RED BLOOD COUNT 2.77 MIL/MM3 (4.00-5.30); RED CELL DISTRIBUTION WIDTH 15.5 % (11.6-17.2); WHITE BLOOD COUNT 11.2 TH/MM3 (4.0-11.0)
[2018-02-17 06:31] LABS: CALCIUM 7.9 MG/DL (8.5-10.1); CREATININE 3.17 MG/DL (0.50-1.00)
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
[2018-02-17] MEDS: RESP: ALBUTEROL 2.5 MG/IPRATROPIUM 0.5 MG NEB (SCH) NEB ×5 (08:00→23:52)
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
--- NOTE | 2018-02-17 08:25 | EKG ---
Date Performed: 02/16/2018 Time Performed: 05:20:46 PTAGE: 89 years EKG: Sinus rhythm Right axis deviation LVH with secondary repolarization abnormality Extensive ST-T changes are probab ly due to ventricular hypertrophy Abnormal ECG NO PREVIOUS TRACING DOCTOR: Janki Stoner Interpretating Date/Time 02/17/2018 08:24:23
[2018-02-17] MEDS: FAMOTIDINE 20 MG TAB PO SCH ×2 (08:57→20:10)
[2018-02-17] MEDS: MAGNESIUM HYDROXIDE SUSP 30 ML CUP PO SCH ×2 (08:59→20:11)
[2018-02-17] MEDS: DOCUSATE SODIUM 50 MG/SENNA 8.6 MG TAB PO SCH ×2 (08:59→20:11)
[2018-02-17] MEDS: METOPROLOL TARTRATE 25 MG TAB PO SCH ×2 (08:59→20:11)
[2018-02-17] MEDS: ALBUMIN 25% INJ 100 ML IV PRN (09:07)
[2018-02-17] MEDS: GENTAMICIN SULFATE 20 MG/2 ML VIAL OTHER PRN (09:08)
[2018-02-17] MEDS: HEPARIN SODIUM - IV 10,000 UNITS/10 ML VIAL PRN (09:08)
[2018-02-17] MEDS: fentaNYL 50 MCG/HR PATCH T-DERMAL SCH (12:19)
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
[2018-02-17] MEDS: VASOPRESSIN INJ 40 UNITS in DEXTROSE 5% IN WATER 100ML INJ 98 ML IV SCH ×2 (16:05)
--- NOTE | 2018-02-17 18:15 | EKG ---
Date Performed: 02/17/2018 Time Performed: 05:29:38 PTAGE: 89 years EKG: Sinus rhythm . Right axis deviation Possible LVH with secondary repolarization abnormality Inferior/lateral ST-T c hanges are probably due to ventricular hypertrophy Abnormal ECG Since the PREVIOUS TRACING , no significant change noted DOCTOR: Itzel Patel Interpretating Date/Time 02/17/2018 18:14:24
[2018-02-17] MEDS: traZODone HCL 50 MG TAB PO SCH ×2 (20:11→21:44)
[2018-02-18] VITALS (9 sets, daily range): BP systolic 130–156; BP diastolic 74–82; PULSE 95–123; RESP 16–25; TEMP 97.9–98.6; O2SAT 92–100
[2018-02-18] MEDS: CHLORHEXIDINE GLUCONATE 2 % 1 PACK (2 CLOTHS) TOP SCH (04:00)
[2018-02-18] MEDS: RESP: ALBUTEROL 2.5 MG/IPRATROPIUM 0.5 MG NEB (SCH) NEB ×4 (04:24→23:50)
[2018-02-18] MEDS: HEPARIN SODIUM - SQ 10,000 UNITS/ML VIAL SQ SCH ×3 (04:55→21:49)
[2018-02-18 05:35] LABS: HEMATOCRIT 24.9 % (35.0-46.0); HEMOGLOBIN 8.4 GM/DL (11.6-15.3); MEAN CELL VOLUME 91.9 FL (80.0-100.0); MEAN CORPUSCULAR HEMOGLOBIN 30.9 PG (27.0-34.0); MEAN CORPUSCULAR HGB CONC 33.6 % (32.0-36.0); MEAN PLATELET VOLUME 8.3 FL (7.0-11.0); PLATELET COUNT 302 TH/MM3 (150-450); RED BLOOD COUNT 2.71 MIL/MM3 (4.00-5.30); RED CELL DISTRIBUTION WIDTH 15.4 % (11.6-17.2); WHITE BLOOD COUNT 10.6 TH/MM3 (4.0-11.0)
[2018-02-18 05:56] LABS: BICARBONATE 28.8 MEQ/L (21.0-32.0); CALCIUM 7.9 MG/DL (8.5-10.1); CREATININE 2.82 MG/DL (0.50-1.00)
[2018-02-18] MEDS: DOCUSATE SODIUM 50 MG/SENNA 8.6 MG TAB PO SCH ×2 (07:53→21:49)
[2018-02-18] MEDS: FAMOTIDINE 20 MG TAB PO SCH ×2 (07:53→21:49)
[2018-02-18] MEDS: METOPROLOL TARTRATE 25 MG TAB PO SCH ×2 (07:53→21:49)
[2018-02-18] MEDS: MAGNESIUM HYDROXIDE SUSP 30 ML CUP PO SCH ×2 (07:53→21:00)
[2018-02-18] MEDS: MORPHINE SULFATE 4 MG/ML INJ IV PUSH PRN ×4 (07:54→17:02)
[2018-02-18 10:27] LABS: BANDS 4 % (0-6); LYMPHOCYTES 13 % (9-44); MONOCYTES 7 % (0-8); MYELOCYTES 1 % (0-0); POLYS (SEG NEUTROPHILS) 70 % (16-70)
[2018-02-18 10:28] LABS: STOMATOCYTES 1+ (NORMAL)
[2018-02-18] MEDS: ALPRAZolam 0.25 MG TAB PO PRN ×2 (11:23→21:48)
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
[2018-02-18] MEDS: ACETAMINOPHEN 325 MG TAB PO PRN (15:50)
[2018-02-18] MEDS: traZODone HCL 50 MG TAB PO SCH (21:49)
[2018-02-19] VITALS (11 sets, daily range): BP systolic 122–149; BP diastolic 76–88; PULSE 105–127; RESP 16–20; TEMP 97.1–99.2; O2SAT 91–98
[2018-02-19] MEDS: RESP: ALBUTEROL 2.5 MG/IPRATROPIUM 0.5 MG NEB (SCH) NEB ×4 (03:57→20:47)
[2018-02-19 04:11] LABS: AUTOMATED NEUTROPHIL # 6.5 TH/MM3 (1.8-7.7); BASOPHIL # 0.1 TH/MM3 (0-0.2); BASOPHIL % 0.9 % (0.0-2.0); EOSINOPHIL # 1.3 TH/MM3 (0-0.4); EOSINOPHIL % 12.4 % (0.0-4.0); HEMATOCRIT 27.2 % (35.0-46.0); LYMPH % 15.8 % (9.0-44.0); LYMPHOCYTE # 1.7 TH/MM3 (1.0-4.8); MEAN CELL VOLUME 91.9 FL (80.0-100.0); MEAN CORPUSCULAR HEMOGLOBIN 30.4 PG (27.0-34.0); MEAN CORPUSCULAR HGB CONC 33.1 % (32.0-36.0); MEAN PLATELET VOLUME 8.2 FL (7.0-11.0); MONOCYTE # 1.1 TH/MM3 (0-0.9); NEUT % 60.9 % (16.0-70.0); PLATELET COUNT 334 TH/MM3 (150-450); RED BLOOD COUNT 2.96 MIL/MM3 (4.00-5.30); RED CELL DISTRIBUTION WIDTH 15.6 % (11.6-17.2); WHITE BLOOD COUNT 10.8 TH/MM3 (4.0-11.0)
[2018-02-19 04:21] LABS: INTERNATIONAL NORMALIZED RATIO 1.2 RATIO; PROTHROMBIN TIME - PATIENT 12.3 SEC (9.8-11.6)
[2018-02-19 05:03] LABS: BICARBONATE 30.2 MEQ/L (21.0-32.0); CALCIUM 8.2 MG/DL (8.5-10.1); CREATININE 3.88 MG/DL (0.50-1.00)
[2018-02-19] MEDS: HEPARIN SODIUM - SQ 10,000 UNITS/ML VIAL SQ SCH ×3 (06:00→21:05)
[2018-02-19] MEDS: MORPHINE SULFATE 4 MG/ML INJ IV PUSH PRN ×3 (06:11→16:42)
[2018-02-19 07:37] LABS: BANDS 10 % (0-6); BASOPHILS 2 % (0-2); LYMPHOCYTES 8 % (9-44); METAMYELOCYTES 2 % (0-1); MONOCYTES 5 % (0-8); MYELOCYTES 1 % (0-0); POLYS (SEG NEUTROPHILS) 61 % (16-70)
[2018-02-19] MEDS: ALPRAZolam 0.25 MG TAB PO PRN ×2 (07:57→15:51)
[2018-02-19] MEDS: FAMOTIDINE 20 MG TAB PO SCH ×2 (07:58→21:06)
[2018-02-19] MEDS: MAGNESIUM HYDROXIDE SUSP 30 ML CUP PO SCH ×2 (08:02→21:00)
[2018-02-19] MEDS: DOCUSATE SODIUM 50 MG/SENNA 8.6 MG TAB PO SCH ×2 (08:02→21:05)
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
--- NOTE | 2018-02-19 08:56 | PD.ORT.PN ---
Subjective Subjective Remarks Awake and alert Objective Vitals Vital Signs Date Time Temp Pulse Resp B/P (MAP) Pulse Ox O2 Delivery O2 Flow Rate FiO2 02/19/18 08:20 98 02/19/18 04:35 97.1 105 18 146/85 (105) 95 02/19/18 00:35 99.2 107 20 122/76 (91) 96 02/18/18 23:53 97 Nasal Cannula 2.00 02/18/18 20:15 97.9 100 18 130/79 (96) 93 02/18/18 12:00 98.6 123 25 132/74 (93) 92 I/O 02/18/18 02/18/18 02/18/18 02/19/18 02/19/18 02/19/18 07:00 15:00 23:00 07:00 15:00 23:00 Intake Total 420 ml Output Total 150 ml 300 ml Balance 420 ml -150 ml -300 ml Intake Oral 420 ml Output Urine Total 150 ml 300 ml Bladder Scan Volume Amount 10 ml 2 ml 123 ml 16 ml 275 ml # Voids 0 # Bowel Movements 0 Result Diagram: 02/19/18 0336 02/19/18 033 Other Results Laboratory Tests Test 02/19/18 03:36 Prothromb Time International Ratio 1.2 RATIO Prothrombin Time 12.3 SEC (9.8-11.6) Imaging Last 24 hours Impressions Thoracic Spine CT 01/22/18337 Signed Impressions: Service Date/Time: Monday, January 22, 2018 04:05 - CONCLUSION: Nondisplaced right transverse process fracture of T1. Mickey Kline MD Pelvis X-Ray 01/22/18337 Signed Impressions: Service Date/Time: Monday, January 22, 2018 03:26 - CONCLUSION: Comminuted and medially displaced fracture of the right acetabulum. Also a minimally displaced fracture of the left pubic bone. Mickey Kline MD Lumbar Spine CT 01/22/18337 Signed Impressions: Service Date/Time: Monday, January 22, 2018 04:05 - CONCLUSION: Intact lumbar spine. Mickey Kline MD Head CT 01/22/18337 Signed Impressions: Service Date/Time: Monday, January 22, 2018 03:59 - CONCLUSION: No bleed or other acute intracranial abnormality. Mickey Kline MD Chest X-Ray 4/16/18 0338 Signed Impressions: Service Date/Time: Monday, January 22, 2018 03:26 - CONCLUSION: 1. Small bilateral pneumothoraces. 2. Right rib fractures. 3. Nasogastric tube doubled back on itself within the esophagus. 4. Appropriate position of the endotracheal tube. Mickey Kline MD Chest CT 01/22/188 Signed Impressions: Service Date/Time: Monday, January 22, 2018 04:05 - CONCLUSION: 1. Tiny left pneumothorax. Chest tube in place. 2. Small right pneumothorax and a right lower lobe pulmonary contusion and a tiny right hemothorax. 3. Nondisplaced fractures posteriorly and laterally of the right second and third ribs. Mickey Kline MD Cervical Spine CT 01/22/18337 Signed Impressions: Service Date/Time: Monday, January 22, 2018 03:59 - CONCLUSION: Intact cervical spine. Mickey Kline MD Abdomen/Pelvis CT 01/22/18337 Signed Impressions: Service Date/Time: Monday, January 22, 2018 04:05 - CONCLUSION: 1. Low-grade subcapsular lacerations of the liver down without active bleeding. 2. Comminuted laceration of the spleen with a small hematoma. No active bleeding demonstrated. 3. Comminuted and displaced fracturing of the right acetabulum with a large pelvic hematoma and a focus of slow, active bleeding. 4. Minimally displaced fracture of the right side of the sacrum. 5. Nondisplaced fracture of the left pubic bone. Mickey Kline MD Tibia/Fibula X-Ray 01/22/18 0000 Signed Impressions: Service Date/Time: Monday, January 22, 2018 03:26 - CONCLUSION: Comminuted lateral tibial plateau fracture and minimally displaced fractures of the proximal and distal fibula. Mickey Kline MD Tibia/Fibula X-Ray 01/22/18 0000 Signed Impressions: Service Date/Time: Monday, January 22, 2018 03:26 - CONCLUSION: Grossly intact right tibia and fibula. Mickey Kline MD Radius/Ulna X-Ray 01/22/18 0000 Signed Impressions: Service Date/Time: Monday, January 22, 2018 03:26 - CONCLUSION: Comminuted and mildly displaced proximal shaft fracture of the ulna. Mickey Kline MD Femur X-Ray 01/22/18 0000 Signed Impressions: Service Date/Time: Monday, January 22, 2018 03:26 - CONCLUSION: Femur is grossly intact. Mickey Kline MD Objective Remarks RLE: dressings clean and dry. intact. +drain. +CKS. +short leg splint. Sensation knee. Good capillary refills distally but no sensation of toes or movement LLE: dressings clean and dry. intact. +CKS. +short leg splint. splint removed and incisions visualized. healing well. no drainage. LUE: dressings clean and dry. intact. Assessment & Plan Assessment and Plan 1) Right Acetabulum fx with femoral head dislocation s/p ORIF - POD 13 (02/06/18) 2) Multiple Pelvis Fxs 3) Left Open Tibial tubercle and proximal tibia Fx s/p I&D and wound closure - nonop 4) Left Ulna Fx s/p ORIF - POD 27 (01/23/18) 5) Left Ankle Fx s/p ORIF - POD 27 (01/23/18) 6) Right Patella Fx s/p ORIF - POD 9 (02/10/18) 7) Left PCL rupture 8) Right Talus and navicular fx of ankle with fxs of MT heads 2-5 s/p ORIF and pinning - POD 9 (02/10/18) maintain bilateral lower leg splints and knee braces NWB BLE No motion to either knee daily dressing changes of pelvis all ortho surgeries complete at this time X-rays will be ordered today Maverick Pompa Jr. February 19, 2018 08:56
[2018-02-19] MEDS: METOPROLOL TARTRATE 50 MG TAB PO SCH ×2 (08:57→21:05)
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
[2018-02-19] MEDS ORDERED: LIDOCAINE HCL 1% 20 ML VIAL ONE (11:24)
[2018-02-19] MEDS ORDERED: MIDAZOLAM HCL 5 MG/5 ML VIAL ONE (12:02)
[2018-02-19] MEDS ORDERED: fentaNYL CITRATE 250 MCG/5 ML AMP ONE (12:02)
--- NOTE | 2018-02-19 12:45 | PD.RAD ---
Post Procedure Progress Note Pre Procedure Diagnosis: (1) Renal failure Post Procedure Diagnosis: (1) Renal failure Procedure Date: February 19, 2018 Supervising Radiologist: Tyler Diehl Estimated blood loss: none Anesthesia: Local, Conscious Sedation Plan of Activity Patient to Unit: ROPU Patient Condition: Fair Additional Comments: Successful right renal biopsy X 2 18ga core samples sent to pathology Full dictated report to follow See PACS Report for procedural detail/treatment Tyler Diehl MD February 19, 2018 12:44
--- NOTE | 2018-02-19 13:07 | RADRPT ---
EXAM DATE/TIME: 02/19/2018 12:19 [place] COMPARISON: CT ANKLE RIGHT W/O CONTRAST, February 07, 2018, 11:38. INDICATIONS : Interstitial nephritis SEDATION TIME: 40 minutes BIOPSY SITE: Right Renal MEDICATION(S): 1.) 3 mg midazolam (Versed) IV 2.) 150 mcg fentanyl (Sublimaze) DEVICE(S): 1.) 18 gauge Temno core biopsy needle MEDICAL HISTORY : None. SURGICAL HISTORY : section. ENCOUNTER: Initial ACUITY: 1 day PAIN SCORE: 0/10 LOCATION: Right Renal A total of two core specimen(s) were obtained and sent to the laboratory for pathologic evaluation. PROCEDURE: 1. CT guided renal biopsy. 2. Conscious sedation with continuous EKG and oximetry monitoring. 3. EKG and oximetry remained stable throughout the procedure. Prior to the procedure informed consent was obtained. Any appropriate prior imaging studies were rev iewed. Using automated exposure control and adjustment of the mA and/or kV according to patient size, radiat ion dose was kept as low as reasonably achievable to obtain optimal diagnostic quality images. DICOM format image data is available electronically for review and comparison. The site was prepped in a sterile fashion. Full sterile technique was used, including cap, mask, gisselle rile gloves and gown and a large sterile sheet. Hand hygiene and 2% chlorhexidine and/or betadine/al cohol prep was utilized per protocol for cutaneous antisepsis. The skin and subcutaneous tissues wer e infiltrated with local anesthetic solution. With CT guidance the previously identified target was localized. Biopsy was performed using the presc ribed needle as above. Adequate hemostasis was obtained with compression at the puncture site. Follow-up CT scan reveals no hemorrhage. The patient tolerated the procedure well and there were no complications. The patient was returned to the Radiology Outpatient Unit in stable condition. CONCLUSION: Uncomplicated CT guided right renal biopsy. 18 core samples were obtained. Tyler Diehl MD on February 19, 2018 at 13:04 Board Certified Radiologist. This report was verified electronically.
[2018-02-19 13:59] LABS: AUTOMATED NEUTROPHIL # 8.3 TH/MM3 (1.8-7.7); BASOPHIL # 0.1 TH/MM3 (0-0.2); BASOPHIL % 0.7 % (0.0-2.0); EOSINOPHIL # 1.2 TH/MM3 (0-0.4); EOSINOPHIL % 10.1 % (0.0-4.0); HEMATOCRIT 28.6 % (35.0-46.0); HEMOGLOBIN 9.5 GM/DL (11.6-15.3); LYMPH % 10.7 % (9.0-44.0); LYMPHOCYTE # 1.3 TH/MM3 (1.0-4.8); MEAN CELL VOLUME 91.5 FL (80.0-100.0); MEAN CORPUSCULAR HEMOGLOBIN 30.3 PG (27.0-34.0); MEAN CORPUSCULAR HGB CONC 33.2 % (32.0-36.0); MEAN PLATELET VOLUME 8.1 FL (7.0-11.0); MONO % 7.4 % (0.0-8.0); MONOCYTE # 0.9 TH/MM3 (0-0.9); NEUT % 71.1 % (16.0-70.0); PLATELET COUNT 328 TH/MM3 (150-450); RED BLOOD COUNT 3.12 MIL/MM3 (4.00-5.30); RED CELL DISTRIBUTION WIDTH 16.1 % (11.6-17.2); WHITE BLOOD COUNT 11.7 TH/MM3 (4.0-11.0)
[2018-02-19 15:08] LABS: AUTOMATED NEUTROPHIL # 7.9 TH/MM3 (1.8-7.7); BASOPHIL # 0.1 TH/MM3 (0-0.2); BASOPHIL % 0.9 % (0.0-2.0); EOSINOPHIL # 1.2 TH/MM3 (0-0.4); EOSINOPHIL % 10.3 % (0.0-4.0); HEMATOCRIT 26.4 % (35.0-46.0); HEMOGLOBIN 8.7 GM/DL (11.6-15.3); LYMPH % 12.7 % (9.0-44.0); LYMPHOCYTE # 1.5 TH/MM3 (1.0-4.8); MEAN CELL VOLUME 93.2 FL (80.0-100.0); MEAN CORPUSCULAR HEMOGLOBIN 30.6 PG (27.0-34.0); MEAN CORPUSCULAR HGB CONC 32.8 % (32.0-36.0); MEAN PLATELET VOLUME 8.1 FL (7.0-11.0); MONO % 8.8 % (0.0-8.0); NEUT % 67.3 % (16.0-70.0); PLATELET COUNT 318 TH/MM3 (150-450); RED BLOOD COUNT 2.84 MIL/MM3 (4.00-5.30); RED CELL DISTRIBUTION WIDTH 16.3 % (11.6-17.2); WHITE BLOOD COUNT 11.8 TH/MM3 (4.0-11.0)
[2018-02-19] MEDS: traZODone HCL 50 MG TAB PO SCH (21:06)
[2018-02-19] MEDS: RESP: ALBUTEROL 2.5 MG/IPRATROPIUM 0.5 MG NEB (PRN) NEB (21:24)
[2018-02-20] VITALS (7 sets, daily range): BP systolic 115–137; BP diastolic 61–84; PULSE 95–117; RESP 16–20; TEMP 97.7–98.8; O2SAT 90–100
[2018-02-20] MEDS: ALPRAZolam 0.25 MG TAB PO PRN ×3 (02:08→21:02)
[2018-02-20] MEDS: CHLORHEXIDINE GLUCONATE 2 % 1 PACK (2 CLOTHS) TOP SCH (02:08)
[2018-02-20] MEDS: RESP: ALBUTEROL 2.5 MG/IPRATROPIUM 0.5 MG NEB (SCH) NEB ×7 (02:15→20:21)
[2018-02-20] MEDS: HEPARIN SODIUM - SQ 10,000 UNITS/ML VIAL SQ SCH ×3 (05:49→21:02)
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
[2018-02-20] MEDS ORDERED: LORazepam 2 MG/ML VIAL IV PUSH ONE (06:45)
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
[2018-02-20] MEDS: FAMOTIDINE 20 MG TAB PO SCH ×2 (08:45→21:01)
[2018-02-20] MEDS: DOCUSATE SODIUM 50 MG/SENNA 8.6 MG TAB PO SCH ×2 (08:45→21:01)
[2018-02-20] MEDS: MAGNESIUM HYDROXIDE SUSP 30 ML CUP PO SCH ×2 (08:45→21:00)
[2018-02-20] MEDS: METOPROLOL TARTRATE 50 MG TAB PO SCH ×2 (08:45→21:01)
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
[2018-02-20] MEDS: GENTAMICIN SULFATE 20 MG/2 ML VIAL OTHER PRN (09:32)
[2018-02-20] MEDS: HEPARIN SODIUM - IV 10,000 UNITS/10 ML VIAL PRN (09:32)
[2018-02-20] MEDS: EPOETIN ALFA 10,000 UNITS/ML VIAL IV PUSH PRN (09:33)
[2018-02-20] MEDS ORDERED: REMOVE OLD DURAGESIC (FENTANYL) PATCH T-DERMAL SCH (11:00)
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
[2018-02-20] MEDS: fentaNYL 50 MCG/HR PATCH T-DERMAL SCH (12:15)
[2018-02-20] MEDS: ACETAMINOPHEN/HYDROcodone 325 MG/7.5 MG TAB PO PRN ×2 (12:15→15:42)
[2018-02-20] MEDS: MORPHINE SULFATE 4 MG/ML INJ IV PUSH PRN (16:37)
[2018-02-20] MEDS ORDERED: oxyCODONE/ACETAMINOPHEN 5 MG/325 MG TAB PO PRN (17:00)
[2018-02-20] MEDS: oxyCODONE/ACETAMINOPHEN 7.5 MG/325 MG TAB PO PRN ×2 (17:59→23:24)
[2018-02-20] MEDS: GABAPENTIN 100 MG CAP PO SCH (17:59)
[2018-02-20] MEDS: traZODone HCL 50 MG TAB PO SCH (21:01)
[2018-02-21] VITALS (10 sets, daily range): BP systolic 118–140; BP diastolic 65–90; PULSE 96–118; RESP 18–19; TEMP 97.2–99.1; O2SAT 92–99
[2018-02-21] MEDS: RESP: ALBUTEROL 2.5 MG/IPRATROPIUM 0.5 MG NEB (SCH) NEB ×2 (00:15→03:22)
[2018-02-21] MEDS: MORPHINE SULFATE 4 MG/ML INJ IV PUSH PRN ×7 (04:30→21:53)
[2018-02-21] MEDS: ALPRAZolam 0.25 MG TAB PO PRN ×3 (05:00→21:52)
[2018-02-21 05:06] LABS: HEMATOCRIT 26.5 % (35.0-46.0); HEMOGLOBIN 8.8 GM/DL (11.6-15.3); MEAN CELL VOLUME 90.9 FL (80.0-100.0); MEAN CORPUSCULAR HEMOGLOBIN 30.3 PG (27.0-34.0); MEAN CORPUSCULAR HGB CONC 33.3 % (32.0-36.0); MEAN PLATELET VOLUME 7.9 FL (7.0-11.0); PLATELET COUNT 297 TH/MM3 (150-450); RED BLOOD COUNT 2.92 MIL/MM3 (4.00-5.30); RED CELL DISTRIBUTION WIDTH 15.8 % (11.6-17.2); WHITE BLOOD COUNT 9.5 TH/MM3 (4.0-11.0)
[2018-02-21] MEDS: oxyCODONE/ACETAMINOPHEN 7.5 MG/325 MG TAB PO PRN ×4 (05:20→19:20)
[2018-02-21] MEDS: HEPARIN SODIUM - SQ 10,000 UNITS/ML VIAL SQ SCH ×3 (05:21→22:00)
[2018-02-21 05:30] LABS: ALBUMIN 2.1 GM/DL (3.4-5.0); BICARBONATE 28.8 MEQ/L (21.0-32.0); CALCIUM 8.3 MG/DL (8.5-10.1); CREATININE 3.48 MG/DL (0.50-1.00); PHOSPHORUS 4.1 MG/DL (2.5-4.9)
[2018-02-21] MEDS: DOCUSATE SODIUM 50 MG/SENNA 8.6 MG TAB PO SCH ×2 (08:56→21:52)
[2018-02-21] MEDS: GABAPENTIN 100 MG CAP PO SCH ×3 (08:56→18:07)
[2018-02-21] MEDS: FAMOTIDINE 20 MG TAB PO SCH ×2 (08:56→21:52)
[2018-02-21] MEDS: MAGNESIUM HYDROXIDE SUSP 30 ML CUP PO SCH ×2 (08:56→21:52)
[2018-02-21] MEDS: METOPROLOL TARTRATE 50 MG TAB PO SCH ×2 (08:56→21:52)
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
[2018-02-21] MEDS ORDERED: LACTULOSE SYRUP 20 GM/30 ML CUP PO ONE (10:30)
--- NOTE | 2018-02-21 12:09 | RADRPT ---
EXAM DATE/TIME: 02/21/2018 10:59 [facility] COMPARISON: CT HIP RIGHT W/O CONTRAST, January 23, 2018, 10:45. HIP RIGHT AP ONLY WO AP PELVIS, February 06, 2018, 14:4 1. INDICATIONS : Evaluate right acetabulum fracture. MEDICAL HISTORY : None. SURGICAL HISTORY : ORIF right acetabulum, right ankle, right patella, left ankle, and left wrist. ENCOUNTER: Subsequent ACUITY: 1 week PAIN SCORE: 10/10 LOCATION: Right hip. FINDINGS: Examination of the pelvis demonstrates post surgical changes following open reduction and internal f ixation of the right acetabulum. Fixation plates and screws are identified. The acetabular roof has b een reconstructed and the fracture fragment displacement reduced. CONCLUSION: Satisfactory postoperative appearance of the right acetabulum following ORIF. Adam Beckwith MD on February 21, 2018 at 12:05 Board Certified Radiologist. This report was verified electronically.
--- NOTE | 2018-02-21 12:12 | RADRPT ---
EXAM DATE/TIME: 02/21/2018 11:03 [facility] COMPARISON: KNEE RIGHT LTD (1 OR 2 VWS), February 10, 2018, 17:19. INDICATIONS : Evaluate right patella fracture. MEDICAL HISTORY : None. SURGICAL HISTORY : ORIF right acetabulum, right ankle, right patella, left ankle, and left wrist. ENCOUNTER: Subsequent ACUITY: 1 week PAIN SCORE: 7/10 LOCATION: Right knee. FINDINGS: Two view examination of the right knee demonstrates postsurgical changes following open reduction and internal fixation of a comminuted right patellar fracture. Compared to the immediate postoperative r adiographs of a fracture fragment along the superior margin of the patella has been displaced interna lly. CONCLUSION: Patellar fracture fragment displacement which is not initially identified on the postoperative radiog raphs. Adam Beckwith MD on February 21, 2018 at 12:08 Board Certified Radiologist. This report was verified electronically.
--- NOTE | 2018-02-21 12:15 | RADRPT ---
EXAM DATE/TIME: 02/21/2018 11:05 [facility] COMPARISON: FOOT RIGHT COMPLETE ([id number]), February 07, 2018, 19:23. INDICATIONS : Evaluate right foot fractures. MEDICAL HISTORY : None. SURGICAL HISTORY : ORIF right acetabulum, right ankle, right patella, left ankle, and left wrist. ENCOUNTER: Subsequent ACUITY: 1 week PAIN SCORE: 7/10 LOCATION: Right foot. FINDINGS: Three view examination of the right foot demonstrates post surgical changes following open reduction and pinning of displaced fractures involving the second, third and fourth phalanges and metatarsals. There are pins extending through the second third and fourth metatarsals.. The fracture dislocation o f the metatarsal phalangeal joints has been reduced. Fracture distal left fifth metatarsal is again n oted. Additionally a fixation plate is noted in the mid foot bridging the talus and navicular tarsal bone. CONCLUSION: Status post ORIF of the right foot involving the metatarsophalangeal joints and the mid foot as descr ibed. Adam Beckwith MD on February 21, 2018 at 12:10 Board Certified Radiologist. This report was verified electronically.
[2018-02-21] MEDS: LACTULOSE SYRUP 20 GM/30 ML CUP PO SCH ×2 (18:30→19:20)
[2018-02-21] MEDS: traZODone HCL 50 MG TAB PO SCH (21:52)
[2018-02-22] VITALS: BP 109/69; PULSE 101; RESP 20; TEMP 100.5; O2SAT 96
[2018-02-22] MEDS: ACETAMINOPHEN 325 MG TAB PO PRN (00:58)
[2018-02-22] MEDS: MORPHINE SULFATE 4 MG/ML INJ IV PUSH PRN ×5 (02:08→18:13)
[2018-02-22 04:00] VITALS: BP 125/69; PULSE 70; RESP 20; TEMP 98.8; O2SAT 100
[2018-02-22] MEDS: oxyCODONE/ACETAMINOPHEN 7.5 MG/325 MG TAB PO PRN ×3 (05:24→20:23)
[2018-02-22] MEDS: HEPARIN SODIUM - SQ 10,000 UNITS/ML VIAL SQ SCH ×3 (07:29→21:24)
[2018-02-22 08:03] VITALS: BP 127/67; PULSE 104; RESP 18; TEMP 98.6; O2SAT 93
[2018-02-22] MEDS: ALPRAZolam 0.25 MG TAB PO PRN ×2 (08:07→20:21)
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
[2018-02-22] MEDS: LACTULOSE SYRUP 20 GM/30 ML CUP PO SCH (09:00)
[2018-02-22] MEDS: MAGNESIUM HYDROXIDE SUSP 30 ML CUP PO SCH ×2 (09:56→20:21)
[2018-02-22] MEDS: DOCUSATE SODIUM 50 MG/SENNA 8.6 MG TAB PO SCH ×2 (09:56→20:21)
[2018-02-22] MEDS: GENTAMICIN SULFATE 20 MG/2 ML VIAL OTHER PRN (10:07)
[2018-02-22] MEDS: EPOETIN ALFA 10,000 UNITS/ML VIAL IV PUSH PRN (10:07)
[2018-02-22 12:02] VITALS: BP 136/81; PULSE 110; RESP 17; TEMP 98.5; O2SAT 95
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
[2018-02-22] MEDS ORDERED: KETOROLAC TROMETHAMINE 30 MG/ML (IVP) VIAL IV PUSH ONE (12:15)
[2018-02-22] MEDS: GABAPENTIN 100 MG CAP PO SCH ×2 (12:50→21:21)
[2018-02-22] MEDS: METOPROLOL TARTRATE 50 MG TAB PO SCH ×2 (12:50→20:24)
[2018-02-22] MEDS: FAMOTIDINE 20 MG TAB PO SCH ×2 (12:51→20:22)
[2018-02-22] MEDS: REMOVE OLD DURAGESIC (FENTANYL) PATCH T-DERMAL SCH (13:00)
[2018-02-22] MEDS: fentaNYL 75 MCG/HR PATCH T-DERMAL SCH (14:51)
[2018-02-22 15:18] LABS: BICARBONATE 31.5 MEQ/L (21.0-32.0); CALCIUM 8.1 MG/DL (8.5-10.1); CREATININE 2.8 MG/DL (0.50-1.00)
[2018-02-22 15:48] VITALS: BP 110/63; PULSE 84; RESP 18; TEMP 98; O2SAT 97
[2018-02-22 20:00] VITALS: BP 117/66; PULSE 95; RESP 18; TEMP 97.7; O2SAT 95
[2018-02-22] MEDS: traZODone HCL 50 MG TAB PO SCH (20:21)
[2018-02-23] VITALS (7 sets, daily range): BP systolic 118–143; BP diastolic 59–84; PULSE 82–105; RESP 16–19; TEMP 97.5–98.9; O2SAT 94–98
[2018-02-23] MEDS: oxyCODONE/ACETAMINOPHEN 7.5 MG/325 MG TAB PO PRN ×2 (04:37→08:37)
[2018-02-23] MEDS: ALPRAZolam 0.25 MG TAB PO PRN ×2 (04:42→19:53)
[2018-02-23 05:07] LABS: HEMATOCRIT 26.9 % (35.0-46.0); MEAN CELL VOLUME 91.6 FL (80.0-100.0); MEAN CORPUSCULAR HEMOGLOBIN 30.7 PG (27.0-34.0); MEAN CORPUSCULAR HGB CONC 33.5 % (32.0-36.0); MEAN PLATELET VOLUME 8.1 FL (7.0-11.0); PLATELET COUNT 349 TH/MM3 (150-450); RED BLOOD COUNT 2.93 MIL/MM3 (4.00-5.30); RED CELL DISTRIBUTION WIDTH 16.2 % (11.6-17.2); WHITE BLOOD COUNT 7.8 TH/MM3 (4.0-11.0)
[2018-02-23] MEDS: MORPHINE SULFATE 4 MG/ML INJ IV PUSH PRN ×3 (05:29→18:50)
[2018-02-23] MEDS: GABAPENTIN 100 MG CAP PO SCH ×3 (05:29→19:53)
[2018-02-23] MEDS: HEPARIN SODIUM - SQ 10,000 UNITS/ML VIAL SQ SCH ×3 (05:30→23:39)
[2018-02-23 05:31] LABS: ALBUMIN 2.2 GM/DL (3.4-5.0); BICARBONATE 30.8 MEQ/L (21.0-32.0); CALCIUM 8.6 MG/DL (8.5-10.1); CREATININE 3.19 MG/DL (0.50-1.00); PHOSPHORUS 3.9 MG/DL (2.5-4.9)
[2018-02-23] MEDS: DOCUSATE SODIUM 50 MG/SENNA 8.6 MG TAB PO SCH ×2 (10:31→19:52)
[2018-02-23] MEDS: LACTULOSE SYRUP 20 GM/30 ML CUP PO SCH (10:31)
[2018-02-23] MEDS: FAMOTIDINE 20 MG TAB PO SCH ×2 (10:31→19:53)
[2018-02-23] MEDS: MAGNESIUM HYDROXIDE SUSP 30 ML CUP PO SCH ×2 (10:31→19:52)
[2018-02-23] MEDS: METOPROLOL TARTRATE 50 MG TAB PO SCH ×2 (10:31→19:53)
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
[2018-02-23] MEDS: oxyCODONE/ACETAMINOPHEN 10 MG/325 MG TAB PO PRN ×2 (17:50→20:45)
[2018-02-23] MEDS: traZODone HCL 50 MG TAB PO SCH (19:53)
[2018-02-24] VITALS (7 sets, daily range): BP systolic 117–138; BP diastolic 64–87; PULSE 76–97; RESP 16–20; TEMP 97–98.2; O2SAT 96–100
[2018-02-24] MEDS: oxyCODONE/ACETAMINOPHEN 10 MG/325 MG TAB PO PRN ×7 (04:13→22:34)
[2018-02-24] MEDS: HEPARIN SODIUM - SQ 10,000 UNITS/ML VIAL SQ SCH ×3 (05:30→20:33)
[2018-02-24] MEDS: GABAPENTIN 100 MG CAP PO SCH ×3 (05:30→20:33)
[2018-02-24] MEDS: MORPHINE SULFATE 4 MG/ML INJ IV PUSH PRN (05:31)
[2018-02-24 08:30] LABS: HEMATOCRIT 30.1 % (35.0-46.0); HEMOGLOBIN 9.7 GM/DL (11.6-15.3); MEAN CELL VOLUME 91.8 FL (80.0-100.0); MEAN CORPUSCULAR HEMOGLOBIN 29.7 PG (27.0-34.0); MEAN CORPUSCULAR HGB CONC 32.3 % (32.0-36.0); MEAN PLATELET VOLUME 8.3 FL (7.0-11.0); PLATELET COUNT 407 TH/MM3 (150-450); RED BLOOD COUNT 3.28 MIL/MM3 (4.00-5.30); RED CELL DISTRIBUTION WIDTH 15.9 % (11.6-17.2); WHITE BLOOD COUNT 8.2 TH/MM3 (4.0-11.0)
[2018-02-24] MEDS: METOPROLOL TARTRATE 50 MG TAB PO SCH ×2 (08:33→20:25)
[2018-02-24] MEDS: ALPRAZolam 0.25 MG TAB PO PRN ×2 (08:34→16:20)
[2018-02-24] MEDS: FAMOTIDINE 20 MG TAB PO SCH ×2 (08:34→20:25)
[2018-02-24] MEDS: LACTULOSE SYRUP 20 GM/30 ML CUP PO SCH (08:35)
[2018-02-24] MEDS: MAGNESIUM HYDROXIDE SUSP 30 ML CUP PO SCH ×2 (08:36→20:25)
[2018-02-24] MEDS: DOCUSATE SODIUM 50 MG/SENNA 8.6 MG TAB PO SCH ×2 (08:36→20:25)
[2018-02-24 08:48] LABS: ALBUMIN 2.4 GM/DL (3.4-5.0); CALCIUM 8.6 MG/DL (8.5-10.1); CREATININE 3.67 MG/DL (0.50-1.00)
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
[2018-02-24] MEDS ORDERED: PERI PO (20:15)
[2018-02-24] MEDS ORDERED: MAGN30S PO (20:15)
[2018-02-24] MEDS: traZODone HCL 50 MG TAB PO SCH (20:25)
[2018-02-25] VITALS: BP 112/61; PULSE 87; RESP 18; TEMP 98.1; O2SAT 93
[2018-02-25] MEDS: ALPRAZolam 0.25 MG TAB PO PRN ×3 (00:02→15:34)
[2018-02-25 04:00] VITALS: BP 123/78; PULSE 97; RESP 20; TEMP 98.1; O2SAT 95
[2018-02-25] MEDS: HEPARIN SODIUM - SQ 10,000 UNITS/ML VIAL SQ SCH ×3 (05:33→20:07)
[2018-02-25] MEDS: GABAPENTIN 100 MG CAP PO SCH ×3 (05:33→20:05)
[2018-02-25] MEDS: oxyCODONE/ACETAMINOPHEN 10 MG/325 MG TAB PO PRN ×2 (05:34→08:06)
[2018-02-25] MEDS: LACTULOSE SYRUP 20 GM/30 ML CUP PO SCH (07:35)
[2018-02-25] MEDS: MAGNESIUM HYDROXIDE SUSP 30 ML CUP PO SCH ×2 (07:35→20:07)
[2018-02-25] MEDS: DOCUSATE SODIUM 50 MG/SENNA 8.6 MG TAB PO SCH ×2 (07:35→20:06)
[2018-02-25 08:00] VITALS: BP 133/70; PULSE 94; RESP 16; TEMP 98; O2SAT 98
[2018-02-25] MEDS: METOPROLOL TARTRATE 50 MG TAB PO SCH ×2 (08:06→20:05)
[2018-02-25] MEDS: FAMOTIDINE 20 MG TAB PO SCH ×2 (08:06→20:05)
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
[2018-02-25 09:01] LABS: HEMATOCRIT 28.2 % (35.0-46.0); HEMOGLOBIN 9.5 GM/DL (11.6-15.3); MEAN CELL VOLUME 91.7 FL (80.0-100.0); MEAN CORPUSCULAR HEMOGLOBIN 30.7 PG (27.0-34.0); MEAN CORPUSCULAR HGB CONC 33.5 % (32.0-36.0); MEAN PLATELET VOLUME 7.8 FL (7.0-11.0); PLATELET COUNT 459 TH/MM3 (150-450); RED BLOOD COUNT 3.08 MIL/MM3 (4.00-5.30); RED CELL DISTRIBUTION WIDTH 16.4 % (11.6-17.2); WHITE BLOOD COUNT 10.5 TH/MM3 (4.0-11.0)
[2018-02-25 09:25] LABS: ALBUMIN 2.4 GM/DL (3.4-5.0); CALCIUM 8.7 MG/DL (8.5-10.1); CREATININE 3.7 MG/DL (0.50-1.00)
[2018-02-25 09:26] LABS: PHOSPHORUS 4.9 MG/DL (2.5-4.9)
[2018-02-25] MEDS: HYDROmorphone HCL 2 MG TAB PO PRN ×3 (10:37→20:07)
[2018-02-25] MEDS: REMOVE OLD DURAGESIC (FENTANYL) PATCH T-DERMAL SCH (13:00)
[2018-02-25] MEDS: fentaNYL 75 MCG/HR PATCH T-DERMAL SCH (14:41)
[2018-02-25 16:00] VITALS: BP 125/67; PULSE 107; RESP 16; TEMP 98; O2SAT 95
[2018-02-25 19:55] VITALS: BP 127/67; PULSE 100; RESP 18; TEMP 98; O2SAT 95
[2018-02-25] MEDS: traZODone HCL 50 MG TAB PO SCH (20:05)
[2018-02-25] MEDS: SODIUM CHLORIDE 0.9% FLUSH 10 ML FLUSH IV FLUSH PRN (20:07)
[2018-02-26 00:15] VITALS: BP 118/64; PULSE 93; RESP 18; TEMP 98.2; O2SAT 96
[2018-02-26] MEDS: HYDROmorphone HCL 2 MG TAB PO PRN ×4 (01:23→13:25)
[2018-02-26] MEDS: ALPRAZolam 0.25 MG TAB PO PRN ×3 (04:52→21:35)
[2018-02-26] MEDS: GABAPENTIN 100 MG CAP PO SCH ×3 (04:52→21:35)
[2018-02-26] MEDS: HEPARIN SODIUM - SQ 10,000 UNITS/ML VIAL SQ SCH ×3 (04:52→21:36)
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
[2018-02-26 08:00] VITALS: BP 130/62; PULSE 99; RESP 18; TEMP 98.6; O2SAT 95
[2018-02-26 08:45] LABS: HEMATOCRIT 30.1 % (35.0-46.0); HEMOGLOBIN 9.8 GM/DL (11.6-15.3); MEAN CELL VOLUME 91.5 FL (80.0-100.0); MEAN CORPUSCULAR HEMOGLOBIN 29.8 PG (27.0-34.0); MEAN CORPUSCULAR HGB CONC 32.6 % (32.0-36.0); MEAN PLATELET VOLUME 7.4 FL (7.0-11.0); PLATELET COUNT 467 TH/MM3 (150-450); RED BLOOD COUNT 3.29 MIL/MM3 (4.00-5.30); RED CELL DISTRIBUTION WIDTH 16.5 % (11.6-17.2)
[2018-02-26] MEDS: MAGNESIUM HYDROXIDE SUSP 30 ML CUP PO SCH ×2 (09:00→20:02)
[2018-02-26] MEDS: LACTULOSE SYRUP 20 GM/30 ML CUP PO SCH (09:00)
[2018-02-26 09:14] LABS: ALBUMIN 2.4 GM/DL (3.4-5.0); BICARBONATE 25.7 MEQ/L (21.0-32.0); CREATININE 3.05 MG/DL (0.50-1.00); PHOSPHORUS 5.9 MG/DL (2.5-4.9)
[2018-02-26] MEDS: FAMOTIDINE 20 MG TAB PO SCH ×2 (09:20→20:02)
[2018-02-26] MEDS: METOPROLOL TARTRATE 50 MG TAB PO SCH ×2 (09:21→20:02)
[2018-02-26] MEDS: DOCUSATE SODIUM 50 MG/SENNA 8.6 MG TAB PO SCH ×2 (09:21→20:02)
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
[2018-02-26 11:45] VITALS: PULSE 80
[2018-02-26 12:00] VITALS: BP 130/82; PULSE 78; RESP 18; TEMP 98.2; O2SAT 94
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
[2018-02-26 15:58] VITALS: BP 113/55; PULSE 92; RESP 18; TEMP 98.8; O2SAT 95
[2018-02-26] MEDS: HYDROmorphone HCL 4 MG TAB PO PRN ×2 (17:06→21:36)
[2018-02-26 20:00] VITALS: BP 131/73; PULSE 92; RESP 18; TEMP 98.1; O2SAT 99
[2018-02-26] MEDS: traZODone HCL 50 MG TAB PO SCH (20:02)
[2018-02-27] VITALS: BP 102/55; PULSE 90; RESP 17; TEMP 99.3; O2SAT 95
[2018-02-27] MEDS: HYDROmorphone HCL 4 MG TAB PO PRN ×5 (01:37→19:12)
[2018-02-27 04:00] VITALS: BP 114/73; PULSE 86; RESP 17; TEMP 99.1; O2SAT 95
[2018-02-27] MEDS: HEPARIN SODIUM - SQ 10,000 UNITS/ML VIAL SQ SCH ×3 (06:20→20:34)
[2018-02-27] MEDS: GABAPENTIN 100 MG CAP PO SCH ×3 (06:20→20:33)
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
[2018-02-27 06:55] LABS: HEMATOCRIT 25.7 % (35.0-46.0); HEMOGLOBIN 8.4 GM/DL (11.6-15.3); MEAN CELL VOLUME 90.7 FL (80.0-100.0); MEAN CORPUSCULAR HEMOGLOBIN 29.7 PG (27.0-34.0); MEAN CORPUSCULAR HGB CONC 32.8 % (32.0-36.0); MEAN PLATELET VOLUME 7.5 FL (7.0-11.0); PLATELET COUNT 423 TH/MM3 (150-450); RED BLOOD COUNT 2.83 MIL/MM3 (4.00-5.30); RED CELL DISTRIBUTION WIDTH 16.3 % (11.6-17.2); WHITE BLOOD COUNT 7.7 TH/MM3 (4.0-11.0)
[2018-02-27 07:23] LABS: ALBUMIN 2.4 GM/DL (3.4-5.0); BICARBONATE 28.2 MEQ/L (21.0-32.0); CALCIUM 8.9 MG/DL (8.5-10.1); CREATININE 2.4 MG/DL (0.50-1.00)
[2018-02-27 07:24] LABS: PHOSPHORUS 5.4 MG/DL (2.5-4.9)
[2018-02-27 08:00] VITALS: BP 134/67; PULSE 92; RESP 16; TEMP 97.6; O2SAT 96
[2018-02-27] MEDS: LACTULOSE SYRUP 20 GM/30 ML CUP PO SCH (09:03)
[2018-02-27] MEDS: METOPROLOL TARTRATE 50 MG TAB PO SCH ×2 (09:04→20:34)
[2018-02-27] MEDS: DOCUSATE SODIUM 50 MG/SENNA 8.6 MG TAB PO SCH ×2 (09:04→20:34)
[2018-02-27] MEDS: FAMOTIDINE 20 MG TAB PO SCH ×2 (09:04→20:33)
[2018-02-27] MEDS: MAGNESIUM HYDROXIDE SUSP 30 ML CUP PO SCH ×2 (09:04→20:35)
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
[2018-02-27] MEDS: ALPRAZolam 0.25 MG TAB PO PRN ×2 (11:53→20:34)
[2018-02-27 12:00] VITALS: BP 133/73; PULSE 87; RESP 16; TEMP 98.3; O2SAT 100
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
[2018-02-27 12:34] LABS: % SATURATION IRON PROFILE 17.9 % (20-50); IRON (FE) 28 MCG/DL (50-170); TOTAL IRON BINDING CAPACITY 157 MCG/DL (250-450)
[2018-02-27 12:38] LABS: FERRITIN 1011 NG/ML (8-252)
[2018-02-27] MEDS: MORPHINE SULFATE 4 MG/ML INJ IV PUSH PRN (15:05)
[2018-02-27 16:00] VITALS: BP 133/76; PULSE 88; RESP 16; TEMP 98.2; O2SAT 100
[2018-02-27 20:00] VITALS: BP 147/86; PULSE 108; RESP 19; TEMP 99.1; O2SAT 99
[2018-02-27] MEDS: traZODone HCL 50 MG TAB PO SCH (20:33)
[2018-02-28] VITALS (7 sets, daily range): BP systolic 110–156; BP diastolic 63–87; PULSE 79–109; RESP 18–19; TEMP 97.6–99.8; O2SAT 96–100
[2018-02-28] MEDS: HYDROmorphone HCL 4 MG TAB PO PRN ×6 (00:16→23:45)
[2018-02-28] MEDS: HEPARIN SODIUM - SQ 10,000 UNITS/ML VIAL SQ SCH ×3 (05:09→20:07)
[2018-02-28] MEDS: GABAPENTIN 100 MG CAP PO SCH ×3 (05:09→20:05)
[2018-02-28] MEDS: ALPRAZolam 0.25 MG TAB PO PRN ×3 (06:17→20:06)
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
[2018-02-28 07:34] LABS: HEMATOCRIT 26.3 % (35.0-46.0); HEMOGLOBIN 8.6 GM/DL (11.6-15.3); MEAN CELL VOLUME 91.8 FL (80.0-100.0); MEAN CORPUSCULAR HEMOGLOBIN 30.1 PG (27.0-34.0); MEAN CORPUSCULAR HGB CONC 32.7 % (32.0-36.0); MEAN PLATELET VOLUME 7.9 FL (7.0-11.0); PLATELET COUNT 439 TH/MM3 (150-450); RED BLOOD COUNT 2.87 MIL/MM3 (4.00-5.30); RED CELL DISTRIBUTION WIDTH 16.2 % (11.6-17.2); WHITE BLOOD COUNT 7.3 TH/MM3 (4.0-11.0)
[2018-02-28 07:55] LABS: ALBUMIN 2.4 GM/DL (3.4-5.0); BICARBONATE 28.9 MEQ/L (21.0-32.0); CALCIUM 9.2 MG/DL (8.5-10.1); CREATININE 2.05 MG/DL (0.50-1.00); PHOSPHORUS 5.1 MG/DL (2.5-4.9)
[2018-02-28] MEDS: MAGNESIUM HYDROXIDE SUSP 30 ML CUP PO SCH ×2 (08:37→20:06)
[2018-02-28] MEDS: LACTULOSE SYRUP 20 GM/30 ML CUP PO SCH (08:37)
[2018-02-28] MEDS: METOPROLOL TARTRATE 50 MG TAB PO SCH ×2 (08:38→20:06)
[2018-02-28] MEDS: DOCUSATE SODIUM 50 MG/SENNA 8.6 MG TAB PO SCH ×2 (08:38→20:05)
[2018-02-28] MEDS: FAMOTIDINE 20 MG TAB PO SCH ×2 (08:39→20:05)
[2018-02-28] MEDS: MORPHINE SULFATE 4 MG/ML INJ IV PUSH PRN (09:37)
[2018-02-28] MEDS ORDERED: DILA2TAB4 PO (11:51)
[2018-02-28] MEDS ORDERED: TRAZ50TA12 PO (11:51)
[2018-02-28] MEDS ORDERED: DILA4TAB10 PO (11:51)
[2018-02-28] MEDS ORDERED: ALPR.25 PO (11:51)
[2018-02-28] MEDS ORDERED: Lactulose Liq PO (11:51)
[2018-02-28] MEDS ORDERED: FENT75T T-DERMAL (11:51)
[2018-02-28] MEDS ORDERED: METO-309 PO (11:51)
[2018-02-28] MEDS ORDERED: Heparin Inj SQ (11:52)
[2018-02-28] MEDS: fentaNYL 75 MCG/HR PATCH T-DERMAL SCH (12:19)
[2018-02-28] MEDS: REMOVE OLD DURAGESIC (FENTANYL) PATCH T-DERMAL SCH (12:19)
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
[2018-02-28] MEDS: traZODone HCL 50 MG TAB PO SCH (20:06)
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
[2018-03-01 00:01] VITALS: BP 117/58; PULSE 98; RESP 18; TEMP 98.9; O2SAT 94
[2018-03-01] MEDS: HYDROmorphone HCL 4 MG TAB PO PRN ×6 (03:24→22:54)
[2018-03-01 04:00] VITALS: BP 125/74; PULSE 100; RESP 19; TEMP 98; O2SAT 95
[2018-03-01] MEDS: HEPARIN SODIUM - SQ 10,000 UNITS/ML VIAL SQ SCH ×3 (04:36→20:35)
[2018-03-01] MEDS: ALPRAZolam 0.25 MG TAB PO PRN ×2 (04:36→12:33)
[2018-03-01] MEDS: GABAPENTIN 100 MG CAP PO SCH ×3 (04:36→20:35)
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
[2018-03-01 08:00] VITALS: BP 133/80; PULSE 101; PULSE 91; RESP 18; TEMP 98.2; O2SAT 99
[2018-03-01] MEDS: METOPROLOL TARTRATE 50 MG TAB PO SCH ×2 (08:05→20:35)
[2018-03-01] MEDS: KETOROLAC TROMETHAMINE 30 MG/ML (IVP) VIAL IV PUSH PRN ×3 (08:05→20:34)
[2018-03-01] MEDS: DOCUSATE SODIUM 50 MG/SENNA 8.6 MG TAB PO SCH ×2 (08:05→20:35)
[2018-03-01] MEDS: LACTULOSE SYRUP 20 GM/30 ML CUP PO SCH (08:05)
[2018-03-01] MEDS: MAGNESIUM HYDROXIDE SUSP 30 ML CUP PO SCH ×2 (08:05→20:35)
[2018-03-01] MEDS: FAMOTIDINE 20 MG TAB PO SCH ×2 (08:06→20:35)
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
[2018-03-01] MEDS: FERROUS FUMARATE 325 MG TAB (106 MG ELEMENTAL IRON) PO SCH (11:15)
[2018-03-01 12:00] VITALS: BP 113/74; PULSE 69; RESP 18; TEMP 97.9; O2SAT 93
[2018-03-01 12:36] LABS: BICARBONATE 29.2 MEQ/L (21.0-32.0); CALCIUM 9.3 MG/DL (8.5-10.1); CREATININE 1.83 MG/DL (0.50-1.00)
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
[2018-03-01 16:00] VITALS: BP 124/71; PULSE 95; RESP 18; TEMP 97.9; O2SAT 100
[2018-03-01 20:00] VITALS: BP 114/70; PULSE 90; PULSE 95; RESP 18; TEMP 98.7; O2SAT 100
[2018-03-01] MEDS: traZODone HCL 50 MG TAB PO SCH (22:54)
[2018-03-02] VITALS: BP_SYST 127; BP_SYST 130; BP_DIAS 56; BP_DIAS 74; PULSE 54; PULSE 87; RESP 18; RESP 20; TEMP 97.6; TEMP 97.9; O2SAT 95; O2SAT 98
[2018-03-02 00:05] VITALS: PULSE 89
[2018-03-02 04:00] VITALS: BP 121/61; PULSE 88; PULSE 96; RESP 20; TEMP 98.4; O2SAT 96
[2018-03-02] MEDS: HYDROmorphone HCL 4 MG TAB PO PRN ×5 (04:10→20:41)
[2018-03-02] MEDS: GABAPENTIN 100 MG CAP PO SCH ×3 (04:10→21:53)
[2018-03-02] MEDS: HEPARIN SODIUM - SQ 10,000 UNITS/ML VIAL SQ SCH ×3 (04:11→21:54)
[2018-03-02 07:00] VITALS: BP 117/73; PULSE 86; RESP 15; TEMP 97.8; O2SAT 98
[2018-03-02 07:12] LABS: HEMATOCRIT 26.2 % (35.0-46.0); HEMOGLOBIN 8.7 GM/DL (11.6-15.3); MEAN CELL VOLUME 90.8 FL (80.0-100.0); MEAN PLATELET VOLUME 7.2 FL (7.0-11.0); PLATELET COUNT 427 TH/MM3 (150-450); RED BLOOD COUNT 2.89 MIL/MM3 (4.00-5.30); RED CELL DISTRIBUTION WIDTH 15.9 % (11.6-17.2); WHITE BLOOD COUNT 6.1 TH/MM3 (4.0-11.0)
[2018-03-02 07:35] LABS: ALBUMIN 2.5 GM/DL (3.4-5.0); BICARBONATE 27.9 MEQ/L (21.0-32.0); CALCIUM 8.9 MG/DL (8.5-10.1); CREATININE 1.8 MG/DL (0.50-1.00); PHOSPHORUS 5.2 MG/DL (2.5-4.9)
[2018-03-02] MEDS: METOPROLOL TARTRATE 50 MG TAB PO SCH ×2 (08:20→20:41)
[2018-03-02] MEDS: DOCUSATE SODIUM 50 MG/SENNA 8.6 MG TAB PO SCH ×2 (08:20→20:41)
[2018-03-02] MEDS: FAMOTIDINE 20 MG TAB PO SCH ×2 (08:20→20:42)
[2018-03-02] MEDS: KETOROLAC TROMETHAMINE 30 MG/ML (IVP) VIAL IV PUSH PRN ×3 (08:25→20:42)
[2018-03-02] MEDS: MAGNESIUM HYDROXIDE SUSP 30 ML CUP PO SCH ×2 (08:34→20:47)
[2018-03-02] MEDS: LACTULOSE SYRUP 20 GM/30 ML CUP PO SCH (08:34)
[2018-03-02] MEDS: FERROUS FUMARATE 325 MG TAB (106 MG ELEMENTAL IRON) PO SCH (08:34)
--- NOTE | 2018-03-02 10:14 | RADRPT ---
EXAM DATE: 02/27/2018 2:23 PM EDT AGE/SEX: 89 years / Female INDICATIONS: VAS CATH REMOVAL CLINICAL DATA: This is the patient's encounter. Patient reports that signs and symptoms have been pr esent for and indicates a pain score of . MEDICAL/SURGICAL HISTORY: COMPARISON: No prior [facility] exams available for comparison. IMAGE SERIES: ACCESS SITE: DEVICE(S): . . PROCEDURE: 1. Temporary central venous catheter removal. The prescribed catheter was removed intact and hemostasis was achieved with direct pressure. The sit e was dressed appropriately. The patient tolerated the procedure well. CONCLUSION: 1. Uncomplicated catheter removal. Electronically signed by: Teddy Hdz MD 03/02/2018 10:13 AM EDT
[2018-03-02 11:30] VITALS: BP 102/60; PULSE 79; RESP 20; TEMP 97.8; O2SAT 100
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
[2018-03-02] MEDS: ALPRAZolam 0.25 MG TAB PO PRN (19:17)
[2018-03-02 20:00] VITALS: BP 127/66; PULSE 104; RESP 19; TEMP 98.5; O2SAT 99
[2018-03-02] MEDS: traZODone HCL 50 MG TAB PO SCH (21:53)
[2018-03-02] MEDS ORDERED: HEMO324T PO (22:33)
[2018-03-02] MEDS ORDERED: FAMO20TA2 PO (22:33)
[2018-03-03] VITALS (7 sets, daily range): BP systolic 105–134; BP diastolic 55–80; PULSE 83–89; RESP 16–19; TEMP 97.4–98.5; O2SAT 94–100
[2018-03-03] MEDS: HYDROmorphone HCL 4 MG TAB PO PRN ×5 (02:43→21:08)
[2018-03-03] MEDS: KETOROLAC TROMETHAMINE 30 MG/ML (IVP) VIAL IV PUSH PRN ×3 (02:44→17:09)
[2018-03-03] MEDS: ALPRAZolam 0.25 MG TAB PO PRN ×2 (05:16→13:39)
[2018-03-03] MEDS: GABAPENTIN 100 MG CAP PO SCH (05:16)
[2018-03-03] MEDS: HEPARIN SODIUM - SQ 10,000 UNITS/ML VIAL SQ SCH ×3 (05:17→21:10)
[2018-03-03] MEDS: LACTULOSE SYRUP 20 GM/30 ML CUP PO SCH (07:29)
[2018-03-03] MEDS: FAMOTIDINE 20 MG TAB PO SCH ×2 (07:33→21:08)
[2018-03-03] MEDS: DOCUSATE SODIUM 50 MG/SENNA 8.6 MG TAB PO SCH ×2 (07:34→21:00)
[2018-03-03] MEDS: FERROUS FUMARATE 325 MG TAB (106 MG ELEMENTAL IRON) PO SCH (07:34)
[2018-03-03] MEDS: METOPROLOL TARTRATE 50 MG TAB PO SCH ×2 (07:34→21:08)
[2018-03-03] MEDS: MAGNESIUM HYDROXIDE SUSP 30 ML CUP PO SCH ×2 (07:36→21:00)
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
[2018-03-03] MEDS: fentaNYL 75 MCG/HR PATCH T-DERMAL SCH (11:30)
[2018-03-03] MEDS: REMOVE OLD DURAGESIC (FENTANYL) PATCH T-DERMAL SCH (11:34)
[2018-03-03] MEDS: ACETAMINOPHEN 1000 MG/100 ML 100 ML IV PRN (13:39)
[2018-03-03] MEDS: GABAPENTIN 300 MG CAP PO SCH ×2 (13:39→21:08)
[2018-03-04] VITALS (9 sets, daily range): BP systolic 110–128; BP diastolic 66–84; PULSE 77–95; RESP 16–18; TEMP 97.5–98.6; O2SAT 98–100
[2018-03-04] MEDS: traZODone HCL 50 MG TAB PO SCH ×2 (00:06→22:05)
[2018-03-04] MEDS: HYDROmorphone HCL 4 MG TAB PO PRN ×5 (05:17→22:05)
[2018-03-04] MEDS: GABAPENTIN 300 MG CAP PO SCH ×3 (05:17→20:47)
[2018-03-04] MEDS: HEPARIN SODIUM - SQ 10,000 UNITS/ML VIAL SQ SCH ×3 (05:17→20:48)
[2018-03-04] MEDS: DOCUSATE SODIUM 50 MG/SENNA 8.6 MG TAB PO SCH ×2 (08:00→20:48)
[2018-03-04] MEDS: METOPROLOL TARTRATE 50 MG TAB PO SCH ×2 (08:00→20:47)
[2018-03-04] MEDS: FERROUS FUMARATE 325 MG TAB (106 MG ELEMENTAL IRON) PO SCH (08:00)
[2018-03-04] MEDS: FAMOTIDINE 20 MG TAB PO SCH ×2 (08:01→20:47)
[2018-03-04] MEDS: MAGNESIUM HYDROXIDE SUSP 30 ML CUP PO SCH ×2 (08:02→20:47)
[2018-03-04] MEDS: LACTULOSE SYRUP 20 GM/30 ML CUP PO SCH (08:02)
[2018-03-04] MEDS: ALPRAZolam 0.25 MG TAB PO PRN ×2 (08:06→16:14)
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
[2018-03-04] MEDS: ACETAMINOPHEN 1000 MG/100 ML 100 ML IV PRN ×2 (13:05→16:16)
[2018-03-05] MEDS: HYDROmorphone HCL 4 MG TAB PO PRN ×2 (04:19→07:59)
[2018-03-05 04:32] VITALS: BP 122/79; PULSE 98; RESP 16; TEMP 98.5; O2SAT 98
[2018-03-05] MEDS: GABAPENTIN 300 MG CAP PO SCH (05:27)
[2018-03-05] MEDS: HEPARIN SODIUM - SQ 10,000 UNITS/ML VIAL SQ SCH (05:28)
[2018-03-05 07:13] LABS: BICARBONATE 26.8 MEQ/L (21.0-32.0); CALCIUM 9.5 MG/DL (8.5-10.1); CREATININE 1.39 MG/DL (0.50-1.00)
[2018-03-05] MEDS: LACTULOSE SYRUP 20 GM/30 ML CUP PO SCH (07:50)
[2018-03-05] MEDS: MAGNESIUM HYDROXIDE SUSP 30 ML CUP PO SCH (07:50)
[2018-03-05] MEDS: DOCUSATE SODIUM 50 MG/SENNA 8.6 MG TAB PO SCH (07:50)
[2018-03-05] MEDS: METOPROLOL TARTRATE 50 MG TAB PO SCH (07:58)
[2018-03-05] MEDS: FERROUS FUMARATE 325 MG TAB (106 MG ELEMENTAL IRON) PO SCH (07:59)
[2018-03-05] MEDS: FAMOTIDINE 20 MG TAB PO SCH (07:59)
[2018-03-05 08:00] VITALS: BP 116/85; PULSE 89; RESP 18; TEMP 98.2; O2SAT 97
[2018-03-05] MEDS ORDERED: NEUR300C PO (08:07)
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
[2018-03-15] MEDS ORDERED: [UNRECOGNIZED DRUG - SUPPLY] (14:07)
[2018-03-15] MEDS ORDERED: WHEEMIS3 (14:07)
[2018-03-15] MEDS ORDERED: BEDSIDE COMMODE1 MI1 (14:07)
[2018-03-17] MEDS ORDERED: HEMO324T PO (10:30)
[2018-03-17] MEDS ORDERED: METO-309 PO (10:30)
[2018-03-17] MEDS ORDERED: XARE10TA PO (10:30)
[2018-03-17] MEDS ORDERED: FAMO20TA2 PO (10:30)
[2018-03-17] MEDS ORDERED: SENN187 PO (10:30)
[2018-03-17] MEDS ORDERED: NEUR400C PO (10:30)
[2018-03-19] MEDS ORDERED: HYDR-3583 PO (09:16)
[2018-03-19] MEDS ORDERED: NEUR300C PO (10:20)
== END 2018-03-05 10:39 | DRG 957 ==
LOC: EDBD → NEPI 03:16 → NEDA 03:59 → N03B 04:23 → N06A 02-18 16:17
PROVIDERS: ADMIT Surgery; ATTEND Surgery
PROC: 5A1955Z Respiratory Ventilation, Greater than 96 Consecutive Hours (ICD-10-PCS; principal; 2018-01-22)
PROC: 02HV33Z Insertion of Infusion Device into Superior Vena Cava, Percutaneous Approach (ICD-10-PCS; 2018-01-22)
PROC: 0W9B30Z Drainage of Left Pleural Cavity with Drainage Device, Percutaneous Approach (ICD-10-PCS; 2018-01-22)
PROC: 2W6LX0Z Traction of Right Lower Extremity using Traction Apparatus (ICD-10-PCS; 2018-01-22)
PROC: 0HDLXZZ Extraction of Left Lower Leg Skin, External Approach (ICD-10-PCS; 2018-01-22)
PROC: 0QS4XZZ Reposition Right Acetabulum, External Approach (ICD-10-PCS; 2018-01-22)
PROC: 0SS9XZZ Reposition Right Hip Joint, External Approach (ICD-10-PCS; 2018-01-22)
PROC: 30233N1 Transfusion of Nonautologous Red Blood Cells into Peripheral Vein, Percutaneous Approach (ICD-10-PCS; 2018-01-22)
PROC: 0QSK04Z Reposition Left Fibula with Internal Fixation Device, Open Approach (ICD-10-PCS; 2018-01-23)
PROC: 0PSL04Z Reposition Left Ulna with Internal Fixation Device, Open Approach (ICD-10-PCS; 2018-01-23)
PROC: 0QSH04Z Reposition Left Tibia with Internal Fixation Device, Open Approach (ICD-10-PCS; 2018-01-23)
PROC: 6A550Z2 Pheresis of Platelets, Single (ICD-10-PCS; 2018-01-23)
PROC: 0W9930Z Drainage of Right Pleural Cavity with Drainage Device, Percutaneous Approach (ICD-10-PCS; 2018-01-26)
PROC: 06HN33Z Insertion of Infusion Device into Left Femoral Vein, Percutaneous Approach (ICD-10-PCS; 2018-01-27)
PROC: 0B21XEZ Change Endotracheal Airway in Trachea, External Approach (ICD-10-PCS; 2018-01-28)
PROC: 5A1D70Z Performance of Urinary Filtration, Intermittent, Less than 6 Hours Per Day (ICD-10-PCS; 2018-01-29)
PROC: 0QS404Z Reposition Right Acetabulum with Internal Fixation Device, Open Approach (ICD-10-PCS; 2018-02-06)
PROC: 05HM33Z Insertion of Infusion Device into Right Internal Jugular Vein, Percutaneous Approach (ICD-10-PCS; 2018-02-07)
PROC: 0QSD04Z Reposition Right Patella with Internal Fixation Device, Open Approach (ICD-10-PCS; 2018-02-10)
PROC: 0QSL04Z Reposition Right Tarsal with Internal Fixation Device, Open Approach (ICD-10-PCS; 2018-02-10)
PROC: 0QSN34Z Reposition Right Metatarsal with Internal Fixation Device, Percutaneous Approach (ICD-10-PCS; 2018-02-10)
PROC: 0QSN34Z Reposition Right Metatarsal with Internal Fixation Device, Percutaneous Approach (ICD-10-PCS; 2018-02-10)
PROC: 0QSN34Z Reposition Right Metatarsal with Internal Fixation Device, Percutaneous Approach (ICD-10-PCS; 2018-02-10)
PROC: 0DH67UZ Insertion of Feeding Device into Stomach, Via Natural or Artificial Opening (ICD-10-PCS; 2018-02-14)
PROC: 5A1945Z Respiratory Ventilation, 24-96 Consecutive Hours (ICD-10-PCS; 2018-02-14)
PROC: 0BH17EZ Insertion of Endotracheal Airway into Trachea, Via Natural or Artificial Opening (ICD-10-PCS; 2018-02-14)
PROC: 5A12012 Performance of Cardiac Output, Single, Manual (ICD-10-PCS; 2018-02-14)
PROC: 5A2204Z Restoration of Cardiac Rhythm, Single (ICD-10-PCS; 2018-02-14)
PROC: 0TB03ZX Excision of Right Kidney, Percutaneous Approach, Diagnostic (ICD-10-PCS; 2018-02-19)
DX: S36.039A Unspecified laceration of spleen, initial encounter (principal); S32.481A Displaced dome fracture of right acetabulum, initial encounter for closed fracture; R57.8 Other shock; S82.402B Unspecified fracture of shaft of left fibula, initial encounter for open fracture type I or II; J96.01 Acute respiratory failure with hypoxia; N17.0 Acute kidney failure with tubular necrosis; J69.0 Pneumonitis due to inhalation of food and vomit; G93.40 Encephalopathy, unspecified; S26.91XA Contusion of heart, unspecified with or without hemopericardium, initial encounter; S36.116A Major laceration of liver, initial encounter; S27.1XXA Traumatic hemothorax, initial encounter; S82.142B Displaced bicondylar fracture of left tibia, initial encounter for open fracture type I or II; I49.01 Ventricular fibrillation; S32.10XA Unspecified fracture of sacrum, initial encounter for closed fracture; S52.201A Unspecified fracture of shaft of right ulna, initial encounter for closed fracture; S52.202A Unspecified fracture of shaft of left ulna, initial encounter for closed fracture; S27.322A Contusion of lung, bilateral, initial encounter; S22.41XA Multiple fractures of ribs, right side, initial encounter for closed fracture; S32.592A Other specified fracture of left pubis, initial encounter for closed fracture; S82.041A Displaced comminuted fracture of right patella, initial encounter for closed fracture; Z99.11 Dependence on respirator [ventilator] status; I47.2 Ventricular tachycardia; S73.001A Unspecified subluxation of right hip, initial encounter; J93.82 Other air leak; K56.7 Ileus, unspecified; E87.4 Mixed disorder of acid-base balance; S82.842A Displaced bimalleolar fracture of left lower leg, initial encounter for closed fracture; S20.212A Contusion of left front wall of thorax, initial encounter; N94.89 Other specified conditions associated with female genital organs and menstrual cycle; V48.5XXA Car driver injured in noncollision transport accident in traffic accident, initial encounter; Y92.410 Unspecified street and highway as the place of occurrence of the external cause; S81.012A Laceration without foreign body, left knee, initial encounter; S92.251A Displaced fracture of navicular [scaphoid] of right foot, initial encounter for closed fracture; S92.321A Displaced fracture of second metatarsal bone, right foot, initial encounter for closed fracture; S92.331A Displaced fracture of third metatarsal bone, right foot, initial encounter for closed fracture; S92.341A Displaced fracture of fourth metatarsal bone, right foot, initial encounter for closed fracture; E87.70 Fluid overload, unspecified; R26.9 Unspecified abnormalities of gait and mobility; F10.10 Alcohol abuse, uncomplicated; I27.20 Pulmonary hypertension, unspecified; F43.22 Adjustment disorder with anxiety; D63.1 Anemia in chronic kidney disease; N18.9 Chronic kidney disease, unspecified; E87.5 Hyperkalemia; J98.01 Acute bronchospasm; S92.101A Unspecified fracture of right talus, initial encounter for closed fracture; Z88.1 Allergy status to other antibiotic agents
CPT/HCPCS: 31500; 32551; 36430; 36556; 36600; 36620; 43753; 50200; 70450; 71045; 71260; 72125; 72129; 72132; 72170; 72190; 73090; 73501; 73551; 73560; 73600; 73610; 73620; 73630; 73700; 74177; 76000; 76377; 76775; 76937; 77001; 77012; 80048; 80053; 80069; 80074; 81001; 82550; 82552; 82728; 82805; 83540; 83550; 83605; 83735; 84100; 84145; 84155; 85007; 85014; 85018; 85025; 85027; 85049; 85347; 85610; 85730; 86160; 86803; 86850; 86900; 86901; 86920; 87040; 87070; 87086; 87205; 87641; 90471; 90935; 92950; 93005; 93306; 94002; 94003; 94150; 94640; 94664; 94667; 94668; 96374; 96375; 99152; 99153; 99291; C1713; C1752; C9113; E0880; G0390; J0131; J0171; J0282; J0330; J0610; J0690; J0692; J0712; J1100; J1160; J1170; J1580; J1630; J1644; J1650; J1885; J1940; J2020; J2060; J2185; J2248; J2250; J2270; J2370; J2405; J2765; J3010; J3370; J3480; J7030; J7050; J7070; J7120; L0150; L0172; L1830; P9016; P9035; P9045; P9047; Q4081; Q9967

== ENCOUNTER 2018-07-24 05:24 | Inpatient (IN) ==
[2018-07-24] MEDS ORDERED: Metoprolol Tartrate 25 MG Tablet PO ONE ×2 (05:52→05:53)
[2018-07-24] MEDS ORDERED: Chlorhexidine Gluconate 2% 1 Pack (2 Cloths) TOPICAL ONE ×2 (05:52→05:53)
[2018-07-24] MEDS ORDERED: Sodium Chlor 0.9% Inj 500 ML IV.SIG SCH ×2 (06:00)
[2018-07-24] MEDS ORDERED: Glycopyrrolate Inj 1 MG/5 ML Syringe IV.PUSH ONE (07:17)
[2018-07-24] MEDS ORDERED: Lidocaine PF 1% Inj 5 ML Syringe OTHER ONE (07:17)
[2018-07-24] MEDS ORDERED: Phenylephrine/NS 1000 MCG/10ML Syringe IV.PUSH ONE (07:17)
[2018-07-24] MEDS ORDERED: Esmolol Bolus Inj 100 MG/10 ML Vial IV.PUSH ONE (07:17)
[2018-07-24] MEDS ORDERED: Neostigmine Inj 5 MG/5 ML Syringe IV.PUSH ONE (07:17)
[2018-07-24] MEDS ORDERED: Sodium Chlor 0.9% Inj 40 ML, Bupivacaine Liposo PF 1.3% Inj 20 ML P-ARTICULR SCH ×2 (07:45)
[2018-07-24] MEDS ORDERED: Bupivacaine/Epinephrine Inj 0.25% 50 ML Vial ONE (07:50)
[2018-07-24] MEDS ORDERED: Tobramycin Sulfate 1,200 MG Vial (for ortho/sterile core) OTHER ONE (07:52)
[2018-07-24] MEDS ORDERED: Tranexamic Acid Inj 870 MG in Sodium Chlor 0.9% Inj 100 ML IV.SIG SCH (08:00)
[2018-07-24] MEDS ORDERED: fentaNYL Citrate Inj 250 MCG/5 ML Ampul ONE (08:33)
[2018-07-24] MEDS ORDERED: Post-op Orders (for Pharmacy) OTHER STA (09:04)
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
[2018-07-24] MEDS ORDERED: *Meperidine Inj 25 MG/ML Vial PERIprocedural Use ONLY ONE (09:41)
[2018-07-24] MEDS ORDERED: *morphine SULFATE 10 MG/ML PERIprocedure ONLY ONE ×2 (09:47→09:59)
[2018-07-24] MEDS ORDERED: fentaNYL Citrate Inj 100 MCG/2 ML Ampul ONE ×2 (09:48)
[2018-07-24] MEDS ORDERED: *HYDROmorphone PF Inj 1 MG/ML Ampul PERIprocedural Use ONLY ONE (10:07)
--- NOTE | 2018-07-24 10:20 | XR ---
EXAM DATE: 07/24/2018 9:05 AM EDT AGE/SEX: 37 years / Female INDICATIONS: Post op right total hip replacement. CLINICAL DATA: This is the patient's initial encounter. Patient reports that signs and symptoms have been present for 1 day and indicates a pain score of 9/10. MEDICAL/SURGICAL HISTORY: None. . ORIF right acetabulum. COMPARISON: [facility] [place], CT HIP RIGHT W/O CONTRAST, 06/14/2018. . FINDINGS: A right total hip arthroplasty is noted. Acetabular and femoral components appear well seated. Plate and screw fixation hardware at the level of the acetabulum is again noted. Small amount of subcutaneo us air is seen and overlying skin rodri. CONCLUSION: Status post right total hip arthroplasty. Electronically signed by: Dimitris Bhat MD 07/24/2018 10:18 AM EDT
[2018-07-24] MEDS: Morphine Inj 4 MG/ML Vial IV.PUSH PRN ×4 (12:13→21:52)
[2018-07-24] MEDS: Calcium/Vitamin D 250/125 MG Tablet PO SCH ×2 (12:13→18:03)
[2018-07-24] MEDS: ceFAZolin Inj 2,000 MG in Sodium Chlor 0.9% Inj 80 ML IV.SIG SCH ×2 (16:16→23:29)
[2018-07-24] MEDS ORDERED: Vancomycin Inj 1 GM/200 ML PIGGYBACK IV.SIG SCH (20:00)
[2018-07-24] MEDS: Vancomycin Inj 1,000 MG in Sodium Chlor 0.9% Inj 250 ML IV.SIG SCH (20:09)
[2018-07-24] MEDS: Gabapentin 300 MG Capsule PO SCH (20:10)
[2018-07-24] MEDS: Senna/Docusate Sodium 8.6/50 MG Tablet PO SCH (20:11)
[2018-07-25] MEDS: Morphine Inj 4 MG/ML Vial IV.PUSH PRN ×6 (04:07→23:47)
[2018-07-25] MEDS: Enoxaparin Inj 40 MG/0.4 ML Syringe SQ SCH (06:11)
--- NOTE | 2018-07-25 06:51 | P.PNOP ---
Subjective Interval history: States the pain is controlled. She is happy with her progress. She took 4 steps yesterday. She is in bed with knee immobilizer and abduction pillow Physical Exam Vital signs: Vital Signs 07/24/18 09:36 07/24/18 09:45 07/24/18 10:00 Temperature 97.6 F Pulse Rate 67 79 63 Respiratory Rate 12 16 21 Blood Pressure 177/69 H 163/87 H 154/77 H Pulse Oximetry 100 07/24/18 10:15 07/24/18 10:24 07/24/18 10:30 Temperature Pulse Rate 71 59 L Respiratory Rate 20 6 L 7 L Blood Pressure 128/70 100/57 L Pulse Oximetry 100 95 07/24/18 10:45 07/24/18 11:00 07/24/18 11:15 Temperature 97.6 F Pulse Rate 65 82 Respiratory Rate 8 L 8 L 17 Blood Pressure 101/59 L 108/68 Pulse Oximetry 94 L 98 07/24/18 11:23 07/24/18 11:30 07/24/18 11:50 Temperature 97.4 F L Pulse Rate 58 L 55 L Respiratory Rate 10 L 10 L 16 Blood Pressure 103/63 112/65 Pulse Oximetry 96 97 07/24/18 17:11 07/24/18 19:11 07/24/18 20:00 Temperature 97.5 F L 97.8 F Pulse Rate 56 L 52 L Respiratory Rate 16 17 18 Blood Pressure 111/86 134/74 Pulse Oximetry 99 98 07/24/18 21:58 07/24/18 23:29 07/25/18 00:00 Temperature 98.0 F Pulse Rate 69 Respiratory Rate 18 18 18 Blood Pressure 129/58 L Pulse Oximetry 98 07/25/18 04:12 07/25/18 05:17 07/25/18 05:18 Temperature 97.9 F Pulse Rate 65 Respiratory Rate 18 18 18 Blood Pressure 115/62 Pulse Oximetry 97 07/25/18 06:20 Temperature Pulse Rate Respiratory Rate 18 Blood Pressure Pulse Oximetry Intake & Output 07/24/18 07/24/18 07/25/18 06:59 18:59 06:59 Intake Total 1968.7 / 1968.7 1829 Output Total 200 / 200 Balance 1768.7 / 1768.7 1829 Weight 58 kg 58 kg Intake: IV 208.7 / 208.7 1350 / 1350 LR 1000 mL Inj 1,000 ML @ 50 1000 / 1000 mls/hr IV.CONT .Q20H MADALYN Rx#: [id number] Cyklokapron Inj 870 MG In NS 108.7 / 108.7 Inj 100 ML @ 200 mls/hr IV.SIG ONCE MADALYN Rx#:[id number] Vancomycin Inj 1,000 MG In NS 250 / 250 Inj 250 ML @ 200 mls/hr IV.SIG Q12H MADALYN Rx#:[id number] Ancef Inj 2,000 MG In NS Inj 80 100 / 100 100 / 100 ML @ 200 mls/hr IV.SIG Q8H MADALYN Rx#:[id number] Oral 360 / 360 480 / 480 Anesthesia Amount 1400 / 1400 Output: Estimated Blood Loss 200 / 200 Other: # Voids 2 1 # Bowel Movements 0 0 Weight On Admission 58 kg Narrative: Right lower extremity: Clean dry dressings intact. Mild swelling. Knee immobilizer in place. Intact sensation distally with continued chronic foot drop. She has active plantar flexion. Intact distal pulses and capillary refills Results - Labs Laboratory Results - last 24 hr 07/24/18 06:21 Blood Type AB Positive Blood Type Recheck Required Antibody Screen Negative Microbiology 07/24/18 08:01 Tissue - Hip Fungal Smear - Final No fungal elements seen 07/24/18 08:01 Tissue - Other Fungal Smear - Final No fungal elements seen 07/24/18 08:01 Tissue - Hip Gram Stain - Final 07/24/18 08:01 Tissue - Other Gram Stain - Final - Imaging Impressions Hip X-Ray 07/24/18 09:05 CONCLUSION: Status post right total hip arthroplasty. Assessment and Plan - Assessment and Plan Right total hip arthroplasty due to posttraumatic osteoarthritis and dislocation of femoral head POD 1 Physical therapyweightbearing as tolerated with strict posterior hip precautions. Maintain knee immobilizer at all times. Abduction pillow while in bed. Will order Multi-Podus boot due to foot drop and place order for ankle foot orthosis Lovenox Incentive spirometry Maintain dressing over incision for 6 days unless drainage. Then replaced with Primapore. Again adding Xeroform to incision on 08/04/2018 with Primapore We will look into possible discharge to home tomorrow or Monday
[2018-07-25] MEDS: Gabapentin 300 MG Capsule PO SCH ×2 (08:30→20:03)
[2018-07-25] MEDS: Sertraline 50 MG Tablet PO SCH (08:30)
[2018-07-25] MEDS: Metoprolol Tartrate 50 MG Tablet PO SCH (08:30)
[2018-07-25] MEDS: Calcium/Vitamin D 250/125 MG Tablet PO SCH ×3 (08:30→18:21)
[2018-07-25] MEDS: Vancomycin Inj 1,000 MG in Sodium Chlor 0.9% Inj 250 ML IV.SIG SCH (08:30)
[2018-07-25] MEDS: Senna/Docusate Sodium 8.6/50 MG Tablet PO SCH ×2 (08:30→20:03)
[2018-07-25] MEDS: ceFAZolin Inj 2,000 MG in Sodium Chlor 0.9% Inj 80 ML IV.SIG SCH (08:32)
[2018-07-25 13:05] LABS: Hematocrit 30.4 % (35.0-46.0)
[2018-07-26] MEDS: Morphine Inj 4 MG/ML Vial IV.PUSH PRN ×6 (04:59→22:24)
[2018-07-26] MEDS: Enoxaparin Inj 40 MG/0.4 ML Syringe SQ SCH (05:49)
--- NOTE | 2018-07-26 06:39 | P.PNOP ---
Subjective Interval history: States that she has continued to progress well. She is hoping to go home today Physical Exam Vital signs: Vital Signs 07/25/18 08:00 07/25/18 12:00 07/25/18 15:56 Temperature 97.9 F 97.9 F 98.1 F Pulse Rate 67 68 61 Respiratory Rate 16 16 16 Blood Pressure 145/73 H 125/56 L 107/54 L Pulse Oximetry 100 98 100 07/25/18 19:00 07/26/18 00:00 Temperature 98.0 F 98.6 F Pulse Rate 70 66 Respiratory Rate 18 18 Blood Pressure 114/66 101/55 L Pulse Oximetry 96 97 Intake & Output 07/25/18 07/25/18 07/26/18 06:59 18:59 06:59 Intake Total 1830 / 1830 980 / 980 1480 / 1480 Output Total 500 / 500 Balance 1830 / 1830 480 / 480 1480 / 1480 Weight 58 kg 58 kg Intake: IV 1350 / 1350 1000 / 1000 LR 1000 mL Inj 1,000 ML @ 50 1000 / 1000 1000 / 1000 mls/hr IV.CONT .Q20H MADALYN Rx#: [id number] Vancomycin Inj 1,000 MG In NS 250 / 250 Inj 250 ML @ 200 mls/hr IV.SIG Q12H MADALYN Rx#:[id number] Ancef Inj 2,000 MG In NS Inj 80 100 / 100 ML @ 200 mls/hr IV.SIG Q8H MADALYN Rx#:[id number] Oral 480 / 480 980 / 980 480 / 480 Output: Urine 500 / 500 Other: # Voids 1 3 5 Date of Last Bowel Movement 07/25/18 07/23/18 # Bowel Movements 0 3 0 Narrative: Right lower extremity: Clean dry dressings intact. Minimal swelling. Minimal pain with forward flexion internal and external rotation of the hip passively. No knee pain over the patella. Continued foot drop and intact distal pulses and capillary refill Results - Labs CBC & Chem 7: 07/25/18 12:33 Laboratory Results - last 24 hr 07/25/18 12:33 Hgb 10.0 L Hct 30.4 L Microbiology 07/24/18 08:01 Tissue - Hip Acid Fast Bacilli Smear - Final No acid fast bacilli seen 07/24/18 08:01 Tissue - Other Acid Fast Bacilli Smear - Final No acid fast bacilli seen 07/24/18 08:01 Tissue - Hip Gram Stain - Final 07/24/18 08:01 Tissue - Hip Wound Culture - Preliminary No growth in 24 hours 07/24/18 08:01 Tissue - Other Gram Stain - Final 07/24/18 08:01 Tissue - Other Wound Culture - Preliminary No growth in 24 hours Assessment and Plan - Assessment and Plan Right total hip arthroplasty due to posttraumatic osteoarthritis and dislocation of femoral head POD 2 Physical therapyweightbearing as tolerated with strict posterior hip precautions. Maintain knee immobilizer at all times. Abduction pillow while in bed. Multi-Podus boot while in bed. Wear AFO when ambulating Lovenox Incentive spirometry Maintain dressing over incision for 6 days unless drainage. Then replaced with Primapore. Again adding Xeroform to incision on 08/04/2018 with Primapore We will look into possible discharge to home today or Monday Follow-up with Dr. Suazo or PA in 2 weeks
--- NOTE | 2018-07-26 06:45 | P.DCO ---
- Physical Therapy Physical Therapy: Gait training, Safety evaluation Hip: Posterior hip precautions, Abduction pillow while in bed Canvas Knee Splint: At all times Right Lower Extremity Weight Bearing: Weight bearing as tolerated, No quad sets - Nursing Dressing changes: Daily dressing change (Beginning 07/29 with Primapore only. Begin adding Xeroform daily starting 08/04/2018 with Primapore) - Certification Need for Home Health services: I have seen patient April Mason on 07/26/18. My clinical findings support the need for the requested home health care services because: Need for Home Health Services: Limited mobility due to disease progression Homebound Certification: I certify that my clinical findings support that this patient is homebound because: Homebound Certification: Post-op weakness
[2018-07-26] MEDS: Gabapentin 300 MG Capsule PO SCH ×2 (08:01→20:33)
[2018-07-26] MEDS: Sertraline 50 MG Tablet PO SCH (08:02)
[2018-07-26] MEDS: Senna/Docusate Sodium 8.6/50 MG Tablet PO SCH ×2 (08:02→20:33)
[2018-07-26] MEDS: Metoprolol Tartrate 50 MG Tablet PO SCH (08:06)
[2018-07-26] MEDS: Calcium/Vitamin D 250/125 MG Tablet PO SCH ×3 (08:07→17:16)
[2018-07-27 00:55] VITALS: O2SAT 100
[2018-07-27] MEDS: Morphine Inj 4 MG/ML Vial IV.PUSH PRN ×2 (02:01→06:00)
[2018-07-27] MEDS: Enoxaparin Inj 40 MG/0.4 ML Syringe SQ SCH (06:00)
--- NOTE | 2018-07-27 06:48 | P.PNOP ---
Subjective Interval history: POD 3 s/p right total hip arthroplasty doing well. states pain but controlled. reports was ambulating in [place] yesterday and feels comfortable to go home today Physical Exam Vital signs: Vital Signs 07/26/18 08:00 07/26/18 12:00 07/26/18 16:00 Temperature 98.3 F 98.8 F 98.2 F Pulse Rate 71 78 75 Respiratory Rate 16 16 Blood Pressure 112/56 L 126/60 117/56 L Pulse Oximetry 16 L 100 100 07/26/18 20:00 07/27/18 00:00 Temperature 98.0 F 98.0 F Pulse Rate 77 84 Respiratory Rate 15 15 Blood Pressure 107/58 L 128/58 L Pulse Oximetry 98 100 Intake & Output 07/26/18 07/26/18 07/27/18 06:59 18:59 06:59 Intake Total 1480 / 1480 1940 / 1940 600 / 600 Balance 1480 / 1480 1940 / 1940 600 / 600 Weight 58 kg Intake: IV 1000 / 1000 1100 / 1100 LR 1000 mL Inj 1,000 ML @ 50 1000 / 1000 mls/hr IV.CONT .Q20H MADALYN Rx#: [id number] Oral 480 / 480 840 / 840 600 / 600 Other: # Voids 5 5 4 Date of Last Bowel Movement 07/23/18 # Bowel Movements 0 0 Narrative: RLE: dressing clean and dry. intact. +CKS. +PODUS boot,. full sensation Results - Labs CBC & Chem 7: 07/25/18 12:33 Microbiology 07/24/18 08:01 Tissue - Hip Gram Stain - Final 07/24/18 08:01 Tissue - Hip Wound Culture - Preliminary No growth in 48 hours 07/24/18 08:01 Tissue - Other Gram Stain - Final 07/24/18 08:01 Tissue - Other Wound Culture - Preliminary No growth in 48 hours Assessment and Plan - Problem List (1) Status post right hip replacement Code(s): Z96.641 - Presence of right artificial hip joint Status: Acute - Assessment and Plan 1) Right total hip arthroplasty due to posttraumatic osteoarthritis and dislocation of femoral head POD 3 Physical therapyweightbearing as tolerated with strict posterior hip precautions. Maintain knee immobilizer at all times. Abduction pillow while in bed. Multi-Podus boot while in bed. Wear AFO when ambulating Lovenox Incentive spirometry Maintain dressing over incision for 6 days unless drainage. Then replaced with Primapore. Again adding Xeroform to incision on 08/04/2018 with Primapore plan for home with [facility] today Follow-up with Dr. Suazo or PA in 2 weeks [facility] Prescription Drug Monitoring Database has been queried and verified prior to prescribing the controlled substance. Acute pain exception. This patient has normal, predicted, physiological, and time limited response to an adverse mechanical stimulus associated with surgery, trauma, or acute illness as described in my notes. There is a lack of alternative treatment options other than to include the prescribed narcotic treatment for this condition.
--- NOTE | 2018-07-27 06:53 | P.DS ---
Date of admission: 07/24/18 05:24 Primary care physician: No Primary Care Physician Attending physician on discharge: Michael Nuno Anticipated date of discharge: 07/27/18 Brief History from admission: Patient is previously known to us as she was a trauma earlier in the year. She had a right acetabulum fracture that was fixed surgically. Since then, she has developed chronic hip dislocations that was unable to remain reduced. Therefore , the only option moving forward was for an elective right total hip arthroplasty. DS: Diagnosis - Discharge Diagnosis (1) Status post right hip replacement Status: Acute DS: Summary Hospital Course: Patient was admitted from an outpatient basis for elective right total hip arthroplasty. She tolerated the procedure well. She was out of bed with therapy on postop day 1. She had moderate pain in the right hip. Dressing changes will be initiated on postop day 6. On postop day 3, patient was ambulating well. She was hemodynamically stable and fit for discharge home with home health care. She will remain fully weightbearing in the right leg. She will maintain her knee brace. She will have strict posterior hip precautions. She will begin daily dressing changes on postop day 7 with a [place] dressing. She will follow-up in 2 weeks for repeat x-rays of the right hip and pelvis with Dr. Nuno or his PA. - Time Spent with Patient Total time spent providing and/or coordinating discharge services: Less than 30 minutes - Quality: VTE Deep Vein Thrombosis/Pulmonary Embolism Present on Admission: No Exam Vital signs: Vital Signs 07/26/18 08:00 07/26/18 12:00 07/26/18 16:00 Temperature 98.3 F 98.8 F 98.2 F Pulse Rate 71 78 75 Respiratory Rate 16 16 Blood Pressure 112/56 L 126/60 117/56 L Pulse Oximetry 16 L 100 100 07/26/18 20:00 07/27/18 00:00 Temperature 98.0 F 98.0 F Pulse Rate 77 84 Respiratory Rate 15 15 Blood Pressure 107/58 L 128/58 L Pulse Oximetry 98 100 Intake & Output 07/26/18 07/26/18 07/27/18 06:59 18:59 06:59 Intake Total 1480 / 1480 1940 / 1940 600 / 600 Balance 1480 / 1480 1940 / 1940 600 / 600 Weight 58 kg Intake: IV 1000 / 1000 1100 / 1100 LR 1000 mL Inj 1,000 ML @ 50 1000 / 1000 mls/hr IV.CONT .Q20H [facility] Rx#: [id number] Oral 480 / 480 840 / 840 600 / 600 Other: # Voids 5 5 4 Date of Last Bowel Movement 07/23/18 # Bowel Movements 0 0 Narrative: RLE: dressing clean and dry. intact. +CKS. +PODUS boot,. full sensation Results Procedures completed during hospitalization: Right posterior total hip arthroplasty Labs on day of discharge: Preliminary micro results at discharge 07/24/18 08:01 Wound Culture - Preliminary Tissue - Hip No growth in 48 hours 07/24/18 08:01 Wound Culture - Preliminary Tissue - Other No growth in 48 hours - Impressions ITS Impressions Hip X-Ray 07/24/18 09:05 CONCLUSION: Status post right total hip arthroplasty. Discharge Plan - Discharge Disposition Patient Disposition: /Home Health Service - Discharge Condition Condition: Good - Discharge Order Discharge Orders: Discharge Order (Routine); Ordered 07/27/18 Ordered By: Irving Agee - Physicians Team Primary Care Provider: Primary Care Kat Boyd Attending Provider: Michael Nuno Other Providers: [facility] - [facility]xs /Orders / Referrals /Forms Prescriptions: Continue gabapentin 600 mg Tablet 600 mg PO BID hydrocodone-acetaminophen 10-325 mg Tablet 1 tab PO Q4-6H PRN (Reason: Pain) metoprolol tartrate [Lopressor] 50 mg Tablet 50 mg PO DAILY sertraline [Zoloft] 50 mg Tablet 25 mg PO DAILY Referrals: Primary Care Kat Boyd [Primary Care Provider] - See Instructions Michael Nuno MD [Physician] - See Instructions (2 weeks) - Discharge Instructions Patient Printed Instructions: Total Hip Replacement (DC) Additional Instructions: Regular diet as tolerated Weight bearing as tolerated Keep dressing clean, dry, and intact Do not change dressing Take medication as prescribed Follow up with MD as instructed - Post Discharge Care Plan Care Plan Goals: Your Health Problems: Goals to Promote Your Health: * To prevent worsening of your condition * To maintain your health at the optimal level Directions to Meet Your Goals: * Take your medications as prescribed * Follow your dietary instruction * Follow activity as directed * Keep your appointments as scheduled * Take your immunizations and boosters as scheduled * If your symptoms worsen call your PCP * If no PCP go to Urgent Care or Emergency Room Smoking is dangerous to your health. Avoid second hand smoke. You may reach the 24-hour crisis hotline for domestic abuse at .
[2018-07-27] MEDS: Metoprolol Tartrate 50 MG Tablet PO SCH ×2 (07:22→08:55)
[2018-07-27] MEDS: Gabapentin 300 MG Capsule PO SCH ×2 (07:22→08:56)
[2018-07-27] MEDS: Senna/Docusate Sodium 8.6/50 MG Tablet PO SCH ×2 (07:23→08:56)
[2018-07-27] MEDS: Calcium/Vitamin D 250/125 MG Tablet PO SCH ×2 (07:23→08:56)
[2018-07-27] MEDS: Sertraline 50 MG Tablet PO SCH ×2 (07:23→08:56)
[2018-07-27 07:26] VITALS: BP 121/70; PULSE 77; RESP 17; TEMP 97.9
== END 2018-07-27 11:16 | disposition home health service (06) ==
LOC: HSDI 05:24 → N06 11:49
PROVIDERS: ADMIT Orthopaedic Surgery Orthopaedic Trauma; ATTEND Orthopaedic Surgery Orthopaedic Trauma